=== PATIENT | female | born 1955 | race American Indian/Alaskan Native ===

== ENCOUNTER 2016-09-11 09:52 | Observation (INO) | payer OTHER ==
[2016-09-11] MEDS ORDERED: PROVENTIL IH ONE ×2 (10:13→10:39)
--- NOTE | 2016-09-11 10:34 | XRay Report ---
Single view chest: History: Dyspnea. Findings: Normal cardiomediastinal silhouette. Trachea is midline. No consolidation, pneumothorax or pleural effusion. Impression: No acute cardiopulmonary findings.
[2016-09-11 10:35] LABS: Basophils % (Auto) 0.4 % (0.0-1.8); Eosinophils % (Auto) 1.1 % (0.0-4.3); Hematocrit 39.4 % (30.3-42.9); Hemoglobin 12.8 gm/dl (10.1-14.3); Mean Corpuscular HGB Conc 33 % (30-34); Mean Corpuscular Hemoglobin 30 pg (28-32); Mean Corpuscular Volume 92 fl (79-97); Platelet Count 290 K/mm3 (140-440); Red Blood Count 4.27 M/mm3 (3.65-5.03); Red Cell Distribution Width 14.4 % (13.2-15.2); White Blood Count 18.7 K/mm3 (4.5-11.0)
[2016-09-11 10:52] LABS: Anion Gap 16 mmol/L; BUN/Creatinine Ratio 23.33; Blood Urea Nitrogen 14 mg/dL (7-17); Calcium 9.3 mg/dL (8.4-10.2); Carbon Dioxide 27 mmol/L (22-30); Chloride 101.6 mmol/L (98-107); Glucose 112 mg/dL (65-100); Potassium 3.8 mmol/L (3.6-5.0); Sodium 141 mmol/L (137-145)
[2016-09-11] MEDS ORDERED: NACL 0.9% 1000 ML 1,000 ML IV ONE (10:52)
[2016-09-11] MEDS ORDERED: MAGNESIUM SULFATE 2GM/50ML 2 GM/50 ML BAG IV ONE (10:52)
[2016-09-11 11:31] LABS: Creatine Kinase MB 2.7 ng/mL (0.0-4.0)
--- NOTE | 2016-09-11 11:47 | Emergency Department Report ---
ED Shortness of Breath HPI - General Chief Complaint: Dyspnea/Respdistress Stated Complaint: ADRIAN Time Seen by Provider: 09/11/16 10:52 Source: patient, EMS Mode of arrival: Stretcher Limitations: Other - History of Present Illness MD Complaint: shortness of breath, "asthma attack" -: Gradual Consistency: constant Improves With: oxygen, bronchodilators, upright position Worsens With: lying flat Known History Of: COPD, asthma Context: recent URI Treatments Prior to Arrival: oxygen, bronchodilator - Related Data Home Oxygen Therapy: No Previous Rx's Medication Instructions Recorded Last Taken Type Arformoterol Nebu [Brovana Nebu] 15 mcg IH Q12HRT #60 ml 06/05/16 1 Day Ago Rx 15 Budesonide [Pulmicort Respules] 0.5 mg IH Q12HRT #60 nebu 06/05/16 1 Day Ago Rx 0.5 amLODIPine [Norvasc] 10 mg PO DAILY #30 tablet 06/05/16 1 Day Ago Rx 10 Albuterol Sulfate [Ventolin HFA] 2 puff IH Q4H PRN #90 pump 07/04/16 Unknown Rx Famotidine [Pepcid] 20 mg PO QDAY #30 tablet 07/04/16 Unknown Rx Levofloxacin [Levaquin TAB] 750 mg PO Q24H #5 tablet 07/04/16 Unknown Rx predniSONE [Deltasone] 50 mg PO QDAY #7 tab 07/04/16 Unknown Rx Allergies Allergy/AdvReac Type Severity Reaction Status Date / Time aspirin AdvReac Unknown Verified 09/11/16 10:40 ED Review of Systems ROS: Stated complaint: ADRIAN Other details as noted in HPI Constitutional: denies: chills, fever Eyes: denies: eye pain, eye discharge, vision change ENT: denies: ear pain, throat pain Respiratory: denies: cough, shortness of breath, wheezing Cardiovascular: denies: chest pain, palpitations Endocrine: no symptoms reported Gastrointestinal: denies: abdominal pain, nausea, diarrhea Genitourinary: denies: urgency, dysuria, discharge Musculoskeletal: denies: back pain, joint swelling, arthralgia Skin: denies: rash, lesions Neurological: denies: headache, weakness, paresthesias Psychiatric: denies: anxiety, depression Hematological/Lymphatic: denies: easy bleeding, easy bruising ED Past Medical Hx - Past Medical History Previous Medical History?: Yes Hx Hypertension: Yes Hx Congestive Heart Failure: No Hx Diabetes: No Hx Asthma: Yes (unknown) Hx COPD: Yes (Dx October 2014) Hx HIV: (unknown) Additional medical history: anxiety. Denies previous intubation - Surgical History Past Surgical History?: Yes Additional Surgical History: Ovary surgery - Social History Smoking Status: Never Smoker Substance Use Type: None - Medications Home Medications: Home Medications Medication Instructions Recorded Confirmed Last Taken Type Arformoterol Nebu [Brovana Nebu] 15 mcg IH Q12HRT #60 ml 06/05/16 07/03/16 1 Day Ago Rx 15 Budesonide [Pulmicort Respules] 0.5 mg IH Q12HRT #60 nebu 06/05/16 07/03/16 1 Day Ago Rx 0.5 amLODIPine [Norvasc] 10 mg PO DAILY #30 tablet 06/05/16 07/03/16 1 Day Ago Rx 10 Albuterol Sulfate [Ventolin HFA] 2 puff IH Q4H PRN #90 pump 07/04/16 Unknown Rx Famotidine [Pepcid] 20 mg PO QDAY #30 tablet 07/04/16 Unknown Rx Levofloxacin [Levaquin TAB] 750 mg PO Q24H #5 tablet 07/04/16 Unknown Rx predniSONE [Deltasone] 50 mg PO QDAY #7 tab 07/04/16 Unknown Rx ED Physical Exam - General Limitations: Other General appearance: alert, anxious, in distress - Head Head exam: Present: atraumatic, normocephalic - ENT ENT exam: Present: mucous membranes moist - Neck Neck exam: Present: normal inspection - Respiratory Respiratory exam: Present: respiratory distress, wheezes, rhonchi, accessory muscle use, decreased breath sounds, prolonged expiratory - Cardiovascular Cardiovascular Exam: Present: regular rate, tachycardia. Absent: systolic murmur, diastolic murmur, rubs, gallop - GI/Abdominal GI/Abdominal exam: Present: soft, distended - Extremities Exam Extremities exam: Present: normal inspection - Back Exam Back exam: Present: normal inspection - Skin Skin exam: Present: warm, dry, intact, normal color. Absent: rash ED Course Vital Signs 09/11/16 09/11/16 09/11/16 09:52 10:01 10:06 Temperature 97.3 F L Pulse Rate 114 H 115 H Respiratory 43 H 42 H 35 H Rate Blood Pressure 108/56 108/56 O2 Sat by Pulse 90 93 94 Oximetry 09/11/16 09/11/16 09/11/16 10:15 10:26 10:31 Temperature Pulse Rate 117 H 116 H Respiratory 26 H 22 Rate Blood Pressure 103/59 103/59 O2 Sat by Pulse 94 94 92 Oximetry 09/11/16 09/11/16 09/11/16 10:45 11:00 11:15 Temperature Pulse Rate 121 H 108 H 102 H Respiratory 34 H 30 H 26 H Rate Blood Pressure 112/73 111/68 101/60 O2 Sat by Pulse 87 89 92 Oximetry ED Medical Decision Making - Lab Data Result diagrams: 09/11/16 10:19 09/11/16 10:19 - EKG Data -: EKG Interpreted by Me EKG shows normal: sinus rhythm Rate: normal, tachycardia - EKG Data When compared to previous EKG there are: no significant change, previous EKG unavailable - Radiology Data cxr negative - Medical Decision Making patient will need admission for copd exacerbation. cxr negative / labs negative Critical Care Time: Yes (35) Critical care time in (mins) excluding proc time.: 35 Critical care attestation.: If time is entered above; I have spent that time in minutes in the direct care of this critically ill patient, excluding procedure time. ED Disposition Clinical Impression: COPD exacerbation, Acute bronchitis, Respiratory distress Clinical Impression: (Ruled Out): Hypokalemia Disposition: OP ADMITTED IP TO THIS HOSP Is pt being admited?: Yes Does the pt Need Aspirin: No Condition: Critical Instructions: Chronic Obstructive Pulmonary Disease (ED), Acute Bronchitis (ED) Referrals: PRIMARY CARE, [Primary Care Provider] - 3-5 Days Time of Disposition: 11:47
--- NOTE | 2016-09-11 12:20 | Admit Criteria Form ---
Admission Criteria Documentation: COPD Clinical Indications for Admission to Inpatient Care (Place 'X' for any and all applicable criteria): Admission is indicated for ANY ONE of the following (1)(2)(3): [ ]I. Acute exacerbation by high-risk comorbidity (e.g., pneumonia, dysrhythmia, heart failure, pleural effusion, pneumothorax) or severe underlying COPD (e.g., steroid dependent) [X ]II. Inpatient admission required rather than observation care (see Chronic Obstructive Pulmonary Disease: Observation Care) because of ANY ONE of the following: [X ]a) New or pre-existing signs or symptoms of COPD (eg, dyspnea or Tachypnea at rest or with minimal activity) that persist despite outpatient and observation care treatment [ ]b) New-onset hypoxemia (room air SaO2 less than 90%, PO2 less than 60 mm Hg (8.0 kPa)) that persists despite outpatient and observation care treatment [ ]c) Worsening of pre-existing hypoxemia (eg, new or increased requirement for supplemental oxygen to maintain oxygenation at baseline level) that persists despite outpatient and observation care treatment, with oxygen treatment needs performable only in acute inpatient setting [ ]d) Hypercarbia (PCO2 greater than 40 mm Hg (5.3 kPa))-induced respiratory acidosis (pH less than 7.35) that persists despite outpatient and observation care treatment [ ]e) Supplemental oxygen or respiratory treatments for over 24 hours that are performable only in acute inpatient setting [ ]f) Chest tube placement with active evacuation (e.g., suction, drainage) (5) [ ]g) Other condition, treatment or monitoring requiring inpatient admission [ ]III. Planned invasive surgical or diagnostic procedures requiring acute- care hospitalization [ ]IV. Acute respiratory failure (e.g., uncompensated hypercarbia, severe hypoxemia) [ ]V. Severe comorbid condition (e.g., severe steroid myopathy, acute vertebral fracture) that has acutely worsened pulmonary function [ ]. Confusion state, lethargy, obtundation, stupor or coma Extended stay beyond goal length of stay may be needed for (31)(32): [ ]a ) Respiratory Failure. [ ]b) Severe or persisting hypoxemia or hypercarbia [ ]c) Severe or persistent dyspnea [ ]d) Comorbidities (e.g. chronic heart failure, atrial fibrillation with rapid response, pneumonia) [ ]e) Malnutrition The original [facility] content created by [facility] has been revised. The portions of the content which have been revised are identified through the use of italic text or in bold, and [facility] has neither reviewed nor approved the modified material. All other unmodified content is copyright [facility]. Please see references footnoted in the original [facility] edition 2016 Admission Criteria Met: Yes
[2016-09-11] MEDS ORDERED: MILK OF MAGNESIA PO PRN (12:42)
[2016-09-11] MEDS ORDERED: ZOFRAN IV PRN (12:42)
[2016-09-11] MEDS ORDERED: DULCOLAX PR PRN (12:42)
[2016-09-11] MEDS ORDERED: TYLENOL PO PRN (12:42)
[2016-09-11] MEDS ORDERED: NACL 0.45% 1000 ML 1,000 ML IV SCH (13:00)
--- NOTE | 2016-09-11 13:55 | History and Physical Report ---
History of Present Illness Date of examination: 09/11/16 Chief complaint: Worsening shortness of breath since this morning History of present illness: 61-year-old -[place]i female with history of COPD, hypoxia on home oxygen and chronically short of breath continue with complaints of worsening shortness of breath in spite of using nebulizer treatments at home. She was given [id number] neb treatments with partial response and she is now admitted for COPD exacerbation. She is awake and alert and mildly short of breath. Complains of dry cough which she says is chronic. He denies any fever or chills. Past History Past Medical History: COPD, hypertension, other (hypoxia and anxiety disorder) Past Surgical History: Other (tubal ligation) Social history: no significant social history. denies: smoking, alcohol abuse Family history: no significant family history Medications and Allergies Allergies Allergy/AdvReac Type Severity Reaction Status Date / Time aspirin AdvReac Unknown Verified 09/11/16 10:40 Home Medications Medication Instructions Recorded Confirmed Last Taken Type Arformoterol Nebu [Brovana Nebu] 15 mcg IH Q12HRT #60 ml 06/05/16 07/03/16 1 Day Ago Rx 15 Budesonide [Pulmicort Respules] 0.5 mg IH Q12HRT #60 nebu 06/05/16 07/03/16 1 Day Ago Rx 0.5 amLODIPine [Norvasc] 10 mg PO DAILY #30 tablet 06/05/16 07/03/16 1 Day Ago Rx 10 Albuterol Sulfate [Ventolin HFA] 2 puff IH Q4H PRN #90 pump 07/04/16 Unknown Rx Famotidine [Pepcid] 20 mg PO QDAY #30 tablet 07/04/16 Unknown Rx Levofloxacin [Levaquin TAB] 750 mg PO Q24H #5 tablet 07/04/16 Unknown Rx predniSONE [Deltasone] 50 mg PO QDAY #7 tab 07/04/16 Unknown Rx Active Meds: Active Medications Acetaminophen (Tylenol) 650 mg PO Q4H PRN PRN Reason: Pain MILD(1-3)/Fever >100.5/SKINNER Albuterol/Ipratropium (Duoneb 0.5 Mg-3 Mg/3 Ml Soln) 1 ampul IH Q6HRT SHIVAM Amlodipine Besylate (Norvasc) 5 mg PO DAILY SHIVAM Arformoterol Tartrate (Brovana Nebu) 15 mcg IH Q12HRT [facility] Benzonatate (Tessalon Perles) 200 mg PO Q8H SHIVAM Bisacodyl (Dulcolax) 10 mg [place] QDAY PRN PRN Reason: Constipation unrelieved by MOM Budesonide (Pulmicort) 0.5 mg IH Q12HRT [facility] Famotidine (Pepcid) 20 mg PO QDAY [facility] Heparin Sodium (Porcine) (Heparin) 5,000 unit SUB-Q Q8HR SHIVAM Sodium Chloride (Nacl 0.45% 1000 Ml) 1,000 mls @ 75 mls/hr IV DIRECT SHIVAM Ceftriaxone Sodium (Rocephin/Ns 1 Gm/50 Ml) 1 gm in 50 mls @ 100 mls/hr IV Q24HR SHIVAM PRN Reason: Protocol Magnesium Hydroxide (Milk Of Magnesia) 30 ml PO Q4H PRN PRN Reason: Constipation Methylprednisolone Sodium Succinate (Solu-Medrol) 80 mg IV Q8H SHIVAM Ondansetron HCl (Zofran) 4 mg IV Q8H PRN PRN Reason: N/V unrelieved by Reglan Review of Systems Constitutional: fatigue, weakness (complaints of generalized weakness), no weight loss, no fever, no chills, no night sweats, no chronic pain Ears, nose, mouth and throat: no ear pain, no ear discharge, no nasal congestion , no sore throat, no headache Cardiovascular: high blood pressure, no chest pain, no palpitations, no syncope , no lightheadedness Respiratory: cough (chronic dry cough), shortness of breath (as stated above in the history of present illness), dyspnea on exertion, home oxygen, no congestion , no wheezing Gastrointestinal: no abdominal pain, no nausea, no vomiting, no diarrhea, no constipation, no melena Genitourinary Female: no stress incontinence, no urge incontinence Menstruation: postmenopausal Rectal: no pain Musculoskeletal: no neck stiffness, no neck pain, no arthritis Integumentary: no pruritis Neurological: no seizures, no syncope Psychiatric: anxiety, no depression Exam - Constitutional Vitals: Temp Pulse Resp BP Pulse Ox 97.3 F L 102 H 26 H 101/60 92 09/11/16 10:06 09/11/16 11:15 09/11/16 11:15 09/11/16 11:15 09/11/16 11:15 General appearance: Present: mild distress - EENT Eyes: Present: PERRL, EOM intact ENT: hearing intact - Neck Neck: Present: supple, normal ROM. Absent: masses or JVD, carotid bruits - Respiratory Respiratory effort: labored (mildly short of breath) Respiratory: bilateral: diminished, negative: rales, rhonchi, wheezing - Cardiovascular Rhythm: regular Heart Sounds: Present: S1 & S2 - Extremities Extremities: No edema - Abdominal General gastrointestinal: Present: soft, non-tender. Absent: hepatomegaly, splenomegaly - Rectal Rectal Exam: deferred - Integumentary Integumentary: Present: clear - Musculoskeletal Musculoskeletal: strength equal bilaterally - Psychiatric Psychiatric: appropriate mood/affect - Neurologic Neurologic: no focal deficits Results - Labs CBC & Chem 7: 09/11/16 10:19 09/11/16 10:19 Labs: Abnormal lab results 09/11/16 09/11/16 09/11/16 Range/Units 10:19 10:19 10:52 WBC 18.7 H (4.5-11.0) K/mm3 Lymph % (Auto) 7.3 L (13.4-35.0) % [place] # 1.0 H (0.0-0.8) K/mm3 Seg Neutrophils % 86.1 H (40.0-70.0) % Seg Neutrophils # 16.2 H (1.8-7.7) K/mm3 Creatinine 0.6 L (0.7-1.2) mg/dL Glucose 112 H (65-100) mg/dL Total Creatine Kinase 138 H (30-135) units/L Assessment and Plan - Patient Problems (1) COPD exacerbation Current Visit: Yes Status: Acute Plan to address problem: Patient has partially responded to aggressive nebulizer treatments while in the ED We'll admit the patient on observation status. Continue aggressive nebulizer treatments Will start on intravenous steroids and empiric antibiotics and oxygen supplements (2) Acute and chronic respiratory failure ([id number]) Current Visit: No Status: Acute Qualifiers: Respiratory failure complication: hypoxia and hypercapnia Qualified Code(s) : J96.21 - Acute and chronic respiratory failure with hypoxia; J96.22 - Acute and chronic respiratory failure with hypercapnia Plan to address problem: Continue oxygen via nasal cannula at 3 L and her present oxygen saturation is about 90% Continue intravenous steroids and empiric antibiotics (3) HTN (hypertension), benign Current Visit: No Status: Chronic Plan to address problem: We will decrease the amlodipine to 5 mg for now monitor blood pressure (4) Leukocytosis Current Visit: No Status: Acute Qualifiers: Leukocytosis type: L Plan to address problem: Most likely steroid-induced as there is no focus of infection Reviewing the home medications she is taking 50 mg of prednisone History x-ray shows no acute infiltrate or effusion
[2016-09-11] MEDS ORDERED: PEPCID ONE (13:58)
[2016-09-11] MEDS ORDERED: ROCEPHIN/NS 1 GM/50 ML 1 GM/50 ML BAG IV ONE (13:58)
[2016-09-11] MEDS ORDERED: TESSALON PERLES PO ONE (13:58)
[2016-09-11] MEDS: PEPCID PO SCH (14:06)
[2016-09-11] MEDS: TESSALON PERLES PO SCH ×2 (14:06→21:12)
[2016-09-11] MEDS: ROCEPHIN/NS 1 GM/50 ML 1 GM/50 ML BAG IV SCH (14:10)
[2016-09-11] MEDS: DUONEB 0.5 MG-3 MG/3 ML SOLN IH SCH ×2 (15:02→22:05)
[2016-09-11] MEDS: HEPARIN SUB-Q SCH ×2 (17:41→21:15)
[2016-09-11] MEDS: PULMICORT IH SCH (21:11)
[2016-09-11] MEDS: BROVANA NEBU IH SCH (21:12)
[2016-09-12] MEDS: DUONEB 0.5 MG-3 MG/3 ML SOLN IH SCH ×4 (03:40→19:54)
[2016-09-12] MEDS: HEPARIN SUB-Q SCH ×2 (05:54→14:58)
[2016-09-12] MEDS: TESSALON PERLES PO SCH ×2 (06:43→14:58)
[2016-09-12] MEDS: BROVANA NEBU IH SCH ×2 (08:40→19:53)
[2016-09-12] MEDS: PULMICORT IH SCH ×2 (08:40→19:53)
[2016-09-12 08:43] LABS: Hematocrit 38.3 % (30.3-42.9); Mean Corpuscular HGB Conc 31 % (30-34); Mean Corpuscular Hemoglobin 29 pg (28-32); Mean Corpuscular Volume 93 fl (79-97); Platelet Count 289 K/mm3 (140-440); Red Blood Count 4.12 M/mm3 (3.65-5.03); Red Cell Distribution Width 14.3 % (13.2-15.2); White Blood Count 13.5 K/mm3 (4.5-11.0)
[2016-09-12 09:03] LABS: Anion Gap 17 mmol/L; Blood Urea Nitrogen 13 mg/dL (7-17); Calcium 8.9 mg/dL (8.4-10.2); Carbon Dioxide 26 mmol/L (22-30); Chloride 103.4 mmol/L (98-107); Glucose 113 mg/dL (65-100); Potassium 4.1 mmol/L (3.6-5.0); Sodium 142 mmol/L (137-145)
[2016-09-12] MEDS: NORVASC PO SCH (11:31)
[2016-09-12] MEDS: PEPCID PO SCH (12:00)
[2016-09-12] MEDS: ROCEPHIN/NS 1 GM/50 ML 1 GM/50 ML BAG IV SCH (12:01)
--- NOTE | 2016-09-12 14:10 | Progress Note ---
Assessment and Plan Assessment and plan: COPD exacerbation - On Solu-Medrol, oxygen support, breathing treatment, IV antibiotics Debility - Patient needs longterm placement - PT/OT ordered Leukocytosis - Likely from steroid treatment DVT prophylaxis Disposition - Will be discharged once he found placement History Interval history: Patient is short of breath getting better. Patient stated he is not able to do her ADLs. Patient is uninsured, she needs placement. 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 The patient appeared well nourished and normally developed. Vital signs as documented. Head exam is unremarkable. No scleral icterus . Neck is without jugular venous distension, thyromegaly, or carotid bruits. Lungs scattered wheezing. Cardiac exam reveals regular rate and Rhythm. First and second heart sounds normal. No murmurs, rubs or gallops. Abdominal exam reveals normal bowel sounds, no masses, no organomegaly and no aortic enlargement. Extremities are nonedematous and both femoral and pedal pulses are normal. HEAD LOADER: Alert and oriented 3. . - Constitutional Vitals: Temp Pulse Resp BP Pulse Ox 98.3 F 90 20 110/58 94 09/12/16 08:00 09/12/16 08:00 09/12/16 08:00 09/12/16 11:31 09/12/16 08:00 General appearance: Present: mild distress Results - Labs CBC & Chem 7: 09/12/16 07:59 09/12/16 07:59 Labs: Laboratory Last Values WBC 13.5 K/mm3 (4.5-11.0) H 09/12/16 07:59 RBC 4.12 M/mm3 (3.65-5.03) 09/12/16 07:59 Hgb 12.0 gm/dl (10.1-14.3) 09/12/16 07:59 Hct 38.3 % (30.3-42.9) 09/12/16 07:59 MCV 93 fl (79-97) 09/12/16 07:59 MCH 29 pg (28-32) 09/12/16 07:59 MCHC 31 % (30-34) 09/12/16 07:59 RDW 14.3 % (13.2-15.2) 09/12/16 07:59 Plt Count 289 K/mm3 (140-440) 09/12/16 07:59 Lymph % (Auto) 9.6 % (13.4-35.0) L 09/12/16 07:59 Wise % (Auto) 3.3 % (0.0-7.3) 09/12/16 07:59 Eos % (Auto) 0.0 % (0.0-4.3) 09/12/16 07:59 Baso % (Auto) 0.0 % (0.0-1.8) 09/12/16 07:59 Lymph # 1.3 K/mm3 (1.2-5.4) 09/12/16 07:59 Wise # 0.4 K/mm3 (0.0-0.8) 09/12/16 07:59 Eos # 0.0 K/mm3 (0.0-0.4) 09/12/16 07:59 Baso # 0.0 K/mm3 (0.0-0.1) 09/12/16 07:59 Seg Neutrophils % 87.1 % (40.0-70.0) H 09/12/16 07:59 Seg Neutrophils # 11.7 K/mm3 (1.8-7.7) H 09/12/16 07:59 Sodium 142 mmol/L (137-145) 09/12/16 07:59 Potassium 4.1 mmol/L (3.6-5.0) 09/12/16 07:59 Chloride 103.4 mmol/L (98-107) 09/12/16 07:59 Carbon Dioxide 26 mmol/L (22-30) 09/12/16 07:59 Anion Gap 17 mmol/L 09/12/16 07:59 BUN 13 mg/dL (7-17) 09/12/16 07:59 Creatinine 0.5 mg/dL (0.7-1.2) L 09/12/16 07:59 Estimated GFR > 60 ml/min 09/12/16 07:59 BUN/Creatinine Ratio 26.00 % 09/12/16 07:59 Glucose 113 mg/dL (65-100) H 09/12/16 07:59 Calcium 8.9 mg/dL (8.4-10.2) 09/12/16 07:59 Total Creatine Kinase 138 units/L (30-135) H 09/11/16 10:52 CK-MB (CK-2) 2.7 ng/mL (0.0-4.0) 09/11/16 10:52 CK-MB (CK-2) Rel Index 1.9 (0-4) 09/11/16 10:52 Troponin T < 0.010 ng/mL (0.00-0.029) 09/11/16 10:19
[2016-09-13] MEDS: TESSALON PERLES PO SCH ×2 (01:46→08:08)
[2016-09-13] MEDS: HEPARIN SUB-Q SCH ×3 (01:47→07:13)
[2016-09-13] MEDS: DUONEB 0.5 MG-3 MG/3 ML SOLN IH SCH ×3 (02:56→14:31)
[2016-09-13 07:14] LABS: Hematocrit 37.4 % (30.3-42.9); Hemoglobin 11.8 gm/dl (10.1-14.3); Mean Corpuscular HGB Conc 32 % (30-34); Mean Corpuscular Hemoglobin 30 pg (28-32); Mean Corpuscular Volume 94 fl (79-97); Platelet Count 294 K/mm3 (140-440); White Blood Count 17.2 K/mm3 (4.5-11.0)
[2016-09-13 07:40] LABS: Anion Gap 15 mmol/L; Blood Urea Nitrogen 14 mg/dL (7-17); Calcium 8.9 mg/dL (8.4-10.2); Carbon Dioxide 26 mmol/L (22-30); Chloride 101.7 mmol/L (98-107); Glucose 119 mg/dL (65-100); Sodium 139 mmol/L (137-145)
[2016-09-13] MEDS: PULMICORT IH SCH (08:16)
[2016-09-13] MEDS: BROVANA NEBU IH SCH (08:16)
[2016-09-13 08:50] LABS: Anisocytosis 1+; Basophils % (Manual) 0 % (0.0-1.8); Blastocytes % (Manual) 0 %; Diff Status Complete; Elliptocytes Rare; Eosinophils % (Manual) 0 % (0.0-4.3); Ovalocytes Few; Stomatocytes Rare
[2016-09-13] MEDS: PEPCID PO SCH (09:45)
[2016-09-13] MEDS: NORVASC PO SCH (09:56)
--- NOTE | 2016-09-13 10:06 | Discharge Summary ---
Providers - Providers Date of Admission: 09/11/16 12:42 Date of discharge: 09/13/16 Attending physician: ADAM ROMO MD 09/12/16 09:52 Occupational Therapy Evaluate and Treat [CONS] Urgent Comment: Reason For Exam: SNF Placement Physical Therapy Evaluation and Treat [CONS] Urgent Comment: Reason For Exam: SNF Placement Primary care physician: [employer] Hospitalization Reason for admission: COPD exacerbation Condition: Critical Hospital course: 61-year-old -Citizen Of [place] female with history of COPD, hypoxia on home oxygen and chronically short of breath continue with complaints of worsening shortness of breath in spite of using nebulizer treatments at home. Patient was admitted for copd exacerbation and treated with steroids, antibiotics and breathing treatments. The patient showed marked improvement. The patient claimed she had difficulty in her ADLs and the plan was to place her in senior living because of she is unfunded we couldn't. We called her daughter and she said she will take with her and the patient agreed with the plan and discharged the patient. Appropriate meds were refilled at the time of discharge. Patient was stable at the time of discharge and her O2 sats were in the mid 90's. Disposition: DISCHARGED TO HOME OR SELFCARE Time spent for discharge: 31 minutes - Discharge Diagnoses (1) Debility, unspecified Status: Acute (2) COPD exacerbation Status: Acute (3) Acute and chronic respiratory failure ([id number]) Status: Acute Qualifiers: Respiratory failure complication: hypoxia and hypercapnia Qualified Code(s) : J96.21 - Acute and chronic respiratory failure with hypoxia; J96.22 - Acute and chronic respiratory failure with hypercapnia Core Measure Documentation - Palliative Care Palliative Care/ Comfort Measures: Not Applicable - Core Measures Any of the following diagnoses?: none Exam - Physical Exam Narrative exam: Not in cardiopulmonary distress. The patient appeared well nourished and normally developed. Vital signs as documented. Head exam is unremarkable. No scleral icterus . Neck is without jugular venous distension, thyromegaly, or carotid bruits. Lungs CTAB. Cardiac exam reveals regular rate and Rhythm. First and second heart sounds normal. No murmurs, rubs or gallops. Abdominal exam reveals normal bowel sounds, no masses, no organomegaly and no aortic enlargement. Extremities are nonedematous and both femoral and pedal pulses are normal. GLASS VIAL FILLER: Alert and oriented 3. . - Constitutional Vitals: Temp Pulse Resp BP Pulse Ox 98 F 80 20 110/68 94 09/13/16 00:00 09/13/16 09:56 09/13/16 08:16 09/13/16 09:56 09/13/16 08:16 Plan Activity: advance as tolerated Weight Bearing Status: Full Weight Bearing Diet: low salt Follow up with: PRIMARY CARE, [Primary Care Provider] - 3-5 Days Prescriptions: Arformoterol Nebu [Brovana Nebu] 15 mcg IH Q12HRT #60 ml Budesonide [Pulmicort Respules] 0.5 mg IH Q12HRT #60 nebu Levofloxacin [Levaquin TAB] 500 mg PO Q24H #5 tablet Prednisone [predniSONE 5 mg (6-Day Pack, 21 Tabs)] 5 mg PO .TAPER #1 tab.ds.pk
[2016-09-13] MEDS: ROCEPHIN/NS 1 GM/50 ML 1 GM/50 ML BAG IV SCH (12:02)
[2016-09-13 14:37] VITALS: BP 131/84
== END 2016-09-13 14:30 | disposition home or self-care (01) ==
LOC: ED 09:52 → 3A 12:42
PROVIDERS: ADMIT Internal Medicine; ATTEND Internal Medicine
DX: J44.1 Chronic obstructive pulmonary disease with (acute) exacerbation (principal); J96.21 Acute and chronic respiratory failure with hypoxia; J96.22 Acute and chronic respiratory failure with hypercapnia; I10 Essential (primary) hypertension; R53.81 Other malaise; D72.829 Elevated white blood cell count, unspecified; Z98.890 Other specified postprocedural states
CPT/HCPCS: 36415; 71010; 80048; 82550; 82553; 84484; 85007; 85025; 93005; 93010; 94640; 94760; 96361; 96365; 96366; 96375; 96376; G0378; J0696; J1644; J2920; J3475; J7030

== ENCOUNTER 2016-10-12 21:31 | Inpatient (IN) | payer SELFPAY ==
[2016-10-12] MEDS ORDERED: PROVENTIL IH ONE (21:38)
[2016-10-12] MEDS ORDERED: NACL 0.9% 1000 ML 1,000 ML IV ONE (21:38)
[2016-10-12 22:04] LABS: Basophils % (Auto) 0.6 % (0.0-1.8); Eosinophils % (Auto) 2.6 % (0.0-4.3); Hematocrit 41.6 % (30.3-42.9); Hemoglobin 13.3 gm/dl (10.1-14.3); Mean Corpuscular HGB Conc 32 % (30-34); Mean Corpuscular Hemoglobin 30 pg (28-32); Mean Corpuscular Volume 94 fl (79-97); Platelet Count 271 K/mm3 (140-440); Red Blood Count 4.45 M/mm3 (3.65-5.03); Red Cell Distribution Width 15.7 % (13.2-15.2); White Blood Count 17.7 K/mm3 (4.5-11.0)
[2016-10-12] MEDS ORDERED: DECADRON IV ONE (22:10)
[2016-10-12] MEDS ORDERED: LASIX IV ONE (22:10)
--- NOTE | 2016-10-12 22:10 | Emergency Department Report ---
ED Shortness of Breath HPI - General Stated Complaint: ADRIAN Time Seen by Provider: 10/12/16 21:37 - History of Present Illness Initial Comments: This is a 61-year-old female with long-standing history of COPD. She does use albuterol routinely home. She is also on theophylline. She states that over the course the day she's felt increasingly dyspneic. She has been trialing her albuterol nebulizer but it has not been keeping up with her dyspnea. She states that she is having a lot of mucus as well. She denies fever. She states that she still been able eat and drink. She reports she lives alone and this causes her fingers well. She ultimately called EMS tonight. They found her in respiratory distress. With oxygen saturations in the mid 70s. She was given breathing treatments on route as well as Solu-Medrol and magnesium. She does subjectively reports some mild improvement with this. Upon arrival to our ER she still appears quite dyspneic however. Patient does not report any chest pain or any other pains at this time. Improves With: oxygen Worsens With: movement Associated Symptoms: denies other symptoms - Related Data Home Medications Medication Instructions Recorded Confirmed Last Taken Benzonatate [Tessalon Perles] 100 mg PO Q8HR PRN 10/12/16 10/12/16 Unknown Budesoni/Formotero 160-4.5(Nf) 2 puff IH BID 10/12/16 10/12/16 Unknown [Symbicort 160-4.5 (Nf)] Docusate Sodium [Colace CAP] 100 mg PO DAILY 10/12/16 10/12/16 Unknown LORazepam [Ativan] 0.5 mg PO Q6H PRN 10/12/16 10/12/16 Unknown Promethazine /Codeine 5 ml PO Q6H PRN 10/12/16 10/12/16 Unknown [Phenergan/Codeine 6.25-10 mg/5Ml] Rosuvastatin Calcium 20 mg PO DAILY 10/12/16 10/12/16 Unknown Sennosides [Senna Lax] 8.6 mg PO BID 10/12/16 10/12/16 Unknown Theophylline Anhydrous ER [Theodur] 300 mg PO DAILY 10/12/16 10/12/16 Unknown amLODIPine [Norvasc] 5 mg PO DAILY 10/12/16 10/12/16 Unknown predniSONE [Deltasone] 5 mg PO DAILY 10/12/16 10/12/16 Unknown Previous Rx's Medication Instructions Recorded Last Taken Type Albuterol Sulfate [Ventolin HFA] 2 puff IH Q4H PRN #90 pump 07/04/16 Unknown Rx Famotidine [Pepcid] 20 mg PO QDAY #30 tablet 07/04/16 Unknown Rx Allergies Allergy/AdvReac Type Severity Reaction Status Date / Time aspirin AdvReac Unknown Verified 10/12/16 21:44 ED Review of Systems ROS: Stated complaint: ADRIAN Other details as noted in HPI Comment: All other systems reviewed and negative Constitutional: denies: chills, fever Eyes: denies: eye pain, eye discharge, vision change ENT: denies: ear pain, throat pain Respiratory: shortness of breath, SOB with exertion, SOB at rest. denies: cough , wheezing Cardiovascular: denies: chest pain, palpitations Endocrine: no symptoms reported Gastrointestinal: denies: abdominal pain, nausea, diarrhea Genitourinary: denies: urgency, dysuria, discharge Musculoskeletal: denies: back pain, joint swelling, arthralgia Skin: denies: rash, lesions Neurological: denies: headache, weakness, paresthesias Psychiatric: denies: anxiety, depression Hematological/Lymphatic: denies: easy bleeding, easy bruising ED Past Medical Hx - Past Medical History Hx Hypertension: Yes Hx Congestive Heart Failure: No Hx Diabetes: No Hx Asthma: Yes (unknown) Hx COPD: Yes Hx HIV: (unknown) Additional medical history: anxiety. Denies previous intubation - Surgical History Additional Surgical History: Ovary surgery - Social History Smoking Status: Former Smoker - Medications Home Medications: Home Medications Medication Instructions Recorded Confirmed Last Taken Type Albuterol Sulfate [Ventolin HFA] 2 puff IH Q4H PRN #90 pump 07/04/16 10/12/16 Unknown Rx Famotidine [Pepcid] 20 mg PO QDAY #30 tablet 07/04/16 10/12/16 Unknown Rx Benzonatate [Tessalon Perles] 100 mg PO Q8HR PRN 10/12/16 10/12/16 Unknown History Budesoni/Formotero 160-4.5(Nf) 2 puff IH BID 10/12/16 10/12/16 Unknown History [Symbicort 160-4.5 (Nf)] Docusate Sodium [Colace CAP] 100 mg PO DAILY 10/12/16 10/12/16 Unknown History LORazepam [Ativan] 0.5 mg PO Q6H PRN 10/12/16 10/12/16 Unknown History Promethazine /Codeine 5 ml PO Q6H PRN 10/12/16 10/12/16 Unknown History [Phenergan/Codeine 6.25-10 mg/5Ml] Rosuvastatin Calcium 20 mg PO DAILY 10/12/16 10/12/16 Unknown History Sennosides [Senna Lax] 8.6 mg PO BID 10/12/16 10/12/16 Unknown History Theophylline Anhydrous ER [Theodur] 300 mg PO DAILY 10/12/16 10/12/16 Unknown History amLODIPine [Norvasc] 5 mg PO DAILY 10/12/16 10/12/16 Unknown History predniSONE [Deltasone] 5 mg PO DAILY 10/12/16 10/12/16 Unknown History ED Physical Exam - General General appearance: alert, in distress (respiratory) - Head Head exam: Present: atraumatic, normocephalic - Eye Eye exam: Present: normal appearance, EOMI. Absent: scleral icterus - ENT ENT exam: Present: normal exam, normal orophraynx, mucous membranes moist - Neck Neck exam: Present: normal inspection, full ROM. Absent: tenderness, lymphadenopathy - Respiratory Respiratory exam: Present: respiratory distress, wheezes, decreased breath sounds (moderate). Absent: rales, rhonchi - Cardiovascular Cardiovascular Exam: Present: regular rate, normal rhythm. Absent: systolic murmur, diastolic murmur, rubs, gallop - GI/Abdominal GI/Abdominal exam: Present: soft, normal bowel sounds. Absent: tenderness, guarding - Extremities Exam Extremities exam: Present: normal inspection, pedal edema (trace). Absent: tenderness, calf tenderness - Back Exam Back exam: Present: normal inspection. Absent: tenderness, CVA tenderness (R), CVA tenderness (L), vertebral tenderness - Neurological Exam Neurological exam: Present: alert, oriented X3 - Psychiatric Psychiatric exam: Present: normal affect, normal mood - Skin Skin exam: Present: warm, dry, intact, normal color. Absent: rash ED Course Vital Signs 10/12/16 10/12/16 10/12/16 21:31 21:39 21:46 Temperature 99.2 F Pulse Rate 120 H 105 H Pulse Rate [ Anterior Bilateral Throughout] Respiratory 30 H 25 H 21 Rate Respiratory Rate [Anterior Bilateral Throughout] Blood Pressure 150/82 Blood Pressure [Left] O2 Sat by Pulse 89 95 Oximetry 10/12/16 10/12/16 10/12/16 21:54 21:57 22:00 Temperature Pulse Rate 101 H 102 H 99 H Pulse Rate [ Anterior Bilateral Throughout] Respiratory 22 19 Rate Respiratory Rate [Anterior Bilateral Throughout] Blood Pressure Blood Pressure [Left] O2 Sat by Pulse 99 96 95 Oximetry 10/12/16 10/12/16 10/12/16 22:12 22:16 22:23 Temperature Pulse Rate 91 H Pulse Rate [ 96 H 912 H Anterior Bilateral Throughout] Respiratory 17 Rate Respiratory 20 18 Rate [Anterior Bilateral Throughout] Blood Pressure Blood Pressure [Left] O2 Sat by Pulse 99 Oximetry 10/12/16 10/12/16 10/12/16 22:30 22:45 23:00 Temperature Pulse Rate 94 H 95 H 91 H Pulse Rate [ Anterior Bilateral Throughout] Respiratory 22 17 18 Rate Respiratory Rate [Anterior Bilateral Throughout] Blood Pressure 98/61 98/57 95/56 Blood Pressure 104/56 [Left] O2 Sat by Pulse 97 Oximetry - Reevaluation(s) Reevaluation #1: 10/12/16 22:26 ECG at 2152 with sinus tachycardia at 102 bpm. With a normal CA and QRS. right axis is noted. Otherwise unremarkable ECG. Reevaluation #2: 10/13/16 00:01 Age and experiencing severe significant respiratory difficulties upon arrival to the ED. She was placed on BiPAP. She did very well on BiPAP. She subjectively reports feeling much more comfortable. Objectively she appears very comfortable was wearing well. We were quickly able to wean her down the FiO2 to 40%. She still has also pressure support. Chest x-ray does not demonstrate any specific infiltrative process. Labs are noted. White blood cell count is elevated. I suspect this is more likely reactive due to distress she's been under. Have not initiated antibiotics at this point. Again she did receive the steroids by EMS. She has had some subjective improvement as well as she is continually receive albuterol here. ED Medical Decision Making - Lab Data Result diagrams: 10/12/16 21:49 10/12/16 21:49 - Radiology Data interpreted by me: COPD changes chronically. No infiltrate. Normal cardiac silhouette. - Medical Decision Making I did speak with the hospitalist regarding admission and she is agreeable with this. I did consider cardiac etiology as well as PE. I think both are very unlikely. ECG here is unremarkable in general bother slight tachycardia. From a PE standpoint A think COPD is much more likely given the patient's recent dictation history. I did not pursue PE. Critical care attestation.: If time is entered above; I have spent that time in minutes in the direct care of this critically ill patient, excluding procedure time. ED Disposition Clinical Impression: COPD exacerbation Disposition: OP ADMITTED IP TO THIS HOSP Is pt being admited?: Yes Does the pt Need Aspirin: No Condition: Stable Referrals: PRIMARY CARE, [Primary Care Provider] - 3-5 Days Time of Disposition: 22:33
[2016-10-12 22:25] LABS: Alanine Aminotransferase 32 units/L (7-56); Albumin 3.5 g/dL (3.9-5); Albumin/Globulin Ratio 0.9 %; Alkaline Phosphatase 71 units/L (35-129); Anion Gap 14 mmol/L; BUN/Creatinine Ratio 17.14; Bilirubin,Total 0.6 mg/dL (0.1-1.2); Blood Urea Nitrogen 12 mg/dL (7-17); Calcium 8.9 mg/dL (8.4-10.2); Carbon Dioxide 27 mmol/L (22-30); Chloride 100.3 mmol/L (98-107); Glucose 126 mg/dL (65-100); Potassium 3.7 mmol/L (3.6-5.0); Sodium 138 mmol/L (137-145); Total Protein 7.3 g/dL (6.3-8.2)
[2016-10-12] MEDS ORDERED: DULCOLAX PR PRN (23:21)
[2016-10-12] MEDS ORDERED: MILK OF MAGNESIA PO PRN (23:21)
[2016-10-12] MEDS ORDERED: TYLENOL PO PRN (23:21)
[2016-10-12] MEDS ORDERED: ZOFRAN IV PRN (23:21)
--- NOTE | 2016-10-12 23:27 | History and Physical Report ---
History of Present Illness Date of examination: 10/13/16 History of present illness: 61-year-old woman with a history of COPD, hypertension, anxiety comes emergency room complaining of shortness of breath started today. She complains of cough productive of white phlegm. Her symptoms were not relieved with nebulizer treatments at home Patient denies chest pain, palpitation, abdominal pain, hematochezia, dysuria, frequency, focal weakness, dysarthria, fever chills, polydipsia polyuria, hot or cold intolerance, easy bruisability, or rash or bleeding from mucosal membrane, rhinorrhea, epistaxis, earache, tinnitus, blurry vision, eye discharge , anxiety, depression. Other review of systems negative PAST SURGICAL HISTORY: Tubal ligation SOCIAL HISTORY: Denies alcohol, tobacco, drugs FAMILY HISTORY: Hypertension Medications and Allergies Allergies Allergy/AdvReac Type Severity Reaction Status Date / Time aspirin AdvReac Unknown Verified 10/12/16 21:44 Home Medications Medication Instructions Recorded Confirmed Last Taken Type Albuterol Sulfate [Ventolin HFA] 2 puff IH Q4H PRN #90 pump 07/04/16 10/12/16 Unknown Rx Famotidine [Pepcid] 20 mg PO QDAY #30 tablet 07/04/16 10/12/16 Unknown Rx Benzonatate [Tessalon Perles] 100 mg PO Q8HR PRN 10/12/16 10/12/16 Unknown History Budesoni/Formotero 160-4.5(Nf) 2 puff IH BID 10/12/16 10/12/16 Unknown History [Symbicort 160-4.5 (Nf)] Docusate Sodium [Colace CAP] 100 mg PO DAILY 10/12/16 10/12/16 Unknown History LORazepam [Ativan] 0.5 mg PO Q6H PRN 10/12/16 10/12/16 Unknown History Promethazine /Codeine 5 ml PO Q6H PRN 10/12/16 10/12/16 Unknown History [Phenergan/Codeine 6.25-10 mg/5Ml] Rosuvastatin Calcium 20 mg PO DAILY 10/12/16 10/12/16 Unknown History Sennosides [Senna Lax] 8.6 mg PO BID 10/12/16 10/12/16 Unknown History Theophylline Anhydrous ER [Theodur] 300 mg PO DAILY 10/12/16 10/12/16 Unknown History amLODIPine [Norvasc] 5 mg PO DAILY 10/12/16 10/12/16 Unknown History predniSONE [Deltasone] 5 mg PO DAILY 10/12/16 10/12/16 Unknown History Exam - Physical Exam Narrative exam: Gen. appearance: Patient lying in bed, no apparent distress HEENT: Normocephalic, atraumatic, pupils equally round and reactive to light, extraocular movement intact, and no sclericterus,. No JVD or thyromegaly or nodule,neck supple, no carotid bruit ,mucous membranes moist, no exudate or erythema Heart: S1, S2, regular rate and rhythm Lungs: Wheezing bilaterally, breathing comfortable Abdomen: Positive bowel sounds, nontender, nondistended, no organomegaly Extremity: No edema, cyanosis, clubbing Skin: No rash, nodules, warm, dry Neuro: Oriented 3, cranial nerves II-12 intact, speech is fluent, motor and sensory intact - Constitutional Vitals: Temp Pulse Resp BP Pulse Ox 99.2 F 91 H 18 95/56 97 10/12/16 21:31 10/12/16 23:00 10/12/16 23:00 10/12/16 23:00 10/12/16 22:30 Results - Labs CBC & Chem 7: 10/12/16 21:49 10/12/16 21:49 Labs: Abnormal lab results 10/12/16 10/12/16 Range/Units 21:49 21:49 WBC 17.7 H (4.5-11.0) K/mm3 RDW 15.7 H (13.2-15.2) % [place] % (Auto) 7.7 H (0.0-7.3) % [place] # 1.4 H (0.0-0.8) K/mm3 Eos # 0.5 H (0.0-0.4) K/mm3 Seg Neutrophils % 72.8 H (40.0-70.0) % Seg Neutrophils # 12.9 H (1.8-7.7) K/mm3 Glucose 126 H (65-100) mg/dL Albumin 3.5 L (3.9-5) g/dL - Imaging and Cardiology EKG: image reviewed Chest x-ray: image reviewed Assessment and Plan COPD exacerbation with bronchitis Hypertension Anxiety Admit to medicine Start high-dose IV steroids, nebulized treatments, azithromycin Check cardiac enzymes, continue appropriate outpatient medications, start prophylaxis
[2016-10-13 00:04] LABS: Creatine Kinase MB 2.2 ng/mL (0.0-4.0)
[2016-10-13 00:05] LABS: Creatine Kinase 73 units/L (30-135)
[2016-10-13] MEDS: ZITHROMAX 500 MG in NACL 0.9% 250ML 250 ML IV SCH ×2 (00:47→11:14)
[2016-10-13] MEDS: DUONEB 0.5 MG-3 MG/3 ML SOLN IH SCH ×3 (03:00→16:02)
[2016-10-13 07:02] LABS: Anion Gap 16 mmol/L; Blood Urea Nitrogen 18 mg/dL (7-17); Calcium 8.9 mg/dL (8.4-10.2); Carbon Dioxide 27 mmol/L (22-30); Chloride 103.1 mmol/L (98-107); Glucose 155 mg/dL (65-100); Potassium 4.5 mmol/L (3.6-5.0); Sodium 142 mmol/L (137-145)
[2016-10-13 07:08] LABS: Hemoglobin 12.4 gm/dl (10.1-14.3); Mean Corpuscular HGB Conc 31 % (30-34); Mean Corpuscular Hemoglobin 29 pg (28-32); Mean Corpuscular Volume 95 fl (79-97); Platelet Count 248 K/mm3 (140-440); Red Blood Count 4.21 M/mm3 (3.65-5.03); Red Cell Distribution Width 15.8 % (13.2-15.2)
[2016-10-13 07:09] LABS: Creatine Kinase 64 units/L (30-135)
--- NOTE | 2016-10-13 08:38 | XRay Report ---
AP CHEST: HISTORY: Dyspnea The lungs are hyperinflated but are clear. No evidence for pneumonia, pleural effusion or pneumothorax. Heart and mediastinal structures are within normal limits. Normal bony thorax. IMPRESSION: Hyperinflation likely representing emphysematous changes. No acute change since 09/11/16.
--- NOTE | 2016-10-13 08:46 | Admit Criteria Form ---
Admission Criteria Documentation: COPD Clinical Indications for Admission to Inpatient Care (Place 'X' for any and all applicable criteria): Admission is indicated for ANY ONE of the following (1)(2)(3): [ ]I. Acute exacerbation by high-risk comorbidity (e.g., pneumonia, dysrhythmia, heart failure, pleural effusion, pneumothorax) or severe underlying COPD (e.g., steroid dependent) [X]II. Inpatient admission required rather than observation care (see Chronic Obstructive Pulmonary Disease: Observation Care) because of ANY ONE of the following: [X]a) New or pre-existing signs or symptoms of COPD (eg, dyspnea or Tachypnea at rest or with minimal activity) that persist despite outpatient and observation care treatment [ ]b) New-onset hypoxemia (room air SaO2 less than 90%, PO2 less than 60 mm Hg (8.0 kPa)) that persists despite outpatient and observation care treatment [ ]c) Worsening of pre-existing hypoxemia (eg, new or increased requirement for supplemental oxygen to maintain oxygenation at baseline level) that persists despite outpatient and observation care treatment, with oxygen treatment needs performable only in acute inpatient setting [ ]d) Hypercarbia (PCO2 greater than 40 mm Hg (5.3 kPa))-induced respiratory acidosis (pH less than 7.35) that persists despite outpatient and observation care treatment [ ]e) Supplemental oxygen or respiratory treatments for over 24 hours that are performable only in acute inpatient setting [ ]f) Chest tube placement with active evacuation (e.g., suction, drainage) (5) [ ]g) Other condition, treatment or monitoring requiring inpatient admission [ ]III. Planned invasive surgical or diagnostic procedures requiring acute- care hospitalization [ ]IV. Acute respiratory failure (e.g., uncompensated hypercarbia, severe hypoxemia) [ ]V. Severe comorbid condition (e.g., severe steroid myopathy, acute vertebral fracture) that has acutely worsened pulmonary function [ ]. Confusion state, lethargy, obtundation, stupor or coma Extended stay beyond goal length of stay may be needed for (31)(32): [ ]a ) Respiratory Failure. [ ]b) Severe or persisting hypoxemia or hypercarbia [ ]c) Severe or persistent dyspnea [ ]d) Comorbidities (e.g. chronic heart failure, atrial fibrillation with rapid response, pneumonia) [ ]e) Malnutrition The original [facility] content created by [facility] has been revised. The portions of the content which have been revised are identified through the use of italic text or in bold, and [facility] has neither reviewed nor approved the modified material. All other unmodified content is copyright [facility]. Please see references footnoted in the original [facility] edition 2016 Admission Criteria Met: Yes
[2016-10-13 09:09] LABS: Basophils % (Manual) 0 % (0.0-1.8); Blastocytes % (Manual) 0 %; Eosinophils % (Manual) 0 % (0.0-4.3); Total Cells Counted Percent 0
[2016-10-13 09:10] LABS: Diff Status Complete; RBC Morphology Normal
[2016-10-13] MEDS ORDERED: LIDODERM 5% TD SCH (10:00)
[2016-10-13] MEDS: LOVENOX SUB-Q SCH ×2 (10:48→11:21)
--- NOTE | 2016-10-13 15:35 | Discharge Summary ---
Providers - Providers Date of Admission: 10/12/16 23:21 Date of discharge: 10/13/16 Attending physician: DEEPTI GRANT Primary care physician: AMARJIT ABARCA MD Hospitalization Condition: Stable Hospital course: 61 YO Female with HTN, Acute on Chronic Respiratory Failure on 2L home oxygen, COPD presented to ED for evaluation of worsening breathing difficulty for past few days. Patient was admitted to the hospital and on iv steroid, nebulizer breathing treatment and iv antibiotics. She was discharged to inpatient hospice in stable condition. Discharge Diagnosis: Acute and chronic respiratory failure with hypoxia and hypercapnia * cont home O2 Acute COPD exacerbation * supplemental oxygen, nebulizer as needed, cont abx to complete course HTN (hypertension), benign * continue current therapy Interstitial lung disease * cont steroids Disposition: [facility]OS[facility] (MEDICAL FACILITY) Time spent for discharge: 32 minutes Core Measure Documentation - Palliative Care Palliative Care/ Comfort Measures: Hospice Care - Core Measures Any of the following diagnoses?: history only Exam - Constitutional Vitals: Temp Pulse Resp BP Pulse Ox 98.6 F 101 H 20 127/82 93 10/13/16 13:36 10/13/16 13:36 10/13/16 13:36 10/13/16 13:36 10/13/16 08:42 General appearance: Present: no acute distress, cachectic - EENT Eyes: Present: PERRL ENT: hearing intact, clear oral mucosa - Neck Neck: Present: supple, normal ROM - Respiratory Respiratory: bilateral: diminished - Cardiovascular Heart Sounds: Present: S1 & S2. Absent: rub, click - Extremities Extremities: pulses symmetrical, No edema Peripheral Pulses: within normal limits - Abdominal General gastrointestinal: Present: soft, non-tender, non-distended, normal bowel sounds Female genitourinary: Present: normal - Integumentary Integumentary: Present: clear, warm, dry - Musculoskeletal Musculoskeletal: gait normal, strength equal bilaterally - Psychiatric Psychiatric: appropriate mood/affect, intact judgment & insight - Neurologic Neurologic: CNII-XII intact, moves all extremities Plan Follow up with: PRIMARY CARE, [Primary Care Provider] - 3-5 Days
[2016-10-13 20:32] VITALS: BP 121/69
[2016-10-13] MEDS ORDERED: ZITHROMAX 500 MG in NACL 0.9% 250ML 250 ML IV SCH (23:30)
== END 2016-10-13 20:00 | disposition hospice, inpatient (51) | DRG 189 ==
LOC: ED 21:31 → 4A 23:21
PROVIDERS: ADMIT Internal Medicine; ATTEND Internal Medicine
DX: J96.21 Acute and chronic respiratory failure with hypoxia (principal); J44.1 Chronic obstructive pulmonary disease with (acute) exacerbation; J84.9 Interstitial pulmonary disease, unspecified; Z60.2 Problems related to living alone; Z88.6 Allergy status to analgesic agent; J45.909 Unspecified asthma, uncomplicated; F41.9 Anxiety disorder, unspecified; Z98.51 Tubal ligation status; Z82.49 Family history of ischemic heart disease and other diseases of the circulatory system; I10 Essential (primary) hypertension; J96.22 Acute and chronic respiratory failure with hypercapnia; Z99.81 Dependence on supplemental oxygen
CPT/HCPCS: 36415; 71010; 80048; 80053; 80198; 82550; 82553; 82962; 84484; 85007; 85025; 93005; 93010; 94640; 94760; 96360; 96361; J0456; J1650; J2930; J7030; J7050

== ENCOUNTER 2016-12-25 22:22 | Emergency (ER) | payer MEDICAID ==
[2016-12-25] MEDS ORDERED: PROVENTIL IH ONE (22:26)
[2016-12-25 22:50] LABS: ISTAT Base Excess 5; ISTAT HCO3 30.4; ISTAT PCO2 52.1 (35-45); ISTAT PH 7.375 (7.35-7.45); ISTAT PO2 105 (80-105); ISTAT SO2 98; ISTAT TCO2 32
[2016-12-25 22:56] LABS: Basophils % (Auto) 0.8 % (0.0-1.8); Eosinophils % (Auto) 2.9 % (0.0-4.3); Hematocrit 41.3 % (30.3-42.9); Hemoglobin 13.2 gm/dl (10.1-14.3); Mean Corpuscular HGB Conc 32 % (30-34); Mean Corpuscular Hemoglobin 30 pg (28-32); Mean Corpuscular Volume 94 fl (79-97); Platelet Count 286 K/mm3 (140-440); Red Blood Count 4.42 M/mm3 (3.65-5.03); Red Cell Distribution Width 14.9 % (13.2-15.2); White Blood Count 12.5 K/mm3 (4.5-11.0)
--- NOTE | 2016-12-25 23:03 | Emergency Department Report ---
ED Shortness of Breath HPI - General Chief Complaint: Dyspnea/Respdistress Stated Complaint: ADRIAN Time Seen by Provider: 12/25/16 22:26 Source: patient, EMS Mode of arrival: Stretcher Limitations: Physical Limitation - History of Present Illness Initial Comments: 61-year-old female presents to the emergency department complaining of difficulty breathing. Patient states that 1 day ago, she began having abdominal pain and low back pain. Patient states these are 2 separate pains. The abdominal pain is located in the epigastric region. It does not radiate. She describes the pain as sharp in nature. Her back pain is located in the right lower back. This pain is described as aching. It also does not radiate. Patient began having difficulty breathing earlier this morning. She reports cough productive of white sputum. There has been no fever. Patient denies chest pain. She states she has been using her breathing treatments without relief. EMS states that the patient had a room air saturation of 84% on their arrival. She was administered 2.5 mg of albuterol, 125 mg of Solu-Medrol, and 2 g of magnesium prior to arrival. There are no other complaints. MD Complaint: shortness of breath, cough -: Gradual, This morning Severity: mild Pain Scale: 4 Quality: sharp Consistency: constant Improves With: nothing Worsens With: nothing Known History Of: COPD Associated Symptoms: cough, sputum production, other (abdominal pain, back pain) Treatments Prior to Arrival: oxygen, bronchodilator, other (magnesium, steroids) - Related Data Home Oxygen Therapy: Yes Home Oxygen Amount: 3 Liters Home Medications Medication Instructions Recorded Confirmed Last Taken Benzonatate [Tessalon Perles] 100 mg PO Q8HR PRN 10/12/16 10/12/16 Unknown Budesoni/Formotero 160-4.5(Nf) 2 puff IH BID 10/12/16 10/12/16 Unknown [Symbicort 160-4.5 (Nf)] Docusate Sodium [Colace CAP] 100 mg PO DAILY 10/12/16 10/12/16 Unknown LORazepam [Ativan] 0.5 mg PO Q6H PRN 10/12/16 10/12/16 Unknown Promethazine /Codeine 5 ml PO Q6H PRN 10/12/16 10/12/16 Unknown [Phenergan/Codeine 6.25-10 mg/5 ml] Rosuvastatin Calcium 20 mg PO DAILY 10/12/16 10/12/16 Unknown Sennosides [Senna Lax] 8.6 mg PO BID 10/12/16 10/12/16 Unknown Theophylline Anhydrous ER [Theodur] 300 mg PO DAILY 10/12/16 10/12/16 Unknown amLODIPine [Norvasc] 5 mg PO DAILY 10/12/16 10/12/16 Unknown predniSONE [Deltasone] 5 mg PO DAILY 10/12/16 10/12/16 Unknown Previous Rx's Medication Instructions Recorded Last Taken Type Albuterol Sulfate [Ventolin HFA] 2 puff IH Q4H PRN #90 pump 07/04/16 Unknown Rx Famotidine [Pepcid] 20 mg PO QDAY #30 tablet 07/04/16 Unknown Rx Levofloxacin [Levaquin TAB] 500 mg PO QDAY #7 tablet 12/26/16 Unknown Rx predniSONE [Deltasone] 50 mg PO QDAY #5 tab 12/26/16 Unknown Rx Allergies Allergy/AdvReac Type Severity Reaction Status Date / Time aspirin AdvReac Unknown Verified 10/12/16 21:44 ED Review of Systems ROS: Stated complaint: ADRIAN Other details as noted in HPI Comment: All other systems reviewed and negative Respiratory: cough, shortness of breath, wheezing Gastrointestinal: abdominal pain Musculoskeletal: back pain ED Past Medical Hx - Past Medical History Previous Medical History?: Yes Hx Hypertension: Yes Hx Congestive Heart Failure: No Hx Diabetes: No Hx Asthma: Yes (unknown) Hx COPD: Yes Hx HIV: (unknown) Additional medical history: anxiety. Denies previous intubation - Surgical History Past Surgical History?: Yes Additional Surgical History: Ovary surgery - Family History Family history: no significant - Social History Smoking Status: Never Smoker Substance Use Type: None - Medications Home Medications: Home Medications Medication Instructions Recorded Confirmed Last Taken Type Albuterol Sulfate [Ventolin HFA] 2 puff IH Q4H PRN #90 pump 07/04/16 10/12/16 Unknown Rx Famotidine [Pepcid] 20 mg PO QDAY #30 tablet 07/04/16 10/12/16 Unknown Rx Benzonatate [Tessalon Perles] 100 mg PO Q8HR PRN 10/12/16 10/12/16 Unknown History Budesoni/Formotero 160-4.5(Nf) 2 puff IH BID 10/12/16 10/12/16 Unknown History [Symbicort 160-4.5 (Nf)] Docusate Sodium [Colace CAP] 100 mg PO DAILY 10/12/16 10/12/16 Unknown History LORazepam [Ativan] 0.5 mg PO Q6H PRN 10/12/16 10/12/16 Unknown History Promethazine /Codeine 5 ml PO Q6H PRN 10/12/16 10/12/16 Unknown History [Phenergan/Codeine 6.25-10 mg/5 ml] Rosuvastatin Calcium 20 mg PO DAILY 10/12/16 10/12/16 Unknown History Sennosides [Senna Lax] 8.6 mg PO BID 10/12/16 10/12/16 Unknown History Theophylline Anhydrous ER [Theodur] 300 mg PO DAILY 10/12/16 10/12/16 Unknown History amLODIPine [Norvasc] 5 mg PO DAILY 10/12/16 10/12/16 Unknown History predniSONE [Deltasone] 5 mg PO DAILY 10/12/16 10/12/16 Unknown History Levofloxacin [Levaquin TAB] 500 mg PO QDAY #7 tablet 12/26/16 Unknown Rx predniSONE [Deltasone] 50 mg PO QDAY #5 tab 12/26/16 Unknown Rx ED Physical Exam - General Limitations: Physical Limitation General appearance: alert, in distress (mild respiratory distress) - Head Head exam: Present: atraumatic, normocephalic - Eye Eye exam: Present: normal appearance, PERRL, EOMI - ENT ENT exam: Present: normal exam, normal orophraynx, mucous membranes moist - Neck Neck exam: Present: normal inspection, full ROM. Absent: tenderness - Respiratory Respiratory exam: Present: respiratory distress (mild tachypnea), wheezes ( diffuse bilateral posterior inspiratory and expiratory) - Cardiovascular Cardiovascular Exam: Present: regular rate, normal rhythm, normal heart sounds - GI/Abdominal GI/Abdominal exam: Present: soft, normal bowel sounds. Absent: distended, tenderness - Extremities Exam Extremities exam: Present: normal inspection, full ROM. Absent: tenderness - Back Exam Back exam: Present: normal inspection, full ROM. Absent: tenderness - Neurological Exam Neurological exam: Present: alert, oriented X3. Absent: motor sensory deficit - Skin Skin exam: Present: warm, dry, intact ED Course Vital Signs 12/25/16 12/25/16 12/25/16 22:25 22:37 23:00 Pulse Rate 93 H Pulse Rate [ 91 H Anterior Bilateral Throughout] Respiratory 22 24 Rate Respiratory 26 H Rate [Anterior Bilateral Throughout] O2 Sat by Pulse 94 Oximetry 12/25/16 23:07 Pulse Rate Pulse Rate [ 93 H Anterior Bilateral Throughout] Respiratory Rate Respiratory 25 H Rate [Anterior Bilateral Throughout] O2 Sat by Pulse Oximetry ED Medical Decision Making - Lab Data Result diagrams: 12/25/16 22:42 12/25/16 22:42 - EKG Data -: EKG Interpreted by Me EKG shows normal: sinus rhythm, intervals, QRS complexes, ST-T waves Rate: normal - EKG Data When compared to previous EKG there are: no significant change Interpretation: unchanged when compared t (10/12/2016), other (right axis deviation) - Radiology Data Radiology results: image reviewed interpreted by me: Chest x-ray shows changes consistent with COPD. There is no infiltrate. - Medical Decision Making Lab and imaging results reviewed and discussed with the patient and family. Patient is sleeping quietly in the room at this time. There is no respiratory distress. On reexamination, the patient's lungs are clear to auscultation. Patient will be discharged home at this time on oral anti-biotics and steroids for a COPD exacerbation. - Differential Diagnosis COPD exacerbation, pneumonia, muscle strain, gastritis, pancreatitis Critical care attestation.: If time is entered above; I have spent that time in minutes in the direct care of this critically ill patient, excluding procedure time. ED Disposition Clinical Impression: COPD exacerbation Disposition: - TO HOME OR SELFCARE Is pt being admited?: No Condition: Stable Instructions: Chronic Obstructive Pulmonary Disease (ED) Prescriptions: Levofloxacin [Levaquin TAB] 500 mg PO QDAY #7 tablet predniSONE [Deltasone] 50 mg PO QDAY #5 tab Referrals: PRIMARY CARE, [Referring] - 3-5 Days Time of Disposition: 00:10
[2016-12-25 23:44] LABS: Alanine Aminotransferase 17 units/L (7-56); Albumin 3.7 g/dL (3.9-5); Albumin/Globulin Ratio 1.1 %; Alkaline Phosphatase 61 units/L (35-129); Anion Gap 15 mmol/L; BUN/Creatinine Ratio 22.85; Blood Urea Nitrogen 16 mg/dL (7-17); Carbon Dioxide 30 mmol/L (22-30); Chloride 102.2 mmol/L (98-107); Glucose 111 mg/dL (65-100); Lipase 24 units/L (13-60); Potassium 4.1 mmol/L (3.6-5.0); Sodium 143 mmol/L (137-145); Total Protein 7.1 g/dL (6.3-8.2)
[2016-12-26 00:25] VITALS: BP 116/84
--- NOTE | 2016-12-26 07:05 | XRay Report ---
Single view chest: Compared to 10/12/16. History: Dyspnea. Findings: Normal cardiomediastinal silhouette. Trachea is midline. Suspicion of mild COPD. No acute consolidation or pleural effusion. No significant interval change. Impression: No significant interval change.
== END 2016-12-26 02:03 | disposition home or self-care (01) ==
LOC: ED 22:22
DX: J44.1 Chronic obstructive pulmonary disease with (acute) exacerbation (principal); I10 Essential (primary) hypertension; J45.909 Unspecified asthma, uncomplicated; F41.9 Anxiety disorder, unspecified; Z98.890 Other specified postprocedural states; Z88.6 Allergy status to analgesic agent
CPT/HCPCS: 36415; 71010; 80053; 82803; 83690; 83735; 84484; 85025; 93005; 93010; 94640

== ENCOUNTER 2017-01-19 21:16 | Inpatient (IN) | payer MEDICAID ==
[2017-01-19 21:42] LABS: ISTAT Base Excess 4; ISTAT HCO3 30.5; ISTAT PCO2 62.7 (35-45); ISTAT PH 7.296 (7.35-7.45); ISTAT PO2 138 (80-105); ISTAT SO2 99; ISTAT TCO2 32
--- NOTE | 2017-01-19 21:50 | Emergency Department Report ---
HPI - General Chief Complaint: Dyspnea/Respdistress Time Seen by Provider: 01/19/17 21:21 - HPI HPI: This is a 61-year-old Afro-[place]ron[place] female presents to the emergency department by EMS from home with complaint of shortness of breath. The patient says that the shortness of breath occurred today but family says it is been getting progressively worse over the past week. She has a history of COPD and is on 3 L oxygen nasal cannula [id number]. She also has a past medical history of hypertension and anxiety. She denies any tobacco abuse currently. She received 5 mg albuterol nebulized treatment, 125 mg Solu-Medrol and 2 g of magnesium in route and was placed on a CPAP machine. She was a pulse ox of 83% on her nasal cannula when EMS arrived and went up to about 90% on the CPAP machine. Patient is currently part of the [facility]. ED Past Medical Hx - Past Medical History Hx Hypertension: Yes Hx Congestive Heart Failure: No Hx Diabetes: No Hx Asthma: Yes (unknown) Hx COPD: Yes Hx HIV: (unknown) Additional medical history: anxiety. Denies previous intubation - Surgical History Additional Surgical History: Ovary surgery - Social History Smoking Status: Unknown if ever smoked - Medications Home Medications: Home Medications Medication Instructions Recorded Confirmed Last Taken Type Albuterol Sulfate [Ventolin HFA] 2 puff IH Q4H PRN #90 pump 07/04/16 10/12/16 Rx Famotidine [Pepcid] 20 mg PO QDAY #30 tablet 07/04/16 10/12/16 01/19/17 Rx Benzonatate [Tessalon Perles] 100 mg PO Q8HR PRN 10/12/16 10/12/16 01/19/17 History Budesoni/Formotero 160-4.5(Nf) 2 puff IH BID 10/12/16 10/12/16 01/19/17 History [Symbicort 160-4.5 (Nf)] Docusate Sodium [Colace CAP] 100 mg PO DAILY 10/12/16 10/12/16 01/19/17 History LORazepam [Ativan] 0.5 mg PO Q6H PRN 10/12/16 10/12/16 01/19/17 History Sennosides [Senna Lax] 8.6 mg PO BID 10/12/16 10/12/16 01/19/17 History amLODIPine [Norvasc] 5 mg PO DAILY 10/12/16 10/12/16 01/19/17 History predniSONE [Deltasone] 5 mg PO DAILY 10/12/16 10/12/16 01/19/17 History Levofloxacin [Levaquin TAB] 500 mg PO QDAY #7 tablet 12/26/16 01/19/17 Rx predniSONE [Deltasone] 50 mg PO QDAY #5 tab 12/26/16 01/19/17 Rx Acetaminophen [Tylenol Arthritis] 650 mg PO DAILY 01/19/17 01/19/17 01/19/17 History Amoxicillin 500 mg PO DAILY 01/19/17 01/19/17 01/19/17 History Calcium Carbonate [Calcium] 600 mg PO DAILY 01/19/17 01/19/17 01/19/17 History Om3/Dha/Epa/Cod Liver Oil/A/D3 1 each PO DAILY 01/19/17 01/19/17 01/19/17 History [Cod Liver Oil Softgel] Temazepam 15 mg PO DAILY 01/19/17 01/19/17 01/19/17 History ED Review of Systems ROS: Stated complaint: ADRIAN Other details as noted in HPI Comment: All other systems reviewed and negative Constitutional: denies: chills, fever Eyes: denies: eye pain, eye discharge, vision change ENT: denies: ear pain, throat pain Respiratory: cough, shortness of breath, wheezing Cardiovascular: denies: chest pain, palpitations Gastrointestinal: denies: abdominal pain, nausea, diarrhea Genitourinary: denies: urgency, dysuria, discharge Musculoskeletal: denies: back pain, joint swelling, arthralgia Skin: denies: rash, lesions Neurological: denies: headache, weakness, paresthesias Physical Exam - Physical Exam Vital Signs: Vital Signs 01/19/17 01/19/17 01/19/17 21:10 21:20 21:23 Temperature 98.5 F Pulse Rate 120 H 101 H 99 H Respiratory 25 H 19 33 H Rate Blood Pressure 86/59 121/79 Blood Pressure 121/79 [Right] O2 Sat by Pulse 88 96 94 Oximetry 01/19/17 21:30 Temperature Pulse Rate 94 H Respiratory 23 Rate Blood Pressure 88/61 Blood Pressure [Right] O2 Sat by Pulse 95 Oximetry Physical Exam: GENERAL: Patient is ill-appearing. HEENT: Normocephalic. Atraumatic. Extraocular motions are intact. Patient has moist mucous membranes. Pupils equal reactive to light bilaterally. NECK: Supple. Trachea is midline. CHEST/LUNGS: Decreased breath sounds throughout the chest. There is tachypnea and subclavicular accessory muscle use. Conversational dyspnea. There is respiratory distress noted. HEART/CARDIOVASCULAR: Regular. There is mild tachycardia. There is no gallop rub or murmur. ABDOMEN: Abdomen is soft, nontender. Patient has normal bowel sounds. There is no abdominal distention. SKIN: Skin is warm and dry. NEURO: The patient is awake, alert. The patient is cooperative. The patient has no focal neurologic deficits. MUSCULOSKELETAL: There is no tenderness or deformity. There is no limitation range of motion. There is no evidence of acute injury. ED Course Vital Signs 01/19/17 01/19/17 01/19/17 21:10 21:20 21:23 Temperature 98.5 F Pulse Rate 120 H 101 H 99 H Respiratory 25 H 19 33 H Rate Blood Pressure 86/59 121/79 Blood Pressure 121/79 [Right] O2 Sat by Pulse 88 96 94 Oximetry 01/19/17 21:30 Temperature Pulse Rate 94 H Respiratory 23 Rate Blood Pressure 88/61 Blood Pressure [Right] O2 Sat by Pulse 95 Oximetry - ABG Interpretation Ph: 7.296 PCO2: 62 PO2: 138 Bicarbonate: 30 Interpretation: respiratory acidosis ED Medical Decision Making - Lab Data Result diagrams: 01/19/17 21:21 01/19/17 21:21 - EKG Data -: EKG Interpreted by Me EKG shows normal: sinus rhythm, axis (Right axis deviation), intervals, QRS complexes, ST-T waves Rate: tachycardia (118 bpm) - EKG Data When compared to previous EKG there are: previous EKG unavailable Interpretation: other (sinus tachycardia, right axis deviation) - Radiology Data Radiology results: image reviewed interpreted by me: Chest x-ray shows hyperinflation of lungs and some signs of interstitial lung disease. Modest pneumonia. No pleural effusions. - Medical Decision Making 61-year-old female presents to the emergency department with some respiratory distress on a CPAP machine. She has a history of COPD and this appears to be a exacerbation. ABG show some acidosis and hypercapnia. The rest the patient's labs are mostly unremarkable. She was placed on BiPAP here. She had already gotten some albuterol, Solu-Medrol and magnesium. She had some transient hypotension that may be secondary to the mechanical ventilation and the magnesium but it responded to IV fluid resuscitation. While the patient was listed as hospice I spoke to the hospice nurse and the patient is a full code. She will be admitted to hospital for further evaluation and treatment and has been accepted for admission by the hospitalist, Dr. Valencia. - Differential Diagnosis COPD, pneumonia, PE, DE Critical Care Time: Yes Critical care time in (mins) excluding proc time.: 31 Critical care attestation.: If time is entered above; I have spent that time in minutes in the direct care of this critically ill patient, excluding procedure time. Critical care time spent on this patient and doing her initial evaluation, multiple re-evaluations , IV fluid resuscitation secondary to hypotension, ordering and evaluation of labs, ordering evaluation of imaging, discussion with the hospitalist. Critical Care Time: 31 mins ED Disposition Clinical Impression: COPD exacerbation, Respiratory distress Respiratory failure Qualifiers: Chronicity: acute on chronic Respiratory failure complication: hypoxia and hypercapnia Qualified Code(s): J96.21 - Acute and chronic respiratory failure with hypoxia; J96.22 - Acute and chronic respiratory failure with hypercapnia Hypotension Qualifiers: Hypotension type: unspecified hypotension type Qualified Code(s): I95.9 - Hypotension, unspecified Disposition: 09 OP ADMIT IP TO THIS HOSP Is pt being admited?: Yes Condition: Serious Instructions: Chronic Obstructive Pulmonary Disease (ED) Referrals: PRIMARY CARE, [Primary Care Provider] - 3-5 Days Time of Disposition: 23:25
[2017-01-19] MEDS ORDERED: NACL 0.9% 1000 ML 1,000 ML ONE (22:15)
[2017-01-19 22:17] LABS: Basophils % (Auto) 0.8 % (0.0-1.8); Eosinophils % (Auto) 2.8 % (0.0-4.3); Hemoglobin 14.1 gm/dl (10.1-14.3); Mean Corpuscular HGB Conc 33 % (30-34); Mean Corpuscular Hemoglobin 31 pg (28-32); Mean Corpuscular Volume 94 fl (79-97); Platelet Count 289 K/mm3 (140-440); Red Blood Count 4.57 M/mm3 (3.65-5.03); Red Cell Distribution Width 15.3 % (13.2-15.2); White Blood Count 15.4 K/mm3 (4.5-11.0)
[2017-01-19 22:28] LABS: INR 1.04 (0.87-1.13)
[2017-01-19 22:29] LABS: Partial Thromboplastin Time 35.7 Sec. (24.2-36.6)
[2017-01-19] MEDS ORDERED: NACL 0.9% 1000 ML 1,000 ML IV ONE ×2 (22:29→23:15)
[2017-01-19 22:37] LABS: Anion Gap 16 mmol/L; Blood Urea Nitrogen 15 mg/dL (7-17); Calcium 9.3 mg/dL (8.4-10.2); Carbon Dioxide 28 mmol/L (22-30); Glucose 135 mg/dL (65-100); Potassium 4.3 mmol/L (3.6-5.0); Sodium 136 mmol/L (137-145)
[2017-01-19 23:39] LABS: Urine Drugs of Abuse Note Disclamer
[2017-01-19 23:53] LABS: Bacteria,Urine 1+ /HPF (Negative); Bilirubin,Urine NEG (Negative); Blood,Urine NEG (Negative); Ketones,Urine NEG (Negative); Leukocyte Esterase,Urine NEG (Negative); Mucus,Urine FEW /HPF; Nitrite,Urine NEG (Negative); Protein,Urine <15 mg/dL mg/dL (Negative); Urobilinogen,Urine < 2.0 mg/dL (<2.0)
--- NOTE | 2017-01-19 23:55 | History and Physical Report ---
History of Present Illness Date of examination: 01/20/17 History of present illness: 61-year-old woman with a history of COPD, hypertension, anxiety comes emergency room complaining of shortness of breath started yesterday. She complains of cough productive of white phlegm. Her symptoms were not relieved with nebulizer treatments at home Patient denies chest pain, palpitation, abdominal pain, hematochezia, dysuria, frequency, focal weakness, dysarthria, fever chills, polydipsia polyuria, hot or cold intolerance, easy bruisability, or rash or bleeding from mucosal membrane, rhinorrhea, epistaxis, earache, tinnitus, blurry vision, eye discharge , anxiety, depression. Other review of systems negative PAST SURGICAL HISTORY: Tubal ligation SOCIAL HISTORY: Denies alcohol, tobacco, drugs FAMILY HISTORY: Hypertension Medications and Allergies Allergies Allergy/AdvReac Type Severity Reaction Status Date / Time aspirin AdvReac Unknown Verified 10/12/16 21:44 Home Medications Medication Instructions Recorded Confirmed Last Taken Type Albuterol Sulfate [Ventolin HFA] 2 puff IH Q4H PRN #90 pump 07/04/16 01/20/17 Unknown Rx Famotidine [Pepcid] 20 mg PO QDAY #30 tablet 07/04/16 01/20/17 Unknown Rx Benzonatate [Tessalon Perles] 100 mg PO Q8HR PRN 10/12/16 01/20/17 Unknown History Budesoni/Formotero 160-4.5(Nf) 2 puff IH BID 10/12/16 01/20/17 Unknown History [Symbicort 160-4.5 (Nf)] Docusate Sodium [Colace CAP] 100 mg PO DAILY 10/12/16 01/20/17 Unknown History LORazepam [Ativan] 0.5 mg PO Q6H PRN 10/12/16 01/20/17 Unknown History Sennosides [Senna Lax] 8.6 mg PO BID 10/12/16 01/20/17 Unknown History amLODIPine [Norvasc] 5 mg PO DAILY 10/12/16 01/20/17 Unknown History predniSONE [Deltasone] 5 mg PO DAILY 10/12/16 01/20/17 Unknown History Levofloxacin [Levaquin TAB] 500 mg PO QDAY #7 tablet 12/26/16 01/20/17 Unknown Rx predniSONE [Deltasone] 50 mg PO QDAY #5 tab 12/26/16 01/20/17 Unknown Rx Acetaminophen [Tylenol Arthritis] 650 mg PO DAILY 01/19/17 01/19/17 01/19/17 History Amoxicillin 500 mg PO DAILY 01/19/17 01/19/17 01/19/17 History Calcium Carbonate [Calcium] 600 mg PO DAILY 01/19/17 01/19/17 01/19/17 History Om3/Dha/Epa/Cod Liver Oil/A/D3 1 each PO DAILY 01/19/17 01/19/17 01/19/17 History [Cod Liver Oil Softgel] Temazepam 15 mg PO DAILY 01/19/17 01/19/17 01/19/17 History Active Meds: Active Medications Enoxaparin Sodium (Lovenox) 30 mg SUB-Q QDAY SHIVAM Sodium Chloride (Nacl 0.9% 1000 Ml) 1,000 mls @ 200 mls/hr IV BOLUS ONE Stop: 01/20/17 04:14 Last Admin: 01/19/17 23:16 Dose: 200 mls/hr Exam - Physical Exam Narrative exam: Gen. appearance: Patient lying in bed, no apparent distress BiPAP HEENT: Normocephalic, atraumatic, pupils equally round and reactive to light, extraocular movement intact, and no sclericterus,. No JVD or thyromegaly or nodule,neck supple, no carotid bruit ,mucous membranes moist, no exudate or erythema Heart: S1, S2, regular rate and rhythm Lungs: Wheezing bilaterally, breathing comfortable Abdomen: Positive bowel sounds, nontender, nondistended, no organomegaly Extremity: No edema, cyanosis, clubbing Skin: No rash, nodules, warm, dry Neuro: Oriented 3, cranial nerves II-12 intact, speech is fluent, motor and sensory intact - Constitutional Vitals: Temp Pulse Resp BP Pulse Ox 98.5 F 90 19 96/61 90 01/19/17 21:23 01/19/17 23:30 01/19/17 23:30 01/19/17 23:43 01/19/17 23:43 Results - Labs CBC & Chem 7: 01/19/17 21:21 01/19/17 21:21 Labs: Abnormal lab results 01/19/17 01/19/17 01/19/17 Range/Units 21:21 21:21 21:35 WBC 15.4 H (4.5-11.0) K/mm3 Hct 43.0 H (30.3-42.9) % RDW 15.3 H (13.2-15.2) % Lymph % (Auto) 8.1 L (13.4-35.0) % Seg Neutrophils % 83.3 H (40.0-70.0) % Seg Neutrophils # 12.8 H (1.8-7.7) K/mm3 POC ABG pH 7.296 L (7.35-7.45) POC ABG pCO2 62.7 H (35-45) POC ABG pO2 138 H (80-105) Sodium 136 L (137-145) mmol/L Chloride 96.0 L (98-107) mmol/L Creatinine 0.6 L (0.7-1.2) mg/dL Glucose 135 H (65-100) mg/dL Assessment and Plan Acute respiratory failure COPD exacerbation Hypertension Anxiety Admit to medicine Start high-dose IV steroids, nebulized treatments will continue BiPAP Check cardiac enzymes, continue appropriate outpatient medications, start prophylaxis
[2017-01-20 07:23] LABS: Creatine Kinase MB 5.3 ng/mL (0.0-4.0)
[2017-01-20 07:27] LABS: Creatine Kinase 150 units/L (30-135)
--- NOTE | 2017-01-20 08:06 | XRay Report ---
AP CHEST :01/19/17 21:16:00 CLINICAL: Dyspnea. COMPARISON:12/25/16 FINDINGS: Normal heart and pulmonary vasculature. The lungs are hyperexpanded and hyperlucent. No airspace disease or pleural effusion. No tubes or lines. The bones and soft tissues are normal. IMPRESSION: COPD and no acute change.
[2017-01-20] MEDS: DUONEB *Not for PRN Use IH SCH ×3 (08:47→21:07)
--- NOTE | 2017-01-20 10:16 | Admit Criteria Form ---
Admission Criteria Documentation: COPD Clinical Indications for Admission to Inpatient Care (Place 'X' for any and all applicable criteria): Admission is indicated for ANY ONE of the following (1)(2)(3): [X]I. Acute exacerbation by high-risk comorbidity (e.g., pneumonia, dysrhythmia, heart failure, pleural effusion, pneumothorax) or severe underlying COPD (e.g., steroid dependent) [X]II. Inpatient admission required rather than observation care (see Chronic Obstructive Pulmonary Disease: Observation Care) because of ANY ONE of the following: [ ]a) New or pre-existing signs or symptoms of COPD (eg, dyspnea or Tachypnea at rest or with minimal activity) that persist despite outpatient and observation care treatment [ ]b) New-onset hypoxemia (room air SaO2 less than 90%, PO2 less than 60 mm Hg (8.0 kPa)) that persists despite outpatient and observation care treatment [ ]c) Worsening of pre-existing hypoxemia (eg, new or increased requirement for supplemental oxygen to maintain oxygenation at baseline level) that persists despite outpatient and observation care treatment, with oxygen treatment needs performable only in acute inpatient setting [X]d) Hypercarbia (PCO2 greater than 40 mm Hg (5.3 kPa))-induced respiratory acidosis (pH less than 7.35) that persists despite outpatient and observation care treatment [ ]e) Supplemental oxygen or respiratory treatments for over 24 hours that are performable only in acute inpatient setting [ ]f) Chest tube placement with active evacuation (e.g., suction, drainage) (5) [ ]g) Other condition, treatment or monitoring requiring inpatient admission [ ]III. Planned invasive surgical or diagnostic procedures requiring acute- care hospitalization [ ]IV. Acute respiratory failure (e.g., uncompensated hypercarbia, severe hypoxemia) [ ]V. Severe comorbid condition (e.g., severe steroid myopathy, acute vertebral fracture) that has acutely worsened pulmonary function [ ]. Confusion state, lethargy, obtundation, stupor or coma Extended stay beyond goal length of stay may be needed for (31)(32): [ ]a ) Respiratory Failure. [ ]b) Severe or persisting hypoxemia or hypercarbia [ ]c) Severe or persistent dyspnea [ ]d) Comorbidities (e.g. chronic heart failure, atrial fibrillation with rapid response, pneumonia) [ ]e) Malnutrition The original [facility] content created by [facility] has been revised. The portions of the content which have been revised are identified through the use of italic text or in bold, and [facility] has neither reviewed nor approved the modified material. All other unmodified content is copyright [facility]. Please see references footnoted in the original [facility] edition 2016 Admission Criteria Met: Yes
[2017-01-20] MEDS: LOVENOX SUB-Q SCH (10:40)
[2017-01-20 11:16] LABS: Creatine Kinase MB 5.4 ng/mL (0.0-4.0)
[2017-01-20 11:17] LABS: Creatine Kinase 144 units/L (30-135)
--- NOTE | 2017-01-20 11:27 | Progress Note ---
Assessment and Plan Assessment and plan: Acute on chronic respiratory failure with hypoxia and hypercabia due to COPD exacerbation. On suplemental Oxygen, BIPAP. COPD exacerbation. Started on solu-medrol iv, Antibiotics, supplemental Oxygen. Pulm consulted. Hypertension. Resumed home meds, BP stable Anxiety DVT prophylaxis with Lovenox. Full code status History Interval history: Shortness of breath, Fever Hospitalist Physical - Physical exam Narrative exam: Gen Appearance: No acute distress, HEENT: normocephalic, atraumatic Neck: supple, no JVD Lungs: Decreased breath sounds bilaterally, bilateral rhonchi,wheezing Heart: S1 and S2 regular, no murmurs or gallop Abdomen: Soft non-tender, non-distended, normal bowel sounds Extremity: No edema, clubbing or cyanosis Neuro : Awake, alert, oriented, moves all extremities Psych:normal mood - Constitutional Vitals: Temp Pulse Resp BP Pulse Ox 98.1 F 101 H 20 112/69 97 01/20/17 08:29 01/20/17 08:56 01/20/17 08:56 01/20/17 08:29 01/20/17 08:58 - EENT Eyes: Present: exopthalmos Results - Labs CBC & Chem 7: 01/21/17 05:58 01/21/17 05:58 Labs: Laboratory Last Values WBC 15.4 K/mm3 (4.5-11.0) H 01/19/17 21:21 RBC 4.57 M/mm3 (3.65-5.03) 01/19/17 21:21 Hgb 14.1 gm/dl (10.1-14.3) 01/19/17 21:21 Hct 43.0 % (30.3-42.9) H 01/19/17 21:21 MCV 94 fl (79-97) 01/19/17 21:21 MCH 31 pg (28-32) 01/19/17 21:21 MCHC 33 % (30-34) 01/19/17 21:21 RDW 15.3 % (13.2-15.2) H 01/19/17 21:21 Plt Count 289 K/mm3 (140-440) 01/19/17 21:21 Lymph % (Auto) 8.1 % (13.4-35.0) L 01/19/17 21:21 [place] % (Auto) 5.0 % (0.0-7.3) 01/19/17 21:21 Eos % (Auto) 2.8 % (0.0-4.3) 01/19/17 21:21 Baso % (Auto) 0.8 % (0.0-1.8) 01/19/17 21:21 Lymph # 1.3 K/mm3 (1.2-5.4) 01/19/17 21:21 [place] # 0.8 K/mm3 (0.0-0.8) 01/19/17 21:21 Eos # 0.4 K/mm3 (0.0-0.4) 01/19/17 21:21 Baso # 0.1 K/mm3 (0.0-0.1) 01/19/17 21:21 Seg Neutrophils % 83.3 % (40.0-70.0) H 01/19/17 21:21 Seg Neutrophils # 12.8 K/mm3 (1.8-7.7) H 01/19/17 21:21 PT 13.5 Sec. (12.2-14.9) 01/19/17 21:21 INR 1.04 (0.87-1.13) 01/19/17 21:21 APTT 35.7 Sec. (24.2-36.6) 01/19/17 21:21 D-Dimer 222.45 ng/mlDDU (0-234) 01/19/17 21:21 POC ABG pH 7.296 (7.35-7.45) L 01/19/17 21:35 POC ABG pCO2 62.7 (35-45) H 01/19/17 21:35 POC ABG pO2 138 (80-105) H 01/19/17 21:35 POC ABG HCO3 30.5 01/19/17 21:35 POC ABG Total CO2 32 01/19/17 21:35 POC ABG O2 Sat 99 01/19/17 21:35 POC ABG Base Excess 4 01/19/17 21:35 FiO2 100 % 01/19/17 21:35 Sodium 136 mmol/L (137-145) L 01/19/17 21:21 Potassium 4.3 mmol/L (3.6-5.0) 01/19/17 21:21 Chloride 96.0 mmol/L (98-107) L 01/19/17 21:21 Carbon Dioxide 28 mmol/L (22-30) 01/19/17 21:21 Anion Gap 16 mmol/L 01/19/17 21:21 BUN 15 mg/dL (7-17) 01/19/17 21:21 Creatinine 0.6 mg/dL (0.7-1.2) L 01/19/17 21:21 Estimated GFR > 60 ml/min 01/19/17 21:21 BUN/Creatinine Ratio 25.00 % 01/19/17 21:21 Glucose 135 mg/dL (65-100) H 01/19/17 21:21 Calcium 9.3 mg/dL (8.4-10.2) 01/19/17 21:21 Total Creatine Kinase 144 units/L (30-135) H 01/20/17 10:31 CK-MB (CK-2) 5.4 ng/mL (0.0-4.0) H 01/20/17 10:31 CK-MB (CK-2) Rel Index 3.7 (0-4) 01/20/17 10:31 Troponin T < 0.010 ng/mL (0.00-0.029) 01/20/17 10:31 Urine Color Yellow (Yellow) 01/19/17 23:30 Urine Turbidity Clear (Clear) 01/19/17 23:30 Urine pH 5.0 (5.0-7.0) 01/19/17 23:30 Ur Specific Carbon 1.015 (1.003-1.030) 01/19/17 23:30 Urine Protein <15 mg/dl mg/dL (Negative) 01/19/17 23:30 Urine Glucose (UA) Neg mg/dL (Negative) 01/19/17 23:30 Urine Ketones Neg mg/dL (Negative) 01/19/17 23:30 Urine Blood Neg (Negative) 01/19/17 23:30 Urine Nitrite Neg (Negative) 01/19/17 23:30 Urine Bilirubin Neg (Negative) 01/19/17 23:30 Urine Urobilinogen < 2.0 mg/dL (<2.0) 01/19/17 23:30 Ur Leukocyte Esterase Neg (Negative) 01/19/17 23:30 Urine WBC (Auto) 2.0 /HPF (0.0-6.0) 01/19/17 23:30 Urine RBC (Auto) 2.0 /HPF (0.0-6.0) 01/19/17 23:30 U Epithel Cells (Auto) < 1.0 /HPF (0-13.0) 01/19/17 23:30 Urine Bacteria (Auto) 1+ /HPF (Negative) 01/19/17 23:30 Hyaline Casts 11 /LPF 01/19/17 23:30 Urine Mucus Few /HPF 01/19/17 23:30 Urine Opiates Screen Presumptive positive 01/19/17 23:30 Urine Methadone Screen Presumptive negative 01/19/17 23:30 Ur Barbiturates Screen Presumptive positive 01/19/17 23:30 Ur Phencyclidine Scrn Presumptive negative 01/19/17 23:30 Ur Amphetamines Screen Presumptive negative 01/19/17 23:30 U Benzodiazepines Scrn Presumptive negative 01/19/17 23:30 Urine Cocaine Screen Presumptive negative 01/19/17 23:30 U Marijuana (THC) Screen Presumptive negative 01/19/17 23:30 Drugs of Abuse Note Disclamer 01/19/17 23:30
[2017-01-20 11:54] LABS: ISTAT Base Excess 4; ISTAT HCO3 28.5; ISTAT PCO2 45.2 (35-45); ISTAT PH 7.408 (7.35-7.45); ISTAT PO2 57 (80-105); ISTAT SO2 89; ISTAT TCO2 30
[2017-01-20] MEDS ORDERED: PROVENTIL IH PRN (11:55)
[2017-01-20] MEDS ORDERED: ATIVAN PO PRN (11:55)
[2017-01-20] MEDS ORDERED: [UNRECOGNIZED DRUG - OTHER] PO SCH (12:00)
[2017-01-20] MEDS ORDERED: EPA PO SCH (12:00)
[2017-01-20] MEDS ORDERED: COD LIVER OIL PO SCH (12:00)
[2017-01-20] MEDS ORDERED: NON-FORMULARY (Budesoni/Formotero 160-4.5(Nf) 2 PUFF) IH SCH (12:00)
[2017-01-20] MEDS ORDERED: D3 PO SCH (12:00)
[2017-01-20] MEDS ORDERED: DHA PO SCH (12:00)
[2017-01-20] MEDS: COLACE PO SCH (15:30)
[2017-01-20] MEDS: NORVASC PO SCH (15:30)
[2017-01-20] MEDS: TESSALON PERLES PO PRN ×2 (15:30→21:42)
[2017-01-20] MEDS: PEPCID PO SCH (15:31)
[2017-01-20] MEDS: SENOKOT PO SCH ×2 (15:39→21:42)
[2017-01-20] MEDS: PULMICORT IH SCH ×2 (15:49→21:06)
[2017-01-20] MEDS: BROVANA NEBU IH SCH ×2 (15:49→21:05)
[2017-01-20] MEDS ORDERED: RESTORIL PO SCH (22:00)
--- NOTE | 2017-01-20 22:42 | Consultation ---
History of Present Illness Consult date: 01/20/17 Reason for consult: dyspnea, cough, COPD History of present illness: PULMONARY CONSULTATION. DR. Polanco THANK YOU FOR ASKING US TO PARTICIPATE IN THE CARE OF THIS PATIENT. THIS IS 69 YEAR OLD FEMALE HISTORY OF COPD ADMITTED FOR EXACERBATION OF COPD.pATIENT ALSO COMPLAINED COUGH WITH PRODUCTIVE GREEN SPUTUM.DENIES CHEST PAIN, FEVER, CHILLS OR HEMOPTYSIS. PATIENT SAYS SHE HAS ANXIETY ATTACK BEFORE COMING TO THE EMERGENCY ROOM.PATIENT HAS HISTORY OF HYPERTENSION. DENIES OTHER MEDICAL PROBLEMS.HISTORY OF SMOKING 1 PACK OF CIGARETTS A DAY X 30 YEARS. STOPPED SMOKING 3 YEARS AGO. DENIES ALCOHOL OR DRUG ABUSE. 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 Past History Past Medical History: COPD, hypertension Past Surgical History: Other (Tubal ligation) Social history: denies: smoking, alcohol abuse, prescription drug abuse Medications and Allergies Allergies Allergy/AdvReac Type Severity Reaction Status Date / Time aspirin AdvReac Unknown Verified 10/12/16 21:44 Home Medications Medication Instructions Recorded Confirmed Last Taken Type Albuterol Sulfate [Ventolin HFA] 2 puff IH Q4H PRN #90 pump 07/04/16 01/20/17 Unknown Rx Famotidine [Pepcid] 20 mg PO QDAY #30 tablet 07/04/16 01/20/17 Unknown Rx Benzonatate [Tessalon Perles] 100 mg PO Q8HR PRN 10/12/16 01/20/17 Unknown History Budesoni/Formotero 160-4.5(Nf) 2 puff IH BID 10/12/16 01/20/17 Unknown History [Symbicort 160-4.5 (Nf)] Docusate Sodium [Colace CAP] 100 mg PO DAILY 10/12/16 01/20/17 Unknown History LORazepam [Ativan] 0.5 mg PO Q6H PRN 10/12/16 01/20/17 Unknown History Sennosides [Senna Lax] 8.6 mg PO BID 10/12/16 01/20/17 Unknown History amLODIPine [Norvasc] 5 mg PO DAILY 10/12/16 01/20/17 Unknown History predniSONE [Deltasone] 5 mg PO DAILY 10/12/16 01/20/17 Unknown History Levofloxacin [Levaquin TAB] 500 mg PO QDAY #7 tablet 12/26/16 01/20/17 Unknown Rx predniSONE [Deltasone] 50 mg PO QDAY #5 tab 12/26/16 01/20/17 Unknown Rx Acetaminophen [Tylenol Arthritis] 650 mg PO DAILY 01/19/17 01/19/17 01/19/17 History Amoxicillin 500 mg PO DAILY 01/19/17 01/19/17 01/19/17 History Calcium Carbonate [Calcium] 600 mg PO DAILY 01/19/17 01/19/17 01/19/17 History Om3/Dha/Epa/Cod Liver Oil/A/D3 1 each PO DAILY 01/19/17 01/19/17 01/19/17 History [Cod Liver Oil Softgel] Temazepam 15 mg PO DAILY 01/19/17 01/19/17 01/19/17 History Active Meds: Active Medications Acetaminophen (Tylenol) 650 mg PO DAILY PENDING SALE TO [facility] Albuterol (Proventil) 2.5 mg IH Q4HRT PRN PRN Reason: Shortness Of Breath Albuterol/Ipratropium (Duoneb *Not For Prn Use*) 1 ampul IH Q6HRT PENDING SALE TO [facility] Last Admin: 01/20/17 21:07 Dose: 1 ampul Amlodipine Besylate (Norvasc) 5 mg PO DAILY PENDING SALE TO [facility] Last Admin: 01/20/17 15:30 Dose: 5 mg Arformoterol Tartrate (Brovana Nebu) 15 mcg IH Q12HRT PENDING SALE TO [facility] Last Admin: 01/20/17 21:05 Dose: 15 mcg Benzonatate (Tessalon Perles) 100 mg PO Q8HR PRN PRN Reason: Cough Last Admin: 01/20/17 21:42 Dose: 100 mg Budesonide (Pulmicort) 0.5 mg IH Q12HRT PENDING SALE TO [facility] Last Admin: 01/20/17 21:06 Dose: 0.5 mg Calcium Carbonate/Glycine (Oscal) 1,250 mg PO DAILY PENDING SALE TO [facility] Docusate Sodium (Colace) 100 mg PO DAILY PENDING SALE TO [facility] Last Admin: 01/20/17 15:30 Dose: 100 mg Enoxaparin Sodium (Lovenox) 40 mg SUB-Q QDAY PENDING SALE TO [facility] Last Admin: 01/20/17 10:40 Dose: 40 mg Famotidine (Pepcid) 20 mg PO QDAY PENDING SALE TO [facility] Last Admin: 01/20/17 15:31 Dose: 20 mg Lorazepam (Ativan) 0.5 mg PO Q6H PRN PRN Reason: Anxiety Methylprednisolone Sodium Succinate (Solu-Medrol) 125 mg IV Q6HR PENDING SALE TO [facility] Last Admin: 01/20/17 15:29 Dose: 125 mg Miscellaneous Medication (Om3/Dha/Epa/Cod Liver Oil/A/D3 [Cod Liver Oil Softgel] ) 1 each PO DAILY PENDING SALE TO [facility] Senna (Senokot) 8.6 mg PO BID PENDING SALE TO [facility] Last Admin: 01/20/17 21:42 Dose: 8.6 mg Temazepam (Restoril) 15 mg PO QHS PENDING SALE TO [facility] Last Admin: 01/20/17 21:42 Dose: 15 mg Review of Systems All systems: negative Respiratory: cough with sputum, shortness of breath, home oxygen Physical Examination Vital signs: Vital Signs Pulse Resp Pulse Ox 120 H 25 H 88 01/19/17 21:10 01/19/17 21:10 01/19/17 21:10 General appearance: no acute distress, alert Eyes: non-icteric ENT: oropharynx moist Neck: supple, no JVD Effort: mildly labored Ascultation: Bilateral: diminished breath sounds Cardiovascular: regular rate and rhythm Gastrointestinal: normoactive bowel sounds, soft, non-tender Integumentary: normal Extremities: no cyanosis, no edema Musculoskeletal: no deformities normal mental status, non-focal exam, pupils equal and round, CN II-XII normal anxious Results - Laboratory Findings CBC and BMP: 01/19/17 21:21 01/19/17 21:21 ABG POC ABG pH 7.408 (7.35-7.45) 01/20/17 11:33 POC ABG pCO2 45.2 (35-45) H 01/20/17 11:33 POC ABG pO2 57 (80-105) L 01/20/17 11:33 POC ABG HCO3 28.5 01/20/17 11:33 POC ABG Total CO2 30 01/20/17 11:33 POC ABG O2 Sat 89 01/20/17 11:33 PT/INR, D-dimer PT 13.5 Sec. (12.2-14.9) 01/19/17 21:21 INR 1.04 (0.87-1.13) 01/19/17 21:21 D-Dimer 222.45 ng/mlDDU (0-234) 01/19/17 21:21 Abnormal lab findings: Abnormal Labs 01/20/17 01/20/17 01/20/17 05:37 10:31 11:33 POC ABG pCO2 45.2 H POC ABG pO2 57 L Total Creatine Kinase 150 H 144 H CK-MB (CK-2) 5.3 H 5.4 H - Diagnostic Findings Chest x-ray: report reviewed (COPD. No acute change.), image reviewed Assessment and Plan THIS IS 69 YEAR OLD FEMALE HISTORY OF COPD ADMITTED FOR EXACERBATION OF COPD.pATIENT ALSO COMPLAINED COUGH WITH PRODUCTIVE GREEN SPUTUM.DENIES CHEST PAIN, FEVER, CHILLS OR HEMOPTYSIS. PATIENT SAYS SHE HAS ANXIETY ATTACK BEFORE COMING TO THE EMERGENCY ROOM.PATIENT HAS HISTORY OF HYPERTENSION. DENIES OTHER MEDICAL PROBLEMS.HISTORY OF SMOKING 1 PACK OF CIGARETTS A DAY X 30 YEARS. STOPPED SMOKING 3 YEARS AGO. DENIES ALCOHOL OR DRUG ABUSE. 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 - Patient Problems (1) Acute and chronic respiratory failure ([id number]) Current Visit: No Status: Acute Qualifiers: Respiratory failure complication: hypoxia and hypercapnia Qualified Code(s) : J96.21 - Acute and chronic respiratory failure with hypoxia; J96.22 - Acute and chronic respiratory failure with hypercapnia Plan to address problem: BIPAP 16/5, rate 16, FIO2 40% Albuterol/atrovent aerosol treatments q 6 hours prn for wheezing and shortness of breath. Brovanna/Budesonide aerosol treatments q 12 hours. Continue I/V solumedral. Continue S/C Lovenox. Continue famotadine. Sputum for gram stain and C&S. Augmentin 875 mg po bid. (2) COPD exacerbation Current Visit: Yes Status: Acute Plan to address problem: BIPAP 16/5, rate 16, FIO2 40% Albuterol/atrovent aerosol treatments q 6 hours prn for wheezing and shortness of breath. Brovanna/Budesonide aerosol treatments q 12 hours. Continue I/V solumedral. Continue S/C Lovenox. Continue famotadine. Sputum for gram stain and C&S. Augmentin 875 mg po bid. (3) Acute bronchitis Current Visit: No Status: Acute Qualifiers: Bronchitis organism: B Plan to address problem: Sputum for gramstain and C&S. Starting on Augmentin.
[2017-01-21] MEDS: DUONEB *Not for PRN Use IH SCH ×2 (02:23→09:50)
[2017-01-21 06:27] LABS: Hematocrit 36.6 % (30.3-42.9); Hemoglobin 11.8 gm/dl (10.1-14.3); Mean Corpuscular HGB Conc 32 % (30-34); Mean Corpuscular Hemoglobin 31 pg (28-32); Mean Corpuscular Volume 96 fl (79-97); Platelet Count 247 K/mm3 (140-440); Red Blood Count 3.83 M/mm3 (3.65-5.03); Red Cell Distribution Width 14.7 % (13.2-15.2); White Blood Count 15.8 K/mm3 (4.5-11.0)
[2017-01-21 06:45] LABS: Anion Gap 14 mmol/L; Blood Urea Nitrogen 22 mg/dL (7-17); Calcium 8.7 mg/dL (8.4-10.2); Carbon Dioxide 27 mmol/L (22-30); Chloride 103.1 mmol/L (98-107); Glucose 156 mg/dL (65-100); Potassium 4.4 mmol/L (3.6-5.0); Sodium 140 mmol/L (137-145)
[2017-01-21] MEDS: PULMICORT IH SCH (09:51)
[2017-01-21] MEDS: BROVANA NEBU IH SCH (09:51)
[2017-01-21] MEDS ORDERED: NON-FORMULARY (Acetaminophen [Tylenol Arthritis] 650 MG) PO SCH (10:00)
[2017-01-21] MEDS ORDERED: NON-FORMULARY (Calcium Carbonate [Calcium] 600 MG) PO SCH (10:00)
[2017-01-21] MEDS ORDERED: TYLENOL PO SCH (10:00)
[2017-01-21] MEDS ORDERED: AUGMENTIN 875 MG PO SCH (10:00)
[2017-01-21] MEDS ORDERED: OSCAL PO SCH (10:00)
--- NOTE | 2017-01-21 10:01 | Discharge Summary ---
Providers - Providers Date of Admission: 01/19/17 23:53 Date of discharge: 01/21/17 Attending physician: DESTINY APARICIO 01/20/17 08:42 Consult to Physician [CONS] Routine Consulting Provider: JUSTIN BARTLETT Reason For Exam: Resp failure, COPD exacerbation Place consult to:: Dr bartlett Notified:: office Phone number called:: [phone] Was contact made?: Yes If yes, spoke with:: Dr Bartlett Time called:: 10:21 Primary care physician: COP WINDER Hospitalization Condition: Fair Disposition: [id number] HOME UNDER HOME HLTH - Discharge Diagnoses (1) COPD exacerbation Status: Acute (2) Acute and chronic respiratory failure with hypercapnia Status: Acute (3) HTN (hypertension), benign Status: Chronic Core Measure Documentation - Palliative Care Palliative Care/ Comfort Measures: Not Applicable - Core Measures Any of the following diagnoses?: none Exam - Constitutional Vitals: Temp Pulse Resp BP Pulse Ox 98.6 F 97 H 15 131/72 96 01/21/17 08:00 01/21/17 09:51 01/21/17 09:51 01/21/17 08:00 01/21/17 09:52 Plan Activity: advance as tolerated Diet: low fat, low salt Additional Instructions: 1.Follow up with PCP in 1 week. 2.Follow up with [facility] in 1 week. 3.Continue home Oxygen at 3l/min Follow up with: PRIMARY CARE, [Primary Care Provider] - 3-5 Days Prescriptions: Prednisone [predniSONE 10 mg (6-Day Pack, 21 Tabs)] 10 mg PO .TAPER #1 tab.ds.pk
[2017-01-21] MEDS: SENOKOT PO SCH (10:04)
[2017-01-21] MEDS: LOVENOX SUB-Q SCH (10:05)
[2017-01-21] MEDS: NORVASC PO SCH (10:05)
[2017-01-21] MEDS: COLACE PO SCH (10:05)
[2017-01-21] MEDS: PEPCID PO SCH (10:05)
[2017-01-21 12:49] VITALS: BP 101/63
== END 2017-01-21 14:16 | disposition home health service (06) | DRG 189 ==
LOC: ED 21:16 → 4A 23:53
PROVIDERS: ADMIT Internal Medicine; ATTEND Internal Medicine
PROC: 4A033R1 Measurement of Arterial Saturation, Peripheral, Percutaneous Approach (ICD-10-PCS; 2017-01-19)
PROC: 5A09457 Assistance with Respiratory Ventilation, 24-96 Consecutive Hours, Continuous Positive Airway Pressure (ICD-10-PCS; principal; 2017-01-20)
DX: J96.22 Acute and chronic respiratory failure with hypercapnia (principal); J44.1 Chronic obstructive pulmonary disease with (acute) exacerbation; I10 Essential (primary) hypertension; F41.9 Anxiety disorder, unspecified; J44.0 Chronic obstructive pulmonary disease with (acute) lower respiratory infection; J20.9 Acute bronchitis, unspecified; I95.9 Hypotension, unspecified; Z82.49 Family history of ischemic heart disease and other diseases of the circulatory system; Z98.51 Tubal ligation status; Z88.6 Allergy status to analgesic agent; Z87.891 Personal history of nicotine dependence
CPT/HCPCS: 36415; 36600; 71010; 80048; 80307; 81001; 82550; 82553; 82803; 84484; 85025; 85027; 85379; 85610; 85730; 87040; 93005; 93010; 94640; 94660; 94760; 96360; 96361; J1650; J2930; J7030

== ENCOUNTER 2019-05-13 13:25 | Inpatient (IN) | payer MEDICAID ==
--- NOTE | 2019-05-13 14:42 | Emergency Department Report ---
ED Shortness of Breath HPI - General Chief Complaint: Dyspnea/Respdistress Stated Complaint: ADRIAN Time Seen by Provider: 05/13/19 14:37 Source: patient, EMS Mode of arrival: Stretcher Limitations: No Limitations - History of Present Illness Initial Comments: Patient is a 64-year-old female that presents emergency room with complaints of shortness of breath and difficulty breathing. Patient brought in by EMS. Patient states her shortness of breath is better. Patient states she has a history of COPD, CHF, anxiety and hypertension. EMS report received. EMS states the patient was 72% on 2 L and patient was given Solu-Medrol and placed on BiPAP and her sats improved. MD Complaint: shortness of breath -: Sudden, days(s) Improves With: oxygen, rest, bronchodilators Worsens With: lying flat, exertion Known History Of: COPD, congestive heart failure Context: recent URI Associated Symptoms: cough, orhopnia Treatments Prior to Arrival: oxygen, other - Related Data Home Oxygen Therapy: Yes Home Oxygen Amount: 2 Liters Home Medications Medication Instructions Recorded Confirmed Last Taken Budesoni/Formotero 160-4.5(Nf) 2 puff IH BID MDD BID 10/12/16 04/22/17 03/07/17 [Symbicort 160-4.5 (Nf)] LORazepam [Ativan] 1 mg PO DAILY MDD 1 10/12/16 04/22/17 03/08/17 Temazepam 15 mg PO DAILY 01/19/17 04/22/17 01/19/17 Flomax 0.4 mg PO DAILY MDD 0.4 03/08/17 04/22/17 03/07/17 0.4 Previous Rx's Medication Instructions Recorded Last Taken Type amLODIPine 5 mg PO QDAY tablet 03/11/17 Unknown Rx Budesonide [Pulmicort Respules] 1 mg IH Q12HRT #30 nebu 04/26/17 Unknown Rx Famotidine 20 mg PO BID #60 tablet 04/26/17 Unknown Rx levoFLOXacin [Levaquin TAB] 750 mg PO DAILY #5 tablet 04/26/17 Unknown Rx predniSONE [Prednisone] 10 mg PO Q24H #10 tablet 04/26/17 Unknown Rx Allergies Allergy/AdvReac Type Severity Reaction Status Date / Time aspirin AdvReac Unknown Verified 10/12/16 21:44 ED Review of Systems ROS: Stated complaint: ADRIAN Other details as noted in HPI Constitutional: denies: chills, fever Eyes: denies: eye pain, eye discharge, vision change ENT: denies: ear pain, throat pain Respiratory: cough, shortness of breath, SOB with exertion, SOB at rest, wheezing Cardiovascular: denies: chest pain, palpitations Endocrine: no symptoms reported Gastrointestinal: denies: abdominal pain, nausea, diarrhea Genitourinary: denies: urgency, dysuria, discharge Musculoskeletal: denies: back pain, joint swelling, arthralgia Skin: denies: rash, lesions Neurological: denies: headache, weakness, paresthesias Psychiatric: anxiety. denies: depression Hematological/Lymphatic: denies: easy bleeding, easy bruising ED Past Medical Hx - Past Medical History Previous Medical History?: Yes Hx Hypertension: Yes (09/2014) Hx Heart Attack/AMI: Yes (02/2017) Hx Congestive Heart Failure: Yes Hx Diabetes: No Hx Arthritis: Yes Hx Asthma: Yes (unknown) Hx COPD: Yes Hx HIV: (unknown) Additional medical history: anxiety. Denies previous intubation - Surgical History Past Surgical History?: Yes Additional Surgical History: Ovary surgery - Family History Family history: no significant - Social History Smoking Status: Former Smoker Substance Use Type: None - Medications Home Medications: Home Medications Medication Instructions Recorded Confirmed Last Taken Type Budesoni/Formotero 160-4.5(Nf) 2 puff IH BID MDD BID 10/12/16 04/22/17 03/07/17 History [Symbicort 160-4.5 (Nf)] LORazepam [Ativan] 1 mg PO DAILY MDD 1 10/12/16 04/22/17 03/08/17 History Temazepam 15 mg PO DAILY 01/19/17 04/22/17 01/19/17 History Flomax 0.4 mg PO DAILY MDD 0.4 03/08/17 04/22/17 03/07/17 History 0.4 amLODIPine 5 mg PO QDAY tablet 03/11/17 04/22/17 Unknown Rx Budesonide [Pulmicort Respules] 1 mg IH Q12HRT #30 nebu 04/26/17 Unknown Rx Famotidine 20 mg PO BID #60 tablet 04/26/17 Unknown Rx levoFLOXacin [Levaquin TAB] 750 mg PO DAILY #5 tablet 04/26/17 Unknown Rx predniSONE [Prednisone] 10 mg PO Q24H #10 tablet 04/26/17 Unknown Rx ED Physical Exam - General Limitations: No Limitations General appearance: alert, in distress - Head Head exam: Present: atraumatic, normocephalic - Eye Eye exam: Present: normal appearance - ENT ENT exam: Present: mucous membranes moist - Neck Neck exam: Present: normal inspection - Respiratory Respiratory exam: Present: respiratory distress, wheezes - Cardiovascular Cardiovascular Exam: Present: regular rate, normal rhythm. Absent: systolic murmur, diastolic murmur, rubs, gallop - GI/Abdominal GI/Abdominal exam: Present: soft, normal bowel sounds. Absent: distended, tenderness, guarding - Extremities Exam Extremities exam: Present: normal inspection - Back Exam Back exam: Present: normal inspection - Neurological Exam Neurological exam: Present: alert, oriented X3 - Psychiatric Psychiatric exam: Present: normal affect, normal mood - Skin Skin exam: Present: warm, dry, intact, normal color. Absent: rash ED Course Vital Signs 05/13/19 05/13/19 05/13/19 14:00 14:46 16:11 Temperature 97.8 F Pulse Rate 93 H 93 H Pulse Rate [ 93 H Anterior Bilateral Throughout] Pulse Rate [ 96 H Posterior Bilateral Throughout] Respiratory 28 H 24 Rate Respiratory 24 Rate [Anterior Bilateral Throughout] Respiratory 24 Rate [Posterior Bilateral Throughout] Blood Pressure 119/63 119/63 [Left] O2 Sat by Pulse 92 100 Oximetry 05/13/19 17:13 Temperature Pulse Rate Pulse Rate [ Anterior Bilateral Throughout] Pulse Rate [ Posterior Bilateral Throughout] Respiratory Rate Respiratory Rate [Anterior Bilateral Throughout] Respiratory Rate [Posterior Bilateral Throughout] Blood Pressure [Left] O2 Sat by Pulse 95 Oximetry - Reevaluation(s) Reevaluation #1: Initial valuation done. Patient is currently on a nonrebreather is 100%. We will slowly wean the oxygen. Patient is wheezing. Patient will be given magnesium and given a DuoNeb. Patient is are even given Medrol 125mg by EMS. 05/13/19 14:45 Reevaluation #2: Patient resting comfortably. Patient having decreased work to breathe. Patient will be admitted to the hospital service. I discussed all results with patient. 05/13/19 16:16 - Consultations Consultation #1: Hospitalist consult for admission. Hospitalist admit patient. 05/13/19 16:26 ED Medical Decision Making - Lab Data Result diagrams: 05/13/19 14:58 05/13/19 14:58 - EKG Data -: EKG Interpreted by Me EKG shows normal: sinus rhythm, axis, intervals, QRS complexes, ST-T waves Rate: normal - Radiology Data Radiology results: image reviewed interpreted by me: No acute findings on chest x-ray. - Medical Decision Making Patient is a 64-year-old female that presents emergency room with hypoxia and shortness of breath and difficulty in breathing. Patient brought in by EMS. EMS states the patient was initially 72% on 2 L. Patient given Solu-Medrol and placed on a nonrebreather and her saturation improved. Patient was placed on a Ventimask with immediate by air in the ER. Patient was also given a DuoNeb and a magnesium run. Patient's saturation improved. Patient admitted to the hospitalist service for further evaluation treatment of her COPD exacerbation. Patient had labs done in the ER and found to have an elevated troponin. - Differential Diagnosis COPD exacerbation. Shortness of breath. Difficulty breathing. Hypoxia. Critical Care Time: Yes Critical care time in (mins) excluding proc time.: 35 Critical care attestation.: If time is entered above; I have spent that time in minutes in the direct care of this critically ill patient, excluding procedure time. Critical Care Time: 35 minutes ED Disposition Clinical Impression: COPD exacerbation, Hypoxia, Hypokalemia, Respiratory distress, Interstitial lung disease, Anxiety, Elevated troponin I level Disposition: OP ADMIT IP TO THIS HOSP Is pt being admited?: Yes Does the pt Need Aspirin: No Condition: Critical Time of Disposition: 16:18
[2019-05-13] MEDS: IPRATROPIUM/ALBUTEROL SULFATE 3 ML AMPUL.NEB IH ONE ×3 (15:00→15:36)
[2019-05-13] MEDS ORDERED: MAGNESIUM SULFATE 2 GM/50 ML BAG IV ONE (15:15)
[2019-05-13 15:22] LABS: Hematocrit 33.7 % (30.3-42.9); Hemoglobin 10.3 gm/dl (10.1-14.3); Mean Corpuscular HGB Conc 31 % (30-34); Mean Corpuscular Volume 95 fl (79-97); Red Blood Count 3.56 M/mm3 (3.65-5.03); Red Cell Distribution Width 16.9 % (13.2-15.2)
[2019-05-13 15:23] LABS: Basophils % (Auto) 0.8 % (0.0-1.8); Eosinophils % (Auto) 4.3 % (0.0-4.3); Monocytes % (Auto) 2.8 % (0.0-7.3); Platelet Count 290 K/mm3 (140-440)
[2019-05-13 15:24] LABS: Basophils # (Auto) 0.1 K/mm3 (0.0-0.1); Eosinophils # (Auto) 0.3 K/mm3 (0.0-0.4); Lymphocytes # (Auto) 0.9 K/mm3 (1.2-5.4); Monocytes # (Auto) 0.2 K/mm3 (0.0-0.8)
[2019-05-13 15:27] LABS: Creatine Kinase MB 5.4 ng/mL (0.0-4.0)
[2019-05-13 15:31] LABS: Alanine Aminotransferase 7 units/L (7-56); BUN/Creatinine Ratio 15; Blood Urea Nitrogen 9 mg/dL (7-17); Calcium 8.9 mg/dL (8.4-10.2); Hemolysis Index 7
--- NOTE | 2019-05-13 16:00 | XRay Report ---
CHEST 1 VIEW INDICATION: Dyspnea. COMPARISON: 04/24/2017 FINDINGS: Support devices: None. Heart: Within normal limits. Lungs/Pleura: No acute air space or interstitial disease. Additional findings: None. IMPRESSION: No acute findings. Signer Name: Dexter Pak Jr, MD Signed: 05/13/2019 3:56 PM Workstation Name: [id number]
[2019-05-13 17:12] LABS: Chol/HDL Ratio 2.12 %; HDL Cholesterol 62 mg/dL (40-59); LDL Cholesterol,Direct 65 mg/dL (50-130)
[2019-05-13] MEDS ORDERED: HYDROmorphone 1 MG/1 ML INJ IV ONE (17:32)
--- NOTE | 2019-05-13 21:41 | History and Physical Report ---
History of Present Illness Date of examination: 05/13/19 Date of admission: 05/13/19 16:19 Chief complaint: SOB and wheezing for 1 day History of present illness: 64-year-old female that presents emergency room with complaints of shortness of breath and difficulty breathing. Patient brought in by EMS. Patient states her shortness of breath is better. Patient states she has a history of COPD, CHF, anxiety and hypertension.EMS states the patient was 72% on 2 L and patient was given Solu-Medrol and placed on BiPAP and her sats improved. Past Medical History Previous Medical History?: Yes Hypertension: Yes (09/2014) Heart Attack/AMI: Yes (02/2017) Congestive Heart Failure: Yes Arthritis: Yes Asthma: Yes (unknown) COPD: Yes Additional medical history: anxiety. Denies previous intubation Surgical History Past Surgical History?: Yes Additional Surgical History: Ovary surgery Family History Family history: no significant Social History Smoking Status: Former Smoker Substance Use Type: None - Medications Home Medications: Home Medications Medication Instructions Recorded Confirmed Last Taken Type Budesoni/Formotero 160-4.5(Nf) 2 puff IH BID MDD BID 10/12/16 04/22/17 03/07/17 History [Symbicort 160-4.5 (Nf)] LORazepam [Ativan] 1 mg PO DAILY MDD 1 10/12/16 04/22/17 03/08/17 History Temazepam 15 mg PO DAILY 01/19/17 04/22/17 01/19/17 History Flomax 0.4 mg PO DAILY MDD 0.4 03/08/17 04/22/17 03/07/17 History 0.4 amLODIPine 5 mg PO QDAY tablet 03/11/17 04/22/17 Unknown Rx Budesonide [Pulmicort Respules] 1 mg IH Q12HRT #30 nebu 04/26/17 Unknown Rx Famotidine 20 mg PO BID #60 tablet 04/26/17 Unknown Rx levoFLOXacin [Levaquin TAB] 750 mg PO DAILY #5 tablet 04/26/17 Unknown Rx predniSONE [Prednisone] 10 mg PO Q24H #10 tablet 04/26/17 Unknown Rx Review of Systems ROS: Stated complaint: ADRIAN Other details as noted in HPI Constitutional: denies: chills, fever Eyes: denies: eye pain, eye discharge, vision change ENT: denies: ear pain, throat pain Respiratory: cough, shortness of breath, SOB with exertion, SOB at rest, wheezing Cardiovascular: denies: chest pain, palpitations Endocrine: no symptoms reported Gastrointestinal: denies: abdominal pain, nausea, diarrhea Genitourinary: denies: urgency, dysuria, discharge Musculoskeletal: denies: back pain, joint swelling, arthralgia Skin: denies: rash, lesions Neurological: denies: headache, weakness, paresthesias Psychiatric: anxiety. denies: depression Hematological/Lymphatic: denies: easy bleeding, easy bruising Medications and Allergies Allergies Allergy/AdvReac Type Severity Reaction Status Date / Time aspirin AdvReac Unknown Verified 10/12/16 21:44 Home Medications Medication Instructions Recorded Confirmed Last Taken Type Budesoni/Formotero 160-4.5(Nf) 2 puff IH BID MDD BID 10/12/16 04/22/17 03/07/17 History [Symbicort 160-4.5 (Nf)] LORazepam [Ativan] 1 mg PO DAILY MDD 1 10/12/16 04/22/17 03/08/17 History Temazepam 15 mg PO DAILY 01/19/17 04/22/17 01/19/17 History Flomax 0.4 mg PO DAILY MDD 0.4 03/08/17 04/22/17 03/07/17 History 0.4 amLODIPine 5 mg PO QDAY tablet 03/11/17 04/22/17 Unknown Rx Budesonide [Pulmicort Respules] 1 mg IH Q12HRT #30 nebu 04/26/17 Unknown Rx Famotidine 20 mg PO BID #60 tablet 04/26/17 Unknown Rx levoFLOXacin [Levaquin TAB] 750 mg PO DAILY #5 tablet 04/26/17 Unknown Rx predniSONE [Prednisone] 10 mg PO Q24H #10 tablet 04/26/17 Unknown Rx Apixaban [Eliquis] 5 mg PO DAILY 05/14/19 05/14/19 Unknown History Exam - Constitutional Vitals: Temp Pulse Resp BP Pulse Ox 97.9 F 85 18 142/80 100 05/13/19 20:47 05/13/19 20:47 05/13/19 20:47 05/13/19 20:47 05/13/19 20:47 General appearance: Present: mild distress, well-nourished - EENT Eyes: Present: PERRL ENT: hearing intact, clear oral mucosa - Neck Neck: Present: supple, normal ROM - Respiratory Respiratory effort: normal Respiratory: bilateral: diminished, rhonchi, wheezing - Cardiovascular Heart rate: 78 Rhythm: regular Heart Sounds: Present: S1 & S2. Absent: rub, click - Extremities Extremities: no ischemia, pulses intact, pulses symmetrical, No edema Peripheral Pulses: within normal limits - Abdominal General gastrointestinal: Present: soft, non-tender, non-distended, normal bowel sounds Female genitourinary: Present: normal - Rectal Rectal Exam: deferred - Integumentary Integumentary: Present: clear, warm, dry - Musculoskeletal Musculoskeletal: gait normal, strength equal bilaterally - Psychiatric Psychiatric: appropriate mood/affect, intact judgment & insight - Neurologic Neurologic: CNII-XII intact, moves all extremities - Allied Health Allied health notes reviewed: nursing, case management Results - Labs CBC & Chem 7: 05/14/19 03:56 05/14/19 03:56 Labs: Laboratory Last Values WBC 7.8 K/mm3 (4.5-11.0) 05/13/19 14:58 RBC 3.56 M/mm3 (3.65-5.03) L 05/13/19 14:58 Hgb 10.3 gm/dl (10.1-14.3) 05/13/19 14:58 Hct 33.7 % (30.3-42.9) 05/13/19 14:58 MCV 95 fl (79-97) 05/13/19 14:58 MCH 29 pg (28-32) 05/13/19 14:58 MCHC 31 % (30-34) 05/13/19 14:58 RDW 16.9 % (13.2-15.2) H 05/13/19 14:58 Plt Count 290 K/mm3 (140-440) 05/13/19 14:58 Lymph % (Auto) 11.0 % (13.4-35.0) L 05/13/19 14:58 [place] % (Auto) 2.8 % (0.0-7.3) 05/13/19 14:58 Eos % (Auto) 4.3 % (0.0-4.3) 05/13/19 14:58 Baso % (Auto) 0.8 % (0.0-1.8) 05/13/19 14:58 Lymph # 0.9 K/mm3 (1.2-5.4) L 05/13/19 14:58 [place] # 0.2 K/mm3 (0.0-0.8) 05/13/19 14:58 Eos # 0.3 K/mm3 (0.0-0.4) 05/13/19 14:58 Baso # 0.1 K/mm3 (0.0-0.1) 05/13/19 14:58 Seg Neutrophils % 81.1 % (40.0-70.0) H 05/13/19 14:58 Seg Neutrophils # 6.3 K/mm3 (1.8-7.7) 05/13/19 14:58 Sodium 145 mmol/L (137-145) 05/13/19 14:58 Potassium 3.4 mmol/L (3.6-5.0) L 05/13/19 14:58 Chloride 106.7 mmol/L (98-107) 05/13/19 14:58 Carbon Dioxide 28 mmol/L (22-30) 05/13/19 14:58 Anion Gap 14 mmol/L 05/13/19 14:58 BUN 9 mg/dL (7-17) 05/13/19 14:58 Creatinine 0.6 mg/dL (0.7-1.2) L 05/13/19 14:58 Estimated GFR > 60 ml/min 05/13/19 14:58 BUN/Creatinine Ratio 15 % 05/13/19 14:58 Glucose 99 mg/dL (65-100) 05/13/19 14:58 Lactic Acid 0.90 mmol/L (0.7-2.0) 05/13/19 14:58 Calcium 8.9 mg/dL (8.4-10.2) 05/13/19 14:58 Total Bilirubin 0.60 mg/dL (0.1-1.2) 05/13/19 14:58 AST 20 units/L (5-40) 05/13/19 14:58 ALT 7 units/L (7-56) 05/13/19 14:58 Alkaline Phosphatase 57 units/L (35-129) 05/13/19 14:58 Total Creatine Kinase 272 units/L (30-135) H 05/13/19 14:58 CK-MB (CK-2) 5.4 ng/mL (0.0-4.0) H 05/13/19 14:58 CK-MB (CK-2) Rel Index 1.9 (0-4) 05/13/19 14:58 Troponin T 0.101 ng/mL (0.00-0.029) H* 05/13/19 14:58 Total Protein 6.8 g/dL (6.3-8.2) 05/13/19 14:58 Albumin 3.0 g/dL (3.9-5) L 05/13/19 14:58 Albumin/Globulin Ratio 0.8 % 05/13/19 14:58 Triglycerides 69 mg/dL (2-149) 05/13/19 14:58 Cholesterol 132 mg/dL (50-199) 05/13/19 14:58 LDL Cholesterol Direct 65 mg/dL (50-130) 05/13/19 14:58 HDL Cholesterol 62 mg/dL (40-59) H 05/13/19 14:58 Cholesterol/HDL Ratio 2.12 % 05/13/19 14:58 Short CBC 05/13/19 05/14/19 Range/Units 14:58 03:56 WBC 7.8 4.3 L (4.5-11.0) K/mm3 Hgb 10.3 10.9 (10.1-14.3) gm/dl Hct 33.7 34.8 (30.3-42.9) % Plt Count 290 243 (140-440) K/mm3 BMP 05/13/19 05/14/19 14:58 03:56 Sodium 145 143 Potassium 3.4 L 4.6 D Chloride 106.7 102.9 Carbon Dioxide 28 31 H BUN 9 12 Creatinine 0.6 L 0.6 L Glucose 99 149 H Calcium 8.9 9.2 Cardiac Enzymes 05/13/19 Range/Units 14:58 Total Creatine Kinase 272 H (30-135) units/L CK-MB (CK-2) 5.4 H (0.0-4.0) ng/mL Troponin T 0.101 H* (0.00-0.029) ng/mL Liver Function 05/13/19 05/14/19 Range/Units 14:58 03:56 Total Bilirubin 0.60 0.40 (0.1-1.2) mg/dL AST 20 19 (5-40) units/L ALT 7 9 (7-56) units/L Alkaline Phosphatase 57 60 (35-129) units/L Albumin 3.0 L 3.2 L (3.9-5) g/dL - Imaging and Cardiology EKG: report reviewed Chest x-ray: report reviewed (NAF) Assessment and Plan Advance Directives: Yes (Full code) VTE prophylaxis?: Chemical Plan of care discussed with patient/family: Yes - Patient Problems (1) Acute respiratory failure with hypoxia Current Visit: Yes Status: Acute Plan to address problem: IV Solumedrol IV abx Neb tx rtc and PRN Bipap and INtubation if necessary (2) COPD exacerbation Current Visit: Yes Status: Acute Plan to address problem: IV Solumedrol IV abx Neb tx rtc and PRN Bipap and INtubation if necessary (3) LORI (generalized anxiety disorder) Current Visit: Yes Status: Chronic Plan to address problem: Cont anxiolytics (4) OAB (overactive bladder) Current Visit: Yes Status: Chronic Plan to address problem: On Flomax (5) HTN (hypertension) Current Visit: No Status: Chronic Qualifiers: Hypertension type: essential hypertension Qualified Code(s): I10 - Essential (primary) hypertension Plan to address problem: Cont antihypertensives Monitor BP and adjust meds as necessary (6) DVT prophylaxis Current Visit: No Status: Acute Plan to address problem: On Lovenox and GI prophylaxis
[2019-05-13] MEDS ORDERED: oxyCODONE /ACETAMINOPHEN 5-325MG TAB PO PRN (21:42)
[2019-05-13] MEDS ORDERED: ONDANSETRON 4 MG/2 ML INJ IV PRN (21:42)
[2019-05-13] MEDS ORDERED: HYDROmorphone 1 MG/1 ML INJ IV PRN (21:42)
[2019-05-13] MEDS ORDERED: IPRATROPIUM/ALBUTEROL SULFATE 3 ML AMPUL.NEB IH PRN (21:47)
[2019-05-13] MEDS ORDERED: NON-FORMULARY EACH (Budesoni/Formotero 160-4.5(Nf) 2 PUFF) IH SCH (22:00)
[2019-05-13] MEDS ORDERED: ENOXAPARIN 40 MG/0.4 ML INJ SUB-Q SCH (22:00)
[2019-05-13] MEDS ORDERED: ALBUTEROL 2.5 MG/3 ML NEBU IH PRN (22:59)
[2019-05-13] MEDS: BUDESONIDE 0.5 MG/2 ML NEBU IH SCH (23:05)
[2019-05-13] MEDS: ARFORMOTEROL 15 MCG/2 ML NEBU IH SCH (23:05)
[2019-05-13] MEDS: methylPREDNISolone Sod Succinate 125 MG/2 ML INJ IV SCH (23:23)
[2019-05-13] MEDS: FAMOTIDINE 20 MG TAB PO SCH (23:29)
[2019-05-13] MEDS: amLODIPine 5 MG TAB PO SCH (23:30)
[2019-05-13] MEDS: LORazepam 0.5 MG TAB PO SCH (23:30)
[2019-05-14] MEDS: ACETAMINOPHEN 325 MG TAB PO PRN (03:56)
[2019-05-14 04:49] LABS: Basophils % (Auto) 0.6 % (0.0-1.8); Eosinophils % (Auto) 0.1 % (0.0-4.3); Hematocrit 34.8 % (30.3-42.9); Hemoglobin 10.9 gm/dl (10.1-14.3); Lymphocytes # (Auto) 0.6 K/mm3 (1.2-5.4); Lymphocytes % (Auto) 13.5 % (13.4-35.0); Mean Corpuscular HGB Conc 32 % (30-34); Mean Corpuscular Volume 92 fl (79-97); Monocytes # (Auto) 0.1 K/mm3 (0.0-0.8); Monocytes % (Auto) 1.7 % (0.0-7.3); Red Blood Count 3.79 M/mm3 (3.65-5.03)
[2019-05-14 05:02] LABS: Alanine Aminotransferase 9 units/L (7-56); Albumin 3.2 g/dL (3.9-5); BUN/Creatinine Ratio 20; Blood Urea Nitrogen 12 mg/dL (7-17); Calcium 9.2 mg/dL (8.4-10.2); Hemolysis Index 30
[2019-05-14] MEDS: methylPREDNISolone Sod Succinate 125 MG/2 ML INJ IV SCH ×3 (06:17→21:50)
[2019-05-14 06:35] LABS: Platelet Count 243 K/mm3 (140-440)
[2019-05-14] MEDS: BUDESONIDE 0.5 MG/2 ML NEBU IH SCH ×2 (07:51→21:40)
[2019-05-14] MEDS: IPRATROPIUM/ALBUTEROL SULFATE 3 ML AMPUL.NEB IH SCH ×4 (07:51→21:36)
[2019-05-14] MEDS: ARFORMOTEROL 15 MCG/2 ML NEBU IH SCH ×2 (07:51→21:40)
[2019-05-14] MEDS ORDERED: APIXABAN 5 MG TAB PO SCH (10:00)
[2019-05-14] MEDS ORDERED: NON-FORMULARY EACH (Flomax 0.4 MG) PO SCH (10:00)
[2019-05-14] MEDS: FAMOTIDINE 20 MG TAB PO SCH ×2 (10:15→21:50)
[2019-05-14] MEDS: TAMSULOSIN 0.4 MG CAP PO SCH (10:15)
[2019-05-14] MEDS: amLODIPine 5 MG TAB PO SCH (10:16)
[2019-05-14] MEDS: LORazepam 0.5 MG TAB PO SCH (10:37)
--- NOTE | 2019-05-14 12:47 | Progress Note ---
Assessment and Plan Assessment and plan: Patient is a 64 yo woman with a history of prior intubation due to COPD, CHF, hypertension, OA and anxiety who presents with SOB. She was found with a pulse ox of only 72% on 2 liters. She was given Solu-Medrol and placed on BiPAP. She is currently on [place] VM 50%. (1) Acute respiratory failure with hypoxia Current Visit: Yes Status: Acute Plan to address problem: IV Solumedrol IV abx Neb tx rtc and PRN Bipap and INtubation if necessary (2) COPD exacerbation Current Visit: Yes Status: Acute Plan to address problem: IV Solumedrol IV abx Neb tx rtc and PRN Bipap and INtubation if necessary (3) LORI (generalized anxiety disorder) Current Visit: Yes Status: Chronic Plan to address problem: Cont anxiolytics (4) OAB (overactive bladder) Current Visit: Yes Status: Chronic Plan to address problem: On Flomax (5) HTN (hypertension) Current Visit: No Status: Chronic Qualifiers: Hypertension type: essential hypertension Qualified Code(s): I10 - Es sential (primary) hypertension Plan to address problem: Cont antihypertensives Monitor BP and adjust meds as necessary (6) DVT prophylaxis Current Visit: No Status: Acute Plan to address problem: On Lovenox and GI prophylaxis History Interval history: Patient was seen and examined. Follow-up on current diagnosis of COPD. No overnight events reported to me. Patient denies any chest pain, shortness breath, nausea/vomiting or severe headaches. Imaging, nursing note, chart, labs and old chart reviewed. Discussed with patient. Hospitalist Physical - Physical exam Narrative exam: Gen: WDWN, ill appearing, NAD, Awake, Alert, Orientated HEENT: NCAT, EOMI, PERRL, OP Clear Neck: supple, no adenopathy, no thyromegaly, no JVD CVS/Heart: RRR, normal S1S2, pulses present bilaterally Chest/Lungs: diminished bs bilateral, Symmetrical chest expansion, good air entry bilaterally GI/Abdomen: soft, NTND, good bowel sounds, no guarding or rebound /Bladder: no suprapubic tenderness, no CVA or paraspinal tenderness Extermity/Skin: no c/c/e, no obvious rash MSK: FROM x 4 Neuro: CN 2-12 grossly intact, no new focal deficits Psych: calm - Constitutional Vitals: Temp Pulse Resp BP Pulse Ox 98.0 F 91 H 24 136/73 100 05/14/19 04:56 05/14/19 10:16 05/14/19 09:00 05/14/19 10:16 05/14/19 04:56 General appearance: Present: mild distress, well-nourished Results - Labs CBC & Chem 7: 05/14/19 03:56 05/14/19 03:56 Labs: Laboratory Last Values WBC 4.3 K/mm3 (4.5-11.0) L 05/14/19 03:56 RBC 3.79 M/mm3 (3.65-5.03) 05/14/19 03:56 Hgb 10.9 gm/dl (10.1-14.3) 05/14/19 03:56 Hct 34.8 % (30.3-42.9) 05/14/19 03:56 MCV 92 fl (79-97) 05/14/19 03:56 MCH 29 pg (28-32) 05/14/19 03:56 MCHC 32 % (30-34) 05/14/19 03:56 RDW 16.0 % (13.2-15.2) H 05/14/19 03:56 Plt Count 243 K/mm3 (140-440) 05/14/19 03:56 Lymph % (Auto) 13.5 % (13.4-35.0) 05/14/19 03:56 [place] % (Auto) 1.7 % (0.0-7.3) 05/14/19 03:56 Eos % (Auto) 0.1 % (0.0-4.3) 05/14/19 03:56 Baso % (Auto) 0.6 % (0.0-1.8) 05/14/19 03:56 Lymph # 0.6 K/mm3 (1.2-5.4) L 05/14/19 03:56 [place] # 0.1 K/mm3 (0.0-0.8) 05/14/19 03:56 Eos # 0.0 K/mm3 (0.0-0.4) 05/14/19 03:56 Baso # 0.0 K/mm3 (0.0-0.1) 05/14/19 03:56 Seg Neutrophils % 84.1 % (40.0-70.0) H 05/14/19 03:56 Seg Neutrophils # 3.6 K/mm3 (1.8-7.7) 05/14/19 03:56 Sodium 143 mmol/L (137-145) 05/14/19 03:56 Potassium 4.6 mmol/L (3.6-5.0) D 05/14/19 03:56 Chloride 102.9 mmol/L (98-107) 05/14/19 03:56 Carbon Dioxide 31 mmol/L (22-30) H 05/14/19 03:56 Anion Gap 14 mmol/L 05/14/19 03:56 BUN 12 mg/dL (7-17) 05/14/19 03:56 Creatinine 0.6 mg/dL (0.7-1.2) L 05/14/19 03:56 Estimated GFR > 60 ml/min 05/14/19 03:56 BUN/Creatinine Ratio 20 % 05/14/19 03:56 Glucose 149 mg/dL (65-100) H 05/14/19 03:56 Hemoglobin A1c 4.7 % (4-6) 05/13/19 14:58 Lactic Acid 0.90 mmol/L (0.7-2.0) 05/13/19 14:58 Calcium 9.2 mg/dL (8.4-10.2) 05/14/19 03:56 Total Bilirubin 0.40 mg/dL (0.1-1.2) 05/14/19 03:56 AST 19 units/L (5-40) 05/14/19 03:56 ALT 9 units/L (7-56) 05/14/19 03:56 Alkaline Phosphatase 60 units/L (35-129) 05/14/19 03:56 Total Creatine Kinase 272 units/L (30-135) H 05/13/19 14:58 CK-MB (CK-2) 5.4 ng/mL (0.0-4.0) H 05/13/19 14:58 CK-MB (CK-2) Rel Index 1.9 (0-4) 05/13/19 14:58 Troponin T 0.101 ng/mL (0.00-0.029) H* 05/13/19 14:58 Total Protein 7.2 g/dL (6.3-8.2) 05/14/19 03:56 Albumin 3.2 g/dL (3.9-5) L 05/14/19 03:56 Albumin/Globulin Ratio 0.8 % 05/14/19 03:56 Triglycerides 69 mg/dL (2-149) 05/13/19 14:58 Cholesterol 132 mg/dL (50-199) 05/13/19 14:58 LDL Cholesterol Direct 65 mg/dL (50-130) 05/13/19 14:58 HDL Cholesterol 62 mg/dL (40-59) H 05/13/19 14:58 Cholesterol/HDL Ratio 2.12 % 05/13/19 14:58 Active Medications - Current Medications Current Medications: Generic Name Dose Route Start Last Admin Trade Name Freq PRN Reason Stop Dose Admin Acetaminophen 650 mg 05/13/19 21:42 05/14/19 03:56 Tylenol PO 650 mg Q4H PRN Administration Pain MILD(1-3)/Fever >100.5/SKINNER Albuterol 2.5 mg 05/13/19 22:59 05/14/19 03:33 Proventil IH 2.5 mg Q3HRT PRN Administration Wheezing Albuterol/Ipratropium 1 ampul 05/14/19 08:00 05/14/19 07:51 Duoneb *Not For Prn Use* IH 1 ampul QIDRT SHIVAM Administration Amlodipine Besylate 5 mg 05/13/19 22:00 05/14/19 10:16 Amlodipine PO 5 mg QDAY SHIVAM Administration Apixaban 5 mg 05/14/19 22:00 Eliquis PO BID SHIVAM Protocol Arformoterol Tartrate 15 mcg 05/13/19 22:00 05/14/19 07:51 Brovana Nebu IH 15 mcg Q12HRT SHIVAM Administration Budesonide 1 mg 05/13/19 22:00 05/14/19 07:51 Pulmicort IH 0.5 mg Q12HRT SHIVAM Administration Famotidine 20 mg 05/13/19 22:00 05/14/19 10:15 Pepcid PO 20 mg BID SHIVAM Administration Hydromorphone HCl 0.5 mg 05/13/19 21:42 Dilaudid IV Q3H PRN Pain , Severe (7-10) Levofloxacin/Dextrose 750 mg in 150 mls @ 100 mls/hr 05/13/19 22:00 05/13/19 23:23 Levaquin 750mg/150ml IV 100 mls/hr Q24HR@2200 [facility] Administration Protocol Lorazepam 1 mg 05/13/19 22:00 05/14/19 10:37 Ativan PO Not Given DAILY [facility] Methylprednisolone Sodium Succinate 60 mg 05/13/19 22:00 05/14/19 06:17 Solu-Medrol IV 60 mg Q8HR SHIVAM Administration Ondansetron HCl 4 mg 05/13/19 21:42 Zofran IV Q8H PRN Nausea And Vomiting Oxycodone/Acetaminophen 1 tab 05/13/19 21:42 Percocet 5/325 PO Q6H PRN Pain, Moderate (4-6) Sodium Chloride 10 ml 05/13/19 22:00 05/14/19 10:16 Sodium Chloride Flush Syringe 10 Ml IV 10 ml BID SHIVAM Administration Sodium Chloride 10 ml 05/13/19 21:42 Sodium Chloride Flush Syringe 10 Ml IV PRN PRN LINE FLUSH Tamsulosin HCl 0.4 mg 05/14/19 10:00 05/14/19 10:15 Flomax PO 0.4 mg QDAY [facility] Administration Temazepam 15 mg 05/14/19 22:00 Restoril PO DAILY@2200 [facility]
--- NOTE | 2019-05-14 15:13 | Consultation ---
History of Present Illness Consult date: 05/14/19 Requesting physician: AUDELIA SHARP Reason for consult: COPD History of present illness: PCCM CONSULT NOTE (Full dictation # [id number]) Please see dictated notes for full details Medications and Allergies Allergies Allergy/AdvReac Type Severity Reaction Status Date / Time aspirin AdvReac Unknown Verified 10/12/16 21:44 Home Medications Medication Instructions Recorded Confirmed Last Taken Type Budesoni/Formotero 160-4.5(Nf) 2 puff IH BID MDD BID 10/12/16 04/22/17 03/07/17 History [Symbicort 160-4.5 (Nf)] LORazepam [Ativan] 1 mg PO DAILY MDD 1 10/12/16 04/22/17 03/08/17 History Temazepam 15 mg PO DAILY 01/19/17 04/22/17 01/19/17 History Flomax 0.4 mg PO DAILY MDD 0.4 03/08/17 04/22/17 03/07/17 History 0.4 amLODIPine 5 mg PO QDAY tablet 03/11/17 04/22/17 Unknown Rx Budesonide [Pulmicort Respules] 1 mg IH Q12HRT #30 nebu 04/26/17 Unknown Rx Famotidine 20 mg PO BID #60 tablet 04/26/17 Unknown Rx levoFLOXacin [Levaquin TAB] 750 mg PO DAILY #5 tablet 04/26/17 Unknown Rx predniSONE [Prednisone] 10 mg PO Q24H #10 tablet 04/26/17 Unknown Rx Apixaban [Eliquis] 5 mg PO DAILY 05/14/19 05/14/19 Unknown History Active Meds: Active Medications Acetaminophen (Tylenol) 650 mg PO Q4H PRN PRN Reason: Pain MILD(1-3)/Fever >100.5/SKINNER Last Admin: 05/14/19 03:56 Dose: 650 mg Documented by: Albuterol (Proventil) 2.5 mg IH Q3HRT PRN PRN Reason: Wheezing Last Admin: 05/14/19 03:33 Dose: 2.5 mg Documented by: Albuterol/Ipratropium (Duoneb *Not For Prn Use*) 1 ampul IH QIDRT SHIVAM Last Admin: 05/14/19 14:17 Dose: 1 ampul Documented by: Amlodipine Besylate (Amlodipine) 5 mg PO QDAY [facility] Last Admin: 05/14/19 10:16 Dose: 5 mg Documented by: Apixaban (Eliquis) 5 mg PO BID [facility]; Protocol Arformoterol Tartrate (Brovana Nebu) 15 mcg IH Q12HRT [facility] Last Admin: 05/14/19 07:51 Dose: 15 mcg Documented by: Budesonide (Pulmicort) 0.5 mg IH Q12HRT [facility] Famotidine (Pepcid) 20 mg PO BID [facility] Last Admin: 05/14/19 10:15 Dose: 20 mg Documented by: Hydromorphone HCl (Dilaudid) 0.5 mg IV Q3H PRN PRN Reason: Pain , Severe (7-10) Levofloxacin/Dextrose (Levaquin 750mg/150ml) 750 mg in 150 mls @ 100 mls/hr IV Q24HR@2200 [facility]; Protocol Last Admin: 05/13/19 23:23 Dose: 100 mls/hr Documented by: Lorazepam (Ativan) 1 mg PO DAILY [facility] Last Admin: 05/14/19 10:37 Dose: Not Given Documented by: Methylprednisolone Sodium Succinate (Solu-Medrol) 60 mg IV Q8HR [facility] Last Admin: 05/14/19 13:47 Dose: 60 mg Documented by: Ondansetron HCl (Zofran) 4 mg IV Q8H PRN PRN Reason: Nausea And Vomiting Oxycodone/Acetaminophen (Percocet 5/325) 1 tab PO Q6H PRN PRN Reason: Pain, Moderate (4-6) Sodium Chloride (Sodium Chloride Flush Syringe 10 Ml) 10 ml IV BID [facility] Last Admin: 05/14/19 10:16 Dose: 10 ml Documented by: Sodium Chloride (Sodium Chloride Flush Syringe 10 Ml) 10 ml IV PRN PRN PRN Reason: LINE FLUSH Tamsulosin HCl (Flomax) 0.4 mg PO QDAY [facility] Last Admin: 05/14/19 10:15 Dose: 0.4 mg Documented by: Temazepam (Restoril) 15 mg PO DAILY@2200 [facility] Physical Examination Vital signs: Vital Signs Temp Pulse Resp BP Pulse Ox 97.8 F 93 H 28 H 119/63 92 05/13/19 14:00 05/13/19 14:00 05/13/19 14:00 05/13/19 14:00 05/13/19 14:00 Results - Laboratory Findings CBC and BMP: 05/14/19 03:56 05/14/19 03:56 Abnormal lab findings: Abnormal Labs 05/13/19 05/13/19 05/14/19 14:58 14:58 03:56 WBC 4.3 L RBC 3.56 L RDW 16.9 H 16.0 H Lymph % (Auto) 11.0 L Lymph # 0.9 L 0.6 L Seg Neutrophils % 81.1 H 84.1 H Potassium 3.4 L Carbon Dioxide Creatinine 0.6 L Glucose Total Creatine Kinase 272 H CK-MB (CK-2) 5.4 H Troponin T 0.101 H* Albumin 3.0 L HDL Cholesterol 62 H 05/14/19 03:56 WBC RBC RDW Lymph % (Auto) Lymph # Seg Neutrophils % Potassium Carbon Dioxide 31 H Creatinine 0.6 L Glucose 149 H Total Creatine Kinase CK-MB (CK-2) Troponin T Albumin 3.2 L HDL Cholesterol
[2019-05-14 19:00] LABS: ABG Base Excess 11.7 mmol/L (-2.0-3.0); ABG HCO3 40.4 mmol/L (20.0-26.0); ABG Methemoglobin 0.6 % (0.0-1.5); ABG Oxygen Saturation 97.7 % (95.0-99.0); ABG PCO2 83.2 mm Hg; ABG PH 7.305 pH Units (7.350-7.450); ABG PO2 117.5 mm Hg (80.0-90.0)
[2019-05-14] MEDS: APIXABAN 5 MG TAB PO SCH (21:50)
[2019-05-14] MEDS: TEMAZEPAM 15 MG CAP PO SCH (22:09)
--- NOTE | 2019-05-15 03:01 | Consultation ---
PULMONARY CONSULT NOTE CONSULTING PHYSICIAN: Dr. Thibodeaux. REASON FOR CONSULTATION: Acute COPD exacerbation, acute hypoxemic respiratory failure. CHIEF COMPLAINT AND HISTORY OF PRESENT ILLNESS: The patient is a 64-year-old -[place] female with past medical according to the records included history of chronic obstructive lung disease as well as congestive heart failure, came into the Emergency Room complaining of shortness of breath, difficulty breathing, dyspnea on exertion. She was brought in by medical services. She was evaluated in the Emergency Room, she was found to be hypoxemic, O2 sats about 72%. She was placed on bilevel positive air pressure ventilation therapy, stabilized and transferred to the regular medical floor where I stopped by to see her. When I stopped by to see her, she was resting in bed and very poor historian. She seems to indicate she is on home oxygen therapy. She stated she was compliant with her medications, could not tell me the names of her medications. She denied any acute chest pains. She did complain of being cold. She denied any cough or expectoration. She denied any new onset leg pain or swelling either unilaterally or bilaterally or any suggestion of venous thromboembolic disease or DVTs. According to the records, she has a 30+ pack year tobacco smoking history. This really is as much of the history of presentation as I have. PAST MEDICAL HISTORY: History of hypertension, history of coronary artery disease, history of COPD, history of arthritis. PAST SURGICAL HISTORY: She has had ovarian surgery of some sort. MEDICATIONS: She was on at the time I stopped by to see her were reviewed. Pertinent medications included the following: She was on Tylenol 650 mg p.o. q. 4 hours p.r.n. mild pain or fevers, DuoNeb nebulizer treatments scheduled q.i.d., amlodipine 5 mg p.o. daily, Eliquis 5 mg p.o. b.i.d., Brovana 15 mcg nebulized q. 12 hours, Pulmicort 0.5 mg nebulized q. 12 hours, Pepcid 20 mg p.o. b.i.d., Dilaudid 0.5 mg IV q. 3 hours p.r.n. severe pain, Levaquin 750 mg IV daily, Ativan 1 mg p.o. daily scheduled, Solu-Medrol 60 mg IV q. 8 hours, Zofran 4 mg IV q. 8 hours p.r.n. nausea and vomiting, Percocet 5/325 one tablet p.o. q. 6 hours p.r.n. moderate pain, Flomax 0.4 mg p.o. daily and Restoril 50 mg p.o. at bedtime. ALLERGIES: ASPIRIN. Nature of this allergy is unknown. DIET: Thin lady. Denies acute weight loss or gain in the preceding few weeks to months. FAMILY AND SOCIAL HISTORY: She lives in the community. She has a 30+ pack year tobacco smoking history. She denied current tobacco use. She also denied alcohol or illicit drug use or abuse. FAMILY HISTORY: Otherwise, unknown. REVIEW OF SYSTEMS: Really difficult to obtain secondary to the patient's medical and mental condition. Since she has been in the hospital, no gross hematochezia or melena, no gross hematuria, no hematemesis. She denies hemoptysis. She denies palpitations, denies heat or cold intolerance. No polydipsia, no polyuria, no witnessed seizures. Review of systems otherwise unobtainable or as in the body of history above. PHYSICAL EXAMINATION: VITAL SIGNS: At presentation in the Emergency Room, she was afebrile, temperature 97.8 degrees Fahrenheit with a pulse of 93, respiratory rate of 28, blood pressure 119/63, O2 sats were 92%, inspired oxygen concentration at that time was not recorded. When I stopped by to see her, O2 sats were 98% that was on 50% Venturi mask. GENERAL: She is elderly looking, chronically ill-looking -[place] female, normocephalic, atraumatic, resting in bed with mildly increased respiratory effort at rest. HEAD, EYES, EARS, NOSE AND THROAT: She was anicteric, no conjunctival erythema. Oropharynx was dry. Mallampati #2 oropharynx. No gross jugular venous distention, no thyromegaly. NECK: Grossly, there were no palpable lymph nodes in the supraclavicular or submandibular lymph node chains. LUNGS: Auscultation of both lung wilson significant for diminished bilateral breath sounds, slightly prolonged expiratory phase. No active wheezing. HEART: Heart sounds 1 and 2 are heard. They were regular in rate and rhythm at time of my evaluation without any rubs or murmurs. ABDOMEN: Soft, flat. Bowel sounds are positive, nontender, no palpable hepatosplenomegaly. EXTREMITIES: Without overt digital clubbing, no cyanosis, no pedal edema. Pedal pulses were 2+ bilaterally. NEUROLOGIC: She has spontaneous movements to all extremities. She was a little bit somnolent. She complained of being cold. Pupils are equal, round, about 4 mm, reactive to light. Extraocular muscle movements were intact. No fasciculations, no spasticity. SKIN: Poor turgor. It was dry. No open rashes or sores that I could see. PSYCHIATRIC: Mood was depressed. Affect was flat. LABORATORY DATA: From my review are as follows: Admission white cell count of 7800, hemoglobin 10.3, hematocrit 33.7, platelet count was 290. No manual differential. Serum sodium was 145, potassium 3.4, chloride 107, bicarbonate 28, BUN was 9, creatinine 0.6, and glucose was 99. Liver function test within normal limits. CPK was up at 272. Troponin was up at 0.1. I do not have any microbiology studies for my review. A chest x-ray was done. I have reviewed the chest x-ray. It is consistent with hyperinflation, COPD, increased interstitial markings, flattening of the right hemidiaphragm, no focal infiltrates that I could see, compared with an x-ray from 04/24/2019 essentially about the same. ASSESSMENT: 1. Acute on chronic hypoxemic respiratory failure. 2. Acute chronic obstructive pulmonary disease exacerbation. 3. History of hypertension. 4. Coronary artery disease. 5. History of tobacco abuse. 6. Hypokalemia that has not been corrected. 7. Elevated serum troponins, non-ST elevation myocardial infarction. PLAN: I do agree with current treatments short and long-acting bronchodilators. I do agree with inhaled and systemic corticosteroids. I will continue at the current dose for now with a slow taper on the systemic corticosteroids. Empiric Levaquin monotherapy treatment for community-acquired pneumonia for 5 days of therapy will be appropriate. Analgesia should be continued according to the pain score while watching out for respiratory depression and possible hypercapnia. I will go ahead and get an arterial blood gas now in light of her somnolence to ensure that we are not dealing with CO2 narcosis. She is appropriately on GI prophylaxis. She is fully anticoagulated. Indication for this is unknown. The patient will benefit from a Cardiology evaluation for the non-ST elevation CO features, I will defer to the attending physician. Flu and pneumonia vaccination will be addressed per protocol. Thank you very much for the consult. We will follow along. We will make further recommendations as the picture progresses/becomes clearer. JOB# [id number] RAFAELA/NELSY GAUTAM
[2019-05-15] MEDS: methylPREDNISolone Sod Succinate 125 MG/2 ML INJ IV SCH ×3 (05:36→21:45)
[2019-05-15] MEDS: BUDESONIDE 0.5 MG/2 ML NEBU IH SCH ×3 (07:58→21:17)
[2019-05-15] MEDS: ARFORMOTEROL 15 MCG/2 ML NEBU IH SCH ×2 (07:58→20:48)
[2019-05-15] MEDS: IPRATROPIUM/ALBUTEROL SULFATE 3 ML AMPUL.NEB IH SCH ×4 (07:58→20:48)
[2019-05-15 09:00] LABS: Hematocrit 33.8 % (30.3-42.9); Hemoglobin 10.5 gm/dl (10.1-14.3); Mean Corpuscular HGB Conc 31 % (30-34); Mean Corpuscular Volume 91 fl (79-97); Platelet Count 357 K/mm3 (140-440); Red Cell Distribution Width 16.3 % (13.2-15.2)
[2019-05-15 09:23] LABS: BUN/Creatinine Ratio 26; Blood Urea Nitrogen 21 mg/dL (7-17); Calcium 9.5 mg/dL (8.4-10.2); Hemolysis Index 1
[2019-05-15] MEDS: APIXABAN 5 MG TAB PO SCH ×2 (10:17→21:45)
[2019-05-15] MEDS: FAMOTIDINE 20 MG TAB PO SCH ×2 (10:17→21:44)
[2019-05-15] MEDS: LORazepam 0.5 MG TAB PO SCH (10:17)
[2019-05-15] MEDS: amLODIPine 5 MG TAB PO SCH (10:17)
[2019-05-15] MEDS: TAMSULOSIN 0.4 MG CAP PO SCH (10:18)
--- NOTE | 2019-05-15 13:37 | Progress Note ---
Assessment and Plan Assessment and plan: Patient is a 64 yo woman with a history of prior intubation due to COPD, CHF, hypertension, OA and anxiety who presents with SOB. She was found with a pulse ox of only 72% on 2 liters. She was given Solu-Medrol and placed on BiPAP. Acute respiratory failure with hypoxia: try to wean off BIPAP IV Solumedrol, nebs, abx, pAfib: on Eliquis Acute COPD exacerbation: atreat with IV steroid, nebs, and abx Anxiety disorder: Cont anxiolytics OAB (overactive bladder) Off label use of Flomax HTN (hypertension): Monitor BP and adjust meds as necessary DVT prophylaxis: On Eliquis full code History Interval history: Patient was seen and examined. Follow-up on current diagnosis of COPD. No ov ernight events reported to me. Patient denies any chest pain, shortness breath, nausea/vomiting or severe headaches. Imaging, nursing note, chart, labs and old chart reviewed. Discussed with patient. Hospitalist Physical - Physical exam Narrative exam: Gen: WDWN, ill appearing, NAD, Awake, Alert, Orientated HEENT: NCAT, EOMI, PERRL, OP Clear Neck: supple, no adenopathy, no thyromegaly, no JVD CVS/Heart: RRR, normal S1S2, pulses present bilaterally Chest/Lungs: diminished bs bilateral, Symmetrical chest expansion, good air entry bilaterally GI/Abdomen: soft, NTND, good bowel sounds, no guarding or rebound /Bladder: no suprapubic tenderness, no CVA or paraspinal tenderness Extermity/Skin: no c/c/e, no obvious rash MSK: FROM x 4 Neuro: CN 2-12 grossly intact, no new focal deficits Psych: calm - Constitutional Vitals: Temp Pulse Resp BP Pulse Ox 98.3 F 99 H 20 118/78 92 05/15/19 07:43 05/15/19 10:17 05/15/19 09:00 05/15/19 10:17 05/15/19 10:00 General appearance: Present: mild distress, well-nourished Results - Labs CBC & Chem 7: 05/15/19 07:37 05/15/19 07:37 Labs: Laboratory Last Values WBC 8.5 K/mm3 (4.5-11.0) 05/15/19 07:37 RBC 3.70 M/mm3 (3.65-5.03) 05/15/19 07:37 Hgb 10.5 gm/dl (10.1-14.3) 05/15/19 07:37 Hct 33.8 % (30.3-42.9) 05/15/19 07:37 MCV 91 fl (79-97) 05/15/19 07:37 MCH 28 pg (28-32) 05/15/19 07:37 MCHC 31 % (30-34) 05/15/19 07:37 RDW 16.3 % (13.2-15.2) H 05/15/19 07:37 Plt Count 357 K/mm3 (140-440) 05/15/19 07:37 Lymph % (Auto) 13.5 % (13.4-35.0) 05/14/19 03:56 [place] % (Auto) 1.7 % (0.0-7.3) 05/14/19 03:56 Eos % (Auto) 0.1 % (0.0-4.3) 05/14/19 03:56 Baso % (Auto) 0.6 % (0.0-1.8) 05/14/19 03:56 Lymph # 0.6 K/mm3 (1.2-5.4) L 05/14/19 03:56 [place] # 0.1 K/mm3 (0.0-0.8) 05/14/19 03:56 Eos # 0.0 K/mm3 (0.0-0.4) 05/14/19 03:56 Baso # 0.0 K/mm3 (0.0-0.1) 05/14/19 03:56 Seg Neutrophils % 84.1 % (40.0-70.0) H 05/14/19 03:56 Seg Neutrophils # 3.6 K/mm3 (1.8-7.7) 05/14/19 03:56 ABG pH 7.305 pH Units (7.350-7.450) L 05/14/19 18:40 ABG pCO2 83.2 mm Hg 05/14/19 18:40 ABG pO2 117.5 mm Hg (80.0-90.0) H 05/14/19 18:40 ABG HCO3 40.4 mmol/L (20.0-26.0) H 05/14/19 18:40 ABG O2 Saturation 97.7 % (95.0-99.0) 05/14/19 18:40 ABG O2 Content 13.6 (0.0-44) 05/14/19 18:40 ABG Base Excess 11.7 mmol/L (-2.0-3.0) H 05/14/19 18:40 ABG Hemoglobin 9.9 gm/dl (12.0-16.0) L 05/14/19 18:40 ABG Carboxyhemoglobin 1.5 % (0.0-5.0) 05/14/19 18:40 ABG Methemoglobin 0.6 % (0.0-1.5) 05/14/19 18:40 Oxyhemoglobin 95.6 % (95.0-99.0) 05/14/19 18:40 FiO2 44 % 05/14/19 18:40 Sodium 145 mmol/L (137-145) 05/15/19 07:37 Potassium 4.4 mmol/L (3.6-5.0) 05/15/19 07:37 Chloride 102.3 mmol/L (98-107) 05/15/19 07:37 Carbon Dioxide 31 mmol/L (22-30) H 05/15/19 07:37 Anion Gap 16 mmol/L 05/15/19 07:37 BUN 21 mg/dL (7-17) H 05/15/19 07:37 Creatinine 0.8 mg/dL (0.7-1.2) 05/15/19 07:37 Estimated GFR > 60 ml/min 05/15/19 07:37 BUN/Creatinine Ratio 26 % 05/15/19 07:37 Glucose 102 mg/dL (65-100) H 05/15/19 07:37 Hemoglobin A1c 4.7 % (4-6) 05/13/19 14:58 Lactic Acid 0.90 mmol/L (0.7-2.0) 05/13/19 14:58 Calcium 9.5 mg/dL (8.4-10.2) 05/15/19 07:37 Total Bilirubin 0.40 mg/dL (0.1-1.2) 05/14/19 03:56 AST 19 units/L (5-40) 05/14/19 03:56 ALT 9 units/L (7-56) 05/14/19 03:56 Alkaline Phosphatase 60 units/L (35-129) 05/14/19 03:56 Total Creatine Kinase 272 units/L (30-135) H 05/13/19 14:58 CK-MB (CK-2) 5.4 ng/mL (0.0-4.0) H 05/13/19 14:58 CK-MB (CK-2) Rel Index 1.9 (0-4) 05/13/19 14:58 Troponin T 0.101 ng/mL (0.00-0.029) H* 05/13/19 14:58 Total Protein 7.2 g/dL (6.3-8.2) 05/14/19 03:56 Albumin 3.2 g/dL (3.9-5) L 05/14/19 03:56 Albumin/Globulin Ratio 0.8 % 05/14/19 03:56 Triglycerides 69 mg/dL (2-149) 05/13/19 14:58 Cholesterol 132 mg/dL (50-199) 05/13/19 14:58 LDL Cholesterol Direct 65 mg/dL (50-130) 05/13/19 14:58 HDL Cholesterol 62 mg/dL (40-59) H 05/13/19 14:58 Cholesterol/HDL Ratio 2.12 % 05/13/19 14:58 Active Medications - Current Medications Current Medications: Generic Name Dose Route Start Last Admin Trade Name Freq PRN Reason Stop Dose Admin Acetaminophen 650 mg 05/13/19 21:42 05/14/19 03:56 Tylenol PO 650 mg Q4H PRN Administration Pain MILD(1-3)/Fever >100.5/SKINNER Albuterol 2.5 mg 05/13/19 22:59 05/14/19 03:33 Proventil IH 2.5 mg Q3HRT PRN Administration Wheezing Albuterol/Ipratropium 1 ampul 05/14/19 08:00 05/15/19 07:58 Duoneb *Not For Prn Use* IH 1 ampul QIDRT SHIVAM Administration Amlodipine Besylate 5 mg 05/13/19 22:00 05/15/19 10:17 Amlodipine PO 5 mg QDAY SHIVAM Administration Apixaban 5 mg 05/14/19 22:00 05/15/19 10:17 Eliquis PO 5 mg BID SHIVAM Administration Protocol Arformoterol Tartrate 15 mcg 05/13/19 22:00 05/15/19 07:58 Brovana Nebu IH 15 mcg Q12HRT SHIVAM Administration Budesonide 0.5 mg 05/14/19 13:16 05/15/19 07:58 Pulmicort IH 0.5 mg Q12HRT SHIVAM Administration Famotidine 20 mg 05/13/19 22:00 05/15/19 10:17 Pepcid PO 20 mg BID SHIVAM Administration Hydromorphone HCl 0.5 mg 05/13/19 21:42 Dilaudid IV Q3H PRN Pain , Severe (7-10) Levofloxacin/Dextrose 750 mg in 150 mls @ 100 mls/hr 05/13/19 22:00 05/14/19 21:50 Levaquin 750mg/150ml IV 100 mls/hr Q24HR@2200 [facility] Administration Protocol Lorazepam 1 mg 05/13/19 22:00 05/15/19 10:17 Ativan PO 1 mg DAILY SHIVAM Administration Methylprednisolone Sodium Succinate 60 mg 05/13/19 22:00 05/15/19 13:00 Solu-Medrol IV 60 mg Q8HR SHIVAM Administration Ondansetron HCl 4 mg 05/13/19 21:42 Zofran IV Q8H PRN Nausea And Vomiting Oxycodone/Acetaminophen 1 tab 05/13/19 21:42 Percocet 5/325 PO Q6H PRN Pain, Moderate (4-6) Sodium Chloride 10 ml 05/13/19 22:00 05/15/19 10:18 Sodium Chloride Flush Syringe 10 Ml IV 10 ml BID SHIVAM Administration Sodium Chloride 10 ml 05/13/19 21:42 Sodium Chloride Flush Syringe 10 Ml IV PRN PRN LINE FLUSH Tamsulosin HCl 0.4 mg 05/14/19 10:00 05/15/19 10:18 Flomax PO 0.4 mg QDAY SHIVAM Administration Temazepam 15 mg 05/14/19 22:00 05/14/19 22:09 Restoril PO Not Given DAILY@2200 [facility]
--- NOTE | 2019-05-15 17:51 | Progress Note ---
Assessment and Plan Acute on chronic hypoxemic respiratory failure. Acute chronic obstructive pulmonary disease exacerbation. History of hypertension. Coronary artery disease. History of tobacco abuse. Hypokalemia that has not been corrected. Elevated serum troponins (NSTEMI) - continue supplemental oxygen as needed to keep O2 sat's > 90% - continue bronchodilators (CASSIDY & LABA) with pulmonary hygiene per RT - continue systemic steroids with slow taper - continue inhaled corticosteroids - complete empiric CAP directed antibiotics for severe COPD exacerbation - PT/OT as tolerated - mobility protocols for pressure ulcer prophylaxis - GI & VTE prophylaxis - tobacco abstinence strongly counseled at bedside - Flu & Pneumovax addressed per protocol - continue other care per attending / other underwriting consultant's ... re-evaluate in am & prn Subjective Date of service: 05/15/19 Principal diagnosis: Ac on Ch hypoxemic resp failure; AE-COPD; HTN; CAD; tobacco abuse Interval history: Patient is seen today for: Ac on Ch hypoxemic resp failure; AE-COPD; HTN; CAD; tobacco abuse; Elevated serum troponins (NSTEMI) Seen and examined at bedside; 24hour events reviewed; nursing and respiratory ca re staff consulted; no adverse overnight events reported to me; resting peacefully in bed; looks and feels so much better; denies acute chest pains or palpitations; No N/V/F/C; still weak and with EVANS; remains on supplemental oxygen Objective Vital Signs - 12hr 05/15/19 05/15/19 05/15/19 07:43 07:45 09:00 Temperature 98.3 F Pulse Rate 99 H Pulse Rate [ 98 H Posterior Bilateral Throughout] Respiratory 18 20 Rate Respiratory 18 Rate [Posterior Bilateral Throughout] Blood Pressure 118/78 O2 Sat by Pulse 92 Oximetry 05/15/19 05/15/19 05/15/19 10:00 10:17 11:00 Temperature Pulse Rate 99 H 97 H Pulse Rate [ Posterior Bilateral Throughout] Respiratory Rate Respiratory Rate [Posterior Bilateral Throughout] Blood Pressure 118/78 O2 Sat by Pulse 92 Oximetry 05/15/19 05/15/19 05/15/19 12:03 14:00 15:30 Temperature 99.0 F Pulse Rate 104 H 91 H Pulse Rate [ 91 H Posterior Bilateral Throughout] Respiratory 18 23 Rate Respiratory 18 Rate [Posterior Bilateral Throughout] Blood Pressure 132/75 O2 Sat by Pulse 89 95 Oximetry 05/15/19 05/15/19 15:40 17:47 Temperature 98.4 F Pulse Rate Pulse Rate [ Posterior Bilateral Throughout] Respiratory 18 Rate Respiratory Rate [Posterior Bilateral Throughout] Blood Pressure 150/79 O2 Sat by Pulse 95 Oximetry Constitutional: no acute distress, other (elderly looking thin AAF, normocephalic with mildly increased resp effort at rest) Eyes: non-icteric ENT: oropharynx moist, other (mallampati 2) Neck: supple, no lymphadenopathy, no JVD Effort: mildly labored Ascultation: Bilateral: diminished breath sounds, rhonchi, other (prolonged exp phase) Percussion: Bilateral: not dull Cardiovascular: regular rate and rhythm Gastrointestinal: normoactive bowel sounds, soft, non-tender, non-distended Integumentary: normal Extremities: no cyanosis, no edema, pulses normal, no ischemia or petechiae Neurologic: normal mental status, non-focal exam, pupils equal and round, CN II- XII normal Psychiatric: mood appropriate, affect normal CBC and BMP: 05/15/19 07:37 05/15/19 07:37 ABG, PT/INR, D-dimer: ABG ABG pH 7.305 pH Units (7.350-7.450) L 05/14/19 18:40 ABG pCO2 83.2 mm Hg 05/14/19 18:40 ABG pO2 117.5 mm Hg (80.0-90.0) H 05/14/19 18:40 ABG O2 Saturation 97.7 % (95.0-99.0) 05/14/19 18:40 Abnormal lab findings: Abnormal Labs 05/13/19 05/13/19 05/14/19 14:58 14:58 03:56 WBC 4.3 L RBC 3.56 L RDW 16.9 H 16.0 H Lymph % (Auto) 11.0 L Lymph # 0.9 L 0.6 L Seg Neutrophils % 81.1 H 84.1 H ABG pH ABG pO2 ABG HCO3 ABG Base Excess ABG Hemoglobin Potassium 3.4 L Carbon Dioxide BUN Creatinine 0.6 L Glucose Total Creatine Kinase 272 H CK-MB (CK-2) 5.4 H Troponin T 0.101 H* Albumin 3.0 L HDL Cholesterol 62 H 05/14/19 05/14/19 05/15/19 03:56 18:40 07:37 WBC RBC RDW 16.3 H Lymph % (Auto) Lymph # Seg Neutrophils % ABG pH 7.305 L ABG pO2 117.5 H ABG HCO3 40.4 H ABG Base Excess 11.7 H ABG Hemoglobin 9.9 L Potassium Carbon Dioxide 31 H BUN Creatinine 0.6 L Glucose 149 H Total Creatine Kinase CK-MB (CK-2) Troponin T Albumin 3.2 L HDL Cholesterol 05/15/19 07:37 WBC RBC RDW Lymph % (Auto) Lymph # Seg Neutrophils % ABG pH ABG pO2 ABG HCO3 ABG Base Excess ABG Hemoglobin Potassium Carbon Dioxide 31 H BUN 21 H Creatinine Glucose 102 H Total Creatine Kinase CK-MB (CK-2) Troponin T Albumin HDL Cholesterol Chest x-ray: image reviewed (COPD without acute infiltrate) Allied health notes reviewed: nursing
[2019-05-15] MEDS: ACETAMINOPHEN 325 MG TAB PO PRN (18:07)
[2019-05-15] MEDS: TEMAZEPAM 15 MG CAP PO SCH (21:45)
[2019-05-16] MEDS: IPRATROPIUM/ALBUTEROL SULFATE 3 ML AMPUL.NEB IH SCH ×4 (01:50→20:14)
[2019-05-16] MEDS: methylPREDNISolone Sod Succinate 125 MG/2 ML INJ IV SCH ×3 (05:47→21:36)
[2019-05-16] MEDS: ARFORMOTEROL 15 MCG/2 ML NEBU IH SCH ×2 (07:31→20:25)
[2019-05-16] MEDS: BUDESONIDE 0.5 MG/2 ML NEBU IH SCH ×2 (07:31→20:14)
[2019-05-16] MEDS: APIXABAN 5 MG TAB PO SCH ×2 (10:16→21:36)
[2019-05-16] MEDS: FAMOTIDINE 20 MG TAB PO SCH ×2 (10:21→21:36)
[2019-05-16] MEDS: amLODIPine 5 MG TAB PO SCH (10:21)
[2019-05-16] MEDS: TAMSULOSIN 0.4 MG CAP PO SCH (10:21)
[2019-05-16] MEDS: LORazepam 0.5 MG TAB PO SCH (10:21)
--- NOTE | 2019-05-16 13:17 | Progress Note ---
Assessment and Plan Assessment and plan: Patient is a 64 yo woman with a history of prior intubation due to COPD, CHF, hypertension, OA and anxiety who presents with SOB. She was found with a pulse ox of only 72% on 2 liters. She was given Solu-Medrol and placed on BiPAP. Acute respiratory failure with hypoxia: try to wean off BIPAP IV Solumedrol, nebs, abx, pAfib: on Eliquis Acute COPD exacerbation: treat with IV steroid, nebs, and abx Anxiety disorder: Cont anxiolytics OAB (overactive bladder) Off label use of Flomax HTN (hypertension): Monitor BP and adjust meds as necessary DVT prophylaxis: On Eliquis full code Disposition: continue inpatients, d/c once patient weaned off Bipap, stop this morning for breakfast History Interval history: Patient was seen and examined. Follow-up on current diagnosis of COPD. No ov ernight events reported to me. Patient denies any chest pain, shortness breath, nausea/vomiting or severe headaches. Imaging, nursing note, chart, labs and old chart reviewed. Discussed with patient. Hospitalist Physical - Physical exam Narrative exam: Gen: WDWN, ill appearing, NAD, Awake, Alert, Orientated x 3 HEENT: NCAT, EOMI, PERRL, OP Clear Neck: supple, no adenopathy, no thyromegaly, no JVD CVS/Heart: RRR, normal S1S2, pulses present bilaterally Chest/Lungs: diminished bs bilateral, Symmetrical chest expansion, good air entry bilaterally GI/Abdomen: soft, NTND, good bowel sounds, no guarding or rebound /Bladder: no suprapubic tenderness, no CVA or paraspinal tenderness Extermity/Skin: no c/c/e, no obvious rash MSK: FROM x 4 Neuro: CN 2-12 grossly intact, no new focal deficits Psych: calm - Constitutional Vitals: Temp Pulse Resp BP Pulse Ox 98.4 F 95 H 18 132/72 98 05/16/19 12:06 05/16/19 12:06 05/16/19 12:06 05/16/19 12:06 05/16/19 12:06 General appearance: Present: well-nourished Results - Labs CBC & Chem 7: 05/15/19 07:37 05/15/19 07:37 Labs: Laboratory Last Values WBC 8.5 K/mm3 (4.5-11.0) 05/15/19 07:37 RBC 3.70 M/mm3 (3.65-5.03) 05/15/19 07:37 Hgb 10.5 gm/dl (10.1-14.3) 05/15/19 07:37 Hct 33.8 % (30.3-42.9) 05/15/19 07:37 MCV 91 fl (79-97) 05/15/19 07:37 MCH 28 pg (28-32) 05/15/19 07:37 MCHC 31 % (30-34) 05/15/19 07:37 RDW 16.3 % (13.2-15.2) H 05/15/19 07:37 Plt Count 357 K/mm3 (140-440) 05/15/19 07:37 Lymph % (Auto) 13.5 % (13.4-35.0) 05/14/19 03:56 [place] % (Auto) 1.7 % (0.0-7.3) 05/14/19 03:56 Eos % (Auto) 0.1 % (0.0-4.3) 05/14/19 03:56 Baso % (Auto) 0.6 % (0.0-1.8) 05/14/19 03:56 Lymph # 0.6 K/mm3 (1.2-5.4) L 05/14/19 03:56 [place] # 0.1 K/mm3 (0.0-0.8) 05/14/19 03:56 Eos # 0.0 K/mm3 (0.0-0.4) 05/14/19 03:56 Baso # 0.0 K/mm3 (0.0-0.1) 05/14/19 03:56 Seg Neutrophils % 84.1 % (40.0-70.0) H 05/14/19 03:56 Seg Neutrophils # 3.6 K/mm3 (1.8-7.7) 05/14/19 03:56 ABG pH 7.305 pH Units (7.350-7.450) L 05/14/19 18:40 ABG pCO2 83.2 mm Hg 05/14/19 18:40 ABG pO2 117.5 mm Hg (80.0-90.0) H 05/14/19 18:40 ABG HCO3 40.4 mmol/L (20.0-26.0) H 05/14/19 18:40 ABG O2 Saturation 97.7 % (95.0-99.0) 05/14/19 18:40 ABG O2 Content 13.6 (0.0-44) 05/14/19 18:40 ABG Base Excess 11.7 mmol/L (-2.0-3.0) H 05/14/19 18:40 ABG Hemoglobin 9.9 gm/dl (12.0-16.0) L 05/14/19 18:40 ABG Carboxyhemoglobin 1.5 % (0.0-5.0) 05/14/19 18:40 ABG Methemoglobin 0.6 % (0.0-1.5) 05/14/19 18:40 Oxyhemoglobin 95.6 % (95.0-99.0) 05/14/19 18:40 FiO2 44 % 05/14/19 18:40 Sodium 145 mmol/L (137-145) 05/15/19 07:37 Potassium 4.4 mmol/L (3.6-5.0) 05/15/19 07:37 Chloride 102.3 mmol/L (98-107) 05/15/19 07:37 Carbon Dioxide 31 mmol/L (22-30) H 05/15/19 07:37 Anion Gap 16 mmol/L 05/15/19 07:37 BUN 21 mg/dL (7-17) H 05/15/19 07:37 Creatinine 0.8 mg/dL (0.7-1.2) 05/15/19 07:37 Estimated GFR > 60 ml/min 05/15/19 07:37 BUN/Creatinine Ratio 26 % 05/15/19 07:37 Glucose 102 mg/dL (65-100) H 05/15/19 07:37 Hemoglobin A1c 4.7 % (4-6) 05/13/19 14:58 Lactic Acid 0.90 mmol/L (0.7-2.0) 05/13/19 14:58 Calcium 9.5 mg/dL (8.4-10.2) 05/15/19 07:37 Total Bilirubin 0.40 mg/dL (0.1-1.2) 05/14/19 03:56 AST 19 units/L (5-40) 05/14/19 03:56 ALT 9 units/L (7-56) 05/14/19 03:56 Alkaline Phosphatase 60 units/L (35-129) 05/14/19 03:56 Total Creatine Kinase 272 units/L (30-135) H 05/13/19 14:58 CK-MB (CK-2) 5.4 ng/mL (0.0-4.0) H 05/13/19 14:58 CK-MB (CK-2) Rel Index 1.9 (0-4) 05/13/19 14:58 Troponin T 0.101 ng/mL (0.00-0.029) H* 05/13/19 14:58 Total Protein 7.2 g/dL (6.3-8.2) 05/14/19 03:56 Albumin 3.2 g/dL (3.9-5) L 05/14/19 03:56 Albumin/Globulin Ratio 0.8 % 05/14/19 03:56 Triglycerides 69 mg/dL (2-149) 05/13/19 14:58 Cholesterol 132 mg/dL (50-199) 05/13/19 14:58 LDL Cholesterol Direct 65 mg/dL (50-130) 05/13/19 14:58 HDL Cholesterol 62 mg/dL (40-59) H 05/13/19 14:58 Cholesterol/HDL Ratio 2.12 % 05/13/19 14:58 Active Medications - Current Medications Current Medications: Generic Name Dose Route Start Last Admin Trade Name Neto PRN Reason Stop Dose Admin Acetaminophen 650 mg 05/13/19 21:42 05/15/19 18:07 Tylenol PO 650 mg Q4H PRN Administration Pain MILD(1-3)/Fever >100.5/SKINNER Albuterol 2.5 mg 05/13/19 22:59 05/14/19 03:33 Proventil IH 2.5 mg Q3HRT PRN Administration Wheezing Albuterol/Ipratropium 1 ampul 05/15/19 20:00 05/16/19 07:31 Duoneb *Not For Prn Use* IH 1 ampul Q6HRT SHIVAM Administration Amlodipine Besylate 5 mg 05/13/19 22:00 05/16/19 10:21 Amlodipine PO 5 mg QDAY SHIVAM Administration Apixaban 5 mg 05/14/19 22:00 05/16/19 10:16 Eliquis PO 5 mg BID SHIVAM Administration Protocol Arformoterol Tartrate 15 mcg 05/13/19 22:00 05/16/19 07:31 Yenni Nebu IH 15 mcg Q12HRT SHIVAM Administration Budesonide 0.5 mg 05/14/19 13:16 05/16/19 07:31 Pulmicort IH 0.5 mg Q12HRT SHIVAM Administration Famotidine 20 mg 05/13/19 22:00 05/16/19 10:21 Pepcid PO 20 mg BID SHIVAM Administration Hydromorphone HCl 0.5 mg 05/13/19 21:42 Dilaudid IV Q3H PRN Pain , Severe (7-10) Levofloxacin/Dextrose 750 mg in 150 mls @ 100 mls/hr 05/13/19 22:00 05/15/19 21:44 Levaquin 750mg/150ml IV 05/17/19 23:29 100 mls/hr Q24HR@2200 [facility] Administration Protocol Lorazepam 1 mg 05/13/19 22:00 05/16/19 10:21 Ativan PO 1 mg DAILY SHIVAM Administration Methylprednisolone Sodium Succinate 60 mg 05/13/19 22:00 05/16/19 05:47 Solu-Medrol IV 60 mg Q8HR SHIVAM Administration Ondansetron HCl 4 mg 05/13/19 21:42 Zofran IV Q8H PRN Nausea And Vomiting Oxycodone/Acetaminophen 1 tab 05/13/19 21:42 05/15/19 21:45 Percocet 5/325 PO 1 tab Q6H PRN Administration Pain, Moderate (4-6) Sodium Chloride 10 ml 05/13/19 22:00 05/16/19 10:21 Sodium Chloride Flush Syringe 10 Ml IV 10 ml BID SHIVAM Administration Sodium Chloride 10 ml 05/13/19 21:42 Sodium Chloride Flush Syringe 10 Ml IV PRN PRN LINE FLUSH Tamsulosin HCl 0.4 mg 05/14/19 10:00 05/16/19 10:21 Flomax PO 0.4 mg QDAY SHIVAM Administration Temazepam 15 mg 05/14/19 22:00 05/15/19 21:45 Restoril PO 15 mg DAILY@2200 SHIVAM Administration
--- NOTE | 2019-05-16 18:36 | Progress Note ---
Assessment and Plan Patient sleeping on BIPAP. 15/8, rate 17,FIO@ 30%. O2 saturation 95%. Patient tolerating BIPAP good. Patient afebrile and no leukocytosis. - Patient Problems (1) Acute respiratory failure with hypoxia Current Visit: Yes Status: Acute Plan to address problem: BIPAP 15/8, rate 17, FIO2 30%. Albuterol/atrovent aerosol treatments q 6 hours. Continue I/V solumedrol. Patient is on Apixaban. Continue Pepcid. Continue levaquin. (2) COPD exacerbation Current Visit: Yes Status: Acute Plan to address problem: BIPAP 15/8, rate 17, FIO2 30%. Albuterol/atrovent aerosol treatments q 6 hours. Continue I/V solumedrol. Patient is on Apixaban. Continue Pepcid. Continue Levaquin. (3) Elevated troponin I level Current Visit: Yes Status: Acute Plan to address problem: Management as per primary care and cardiology. (4) Anxiety Current Visit: Yes Status: Acute Plan to address problem: Patient is on Ativan Subjective Date of service: 05/16/19 Principal diagnosis: Ac on Ch hypoxemic resp failure; AE-COPD; HTN; CAD; tobacco abuse Interval history: Patient sleeping on BIPAP. 15/8, rate 17,FIO@ 30%. O2 saturation 95%. Patient tolerating BIPAP good. Patient afebrile and no leukocytosis. Objective Vital Signs - 12hr 05/16/19 05/16/19 05/16/19 07:30 08:08 10:00 Temperature 97.9 F Pulse Rate 103 H 89 Pulse Rate [ 100 H Apical] Pulse Rate [ 96 H Posterior Bilateral Throughout] Respiratory 18 18 Rate Respiratory 18 Rate [Posterior Bilateral Throughout] Blood Pressure 146/90 O2 Sat by Pulse 98 100 Oximetry 05/16/19 05/16/19 05/16/19 10:21 12:06 13:30 Temperature 98.4 F Pulse Rate 103 H 95 H Pulse Rate [ Apical] Pulse Rate [ 93 H Posterior Bilateral Throughout] Respiratory 18 Rate Respiratory 18 Rate [Posterior Bilateral Throughout] Blood Pressure 132/72 O2 Sat by Pulse 98 Oximetry 05/16/19 05/16/19 13:31 16:18 Temperature 98.4 F Pulse Rate 92 H Pulse Rate [ Apical] Pulse Rate [ Posterior Bilateral Throughout] Respiratory 18 Rate Respiratory Rate [Posterior Bilateral Throughout] Blood Pressure 116/72 O2 Sat by Pulse 95 95 Oximetry Constitutional: no acute distress, asleep, other (Sleeping with BIPAP) Eyes: non-icteric ENT: oropharynx moist Neck: supple, no lymphadenopathy Effort: normal Ascultation: Bilateral: diminished breath sounds, other (Prolonged expiratory phase.) Cardiovascular: regular rate and rhythm Gastrointestinal: normoactive bowel sounds, soft Integumentary: normal Extremities: no cyanosis, no edema Neurologic: other (Patient sleeping at this time.) Psychiatric: other (Patient sleeping at this time.) CBC and BMP: 05/15/19 07:37 05/15/19 07:37 ABG, PT/INR, D-dimer: ABG ABG pH 7.305 pH Units (7.350-7.450) L 05/14/19 18:40 ABG pCO2 83.2 mm Hg 05/14/19 18:40 ABG pO2 117.5 mm Hg (80.0-90.0) H 05/14/19 18:40 ABG O2 Saturation 97.7 % (95.0-99.0) 05/14/19 18:40 Abnormal lab findings: Abnormal Labs 05/13/19 05/13/19 05/14/19 14:58 14:58 03:56 WBC 4.3 L RBC 3.56 L RDW 16.9 H 16.0 H Lymph % (Auto) 11.0 L Lymph # 0.9 L 0.6 L Seg Neutrophils % 81.1 H 84.1 H ABG pH ABG pO2 ABG HCO3 ABG Base Excess ABG Hemoglobin Potassium 3.4 L Carbon Dioxide BUN Creatinine 0.6 L Glucose Total Creatine Kinase 272 H CK-MB (CK-2) 5.4 H Troponin T 0.101 H* Albumin 3.0 L HDL Cholesterol 62 H 05/14/19 05/14/19 05/15/19 03:56 18:40 07:37 WBC RBC RDW 16.3 H Lymph % (Auto) Lymph # Seg Neutrophils % ABG pH 7.305 L ABG pO2 117.5 H ABG HCO3 40.4 H ABG Base Excess 11.7 H ABG Hemoglobin 9.9 L Potassium Carbon Dioxide 31 H BUN Creatinine 0.6 L Glucose 149 H Total Creatine Kinase CK-MB (CK-2) Troponin T Albumin 3.2 L HDL Cholesterol 05/15/19 07:37 WBC RBC RDW Lymph % (Auto) Lymph # Seg Neutrophils % ABG pH ABG pO2 ABG HCO3 ABG Base Excess ABG Hemoglobin Potassium Carbon Dioxide 31 H BUN 21 H Creatinine Glucose 102 H Total Creatine Kinase CK-MB (CK-2) Troponin T Albumin HDL Cholesterol Chest x-ray: report reviewed (NO ACUTE FINDINGS.), image reviewed
[2019-05-16] MEDS: TEMAZEPAM 15 MG CAP PO SCH (21:36)
[2019-05-17] MEDS: IPRATROPIUM/ALBUTEROL SULFATE 3 ML AMPUL.NEB IH SCH ×4 (02:08→20:59)
[2019-05-17] MEDS: methylPREDNISolone Sod Succinate 125 MG/2 ML INJ IV SCH ×3 (05:23→21:47)
[2019-05-17] MEDS: BUDESONIDE 0.5 MG/2 ML NEBU IH SCH ×2 (09:28→20:59)
[2019-05-17] MEDS: ARFORMOTEROL 15 MCG/2 ML NEBU IH SCH ×2 (09:29→20:59)
[2019-05-17] MEDS: FAMOTIDINE 20 MG TAB PO SCH ×2 (10:46→21:47)
[2019-05-17] MEDS: TAMSULOSIN 0.4 MG CAP PO SCH (10:46)
[2019-05-17] MEDS: APIXABAN 5 MG TAB PO SCH ×2 (10:46→21:47)
[2019-05-17] MEDS: amLODIPine 5 MG TAB PO SCH (10:46)
[2019-05-17] MEDS: LORazepam 0.5 MG TAB PO SCH (10:46)
--- NOTE | 2019-05-17 13:16 | Progress Note ---
Assessment and Plan Assessment and plan: Patient is a 64 yo woman with a history of prior intubation due to COPD, CHF, hypertension, OA and anxiety who presents with SOB. She was found with a pulse ox of only 72% on 2 liters. She was given Solu-Medrol and placed on BiPAP. Acute respiratory failure with hypoxia: try to wean off BIPAP IV Solumedrol, nebs, abx, pAfib: on Eliquis Positive tropnin likely type 2 TN no clear evidence of NSTEMI- Obtain cardiology eval Acute COPD exacerbation: treat with IV steroid, nebs, and abx. per discussion usama valentnie endstaged copd, patient states ambulation is severely limited at baseline Anxiety disorder: Cont anxiolytics OAB (overactive bladder) Off label use of Flomax HTN (hypertension): Monitor BP and adjust meds as necessary DVT prophylaxis: On Eliquis full code Disposition: continue inpatients, d/c once patient weaned off Bipap, stop this morning for breakfast Patient was upset about restraints used for + but mental clear now No further need of restraints. History Interval history: Patient seen and examined, reports baseline shortness of breath and limited ambulation secondary to the same. she is anxious to be discharged, but agreed to stay one extra day. still reports shortness of breath but able to complete sentences, denies any fever Hospitalist Physical - Physical exam Narrative exam: Gen: WDWN, ill appearing, NAD, Awake, Alert, Orientated x 3 HEENT: NCAT, EOMI, PERRL, OP Clear Neck: supple, no adenopathy, no thyromegaly, no JVD CVS/Heart: RRR, normal S1S2, pulses present bilaterally Chest/Lungs: diminished bs bilateral, Symmetrical chest expansion, good air entry bilaterally, mild accessory muscle use GI/Abdomen: soft, NTND, good bowel sounds, no guarding or rebound /Bladder: no suprapubic tenderness, no CVA or paraspinal tenderness Extermity/Skin: no c/c/e, no obvious rash MSK: FROM x 4 Neuro: CN 2-12 grossly intact, no new focal deficits Psych: calm - Constitutional Vitals: Temp Pulse Resp BP Pulse Ox 98.6 F 109 H 18 110/69 94 05/17/19 11:49 05/17/19 11:49 05/17/19 11:49 05/17/19 11:49 05/17/19 11:49 General appearance: Present: well-nourished Results - Labs CBC & Chem 7: 05/15/19 07:37 05/15/19 07:37 Labs: Laboratory Last Values WBC 8.5 K/mm3 (4.5-11.0) 05/15/19 07:37 RBC 3.70 M/mm3 (3.65-5.03) 05/15/19 07:37 Hgb 10.5 gm/dl (10.1-14.3) 05/15/19 07:37 Hct 33.8 % (30.3-42.9) 05/15/19 07:37 MCV 91 fl (79-97) 05/15/19 07:37 MCH 28 pg (28-32) 05/15/19 07:37 MCHC 31 % (30-34) 05/15/19 07:37 RDW 16.3 % (13.2-15.2) H 05/15/19 07:37 Plt Count 357 K/mm3 (140-440) 05/15/19 07:37 Lymph % (Auto) 13.5 % (13.4-35.0) 05/14/19 03:56 [place] % (Auto) 1.7 % (0.0-7.3) 05/14/19 03:56 Eos % (Auto) 0.1 % (0.0-4.3) 05/14/19 03:56 Baso % (Auto) 0.6 % (0.0-1.8) 05/14/19 03:56 Lymph # 0.6 K/mm3 (1.2-5.4) L 05/14/19 03:56 [place] # 0.1 K/mm3 (0.0-0.8) 05/14/19 03:56 Eos # 0.0 K/mm3 (0.0-0.4) 05/14/19 03:56 Baso # 0.0 K/mm3 (0.0-0.1) 05/14/19 03:56 Seg Neutrophils % 84.1 % (40.0-70.0) H 05/14/19 03:56 Seg Neutrophils # 3.6 K/mm3 (1.8-7.7) 05/14/19 03:56 ABG pH 7.305 pH Units (7.350-7.450) L 05/14/19 18:40 ABG pCO2 83.2 mm Hg 05/14/19 18:40 ABG pO2 117.5 mm Hg (80.0-90.0) H 05/14/19 18:40 ABG HCO3 40.4 mmol/L (20.0-26.0) H 05/14/19 18:40 ABG O2 Saturation 97.7 % (95.0-99.0) 05/14/19 18:40 ABG O2 Content 13.6 (0.0-44) 05/14/19 18:40 ABG Base Excess 11.7 mmol/L (-2.0-3.0) H 05/14/19 18:40 ABG Hemoglobin 9.9 gm/dl (12.0-16.0) L 05/14/19 18:40 ABG Carboxyhemoglobin 1.5 % (0.0-5.0) 05/14/19 18:40 ABG Methemoglobin 0.6 % (0.0-1.5) 05/14/19 18:40 Oxyhemoglobin 95.6 % (95.0-99.0) 05/14/19 18:40 FiO2 44 % 05/14/19 18:40 Sodium 145 mmol/L (137-145) 05/15/19 07:37 Potassium 4.4 mmol/L (3.6-5.0) 05/15/19 07:37 Chloride 102.3 mmol/L (98-107) 05/15/19 07:37 Carbon Dioxide 31 mmol/L (22-30) H 05/15/19 07:37 Anion Gap 16 mmol/L 05/15/19 07:37 BUN 21 mg/dL (7-17) H 05/15/19 07:37 Creatinine 0.8 mg/dL (0.7-1.2) 05/15/19 07:37 Estimated GFR > 60 ml/min 05/15/19 07:37 BUN/Creatinine Ratio 26 % 05/15/19 07:37 Glucose 102 mg/dL (65-100) H 05/15/19 07:37 Hemoglobin A1c 4.7 % (4-6) 05/13/19 14:58 Lactic Acid 0.90 mmol/L (0.7-2.0) 05/13/19 14:58 Calcium 9.5 mg/dL (8.4-10.2) 05/15/19 07:37 Total Bilirubin 0.40 mg/dL (0.1-1.2) 05/14/19 03:56 AST 19 units/L (5-40) 05/14/19 03:56 ALT 9 units/L (7-56) 05/14/19 03:56 Alkaline Phosphatase 60 units/L (35-129) 05/14/19 03:56 Total Creatine Kinase 272 units/L (30-135) H 05/13/19 14:58 CK-MB (CK-2) 5.4 ng/mL (0.0-4.0) H 05/13/19 14:58 CK-MB (CK-2) Rel Index 1.9 (0-4) 05/13/19 14:58 Troponin T 0.101 ng/mL (0.00-0.029) H* 05/13/19 14:58 Total Protein 7.2 g/dL (6.3-8.2) 05/14/19 03:56 Albumin 3.2 g/dL (3.9-5) L 05/14/19 03:56 Albumin/Globulin Ratio 0.8 % 05/14/19 03:56 Triglycerides 69 mg/dL (2-149) 05/13/19 14:58 Cholesterol 132 mg/dL (50-199) 05/13/19 14:58 LDL Cholesterol Direct 65 mg/dL (50-130) 05/13/19 14:58 HDL Cholesterol 62 mg/dL (40-59) H 05/13/19 14:58 Cholesterol/HDL Ratio 2.12 % 05/13/19 14:58 Active Medications - Current Medications Current Medications: Generic Name Dose Route Start Last Admin Trade Name Freq PRN Reason Stop Dose Admin Acetaminophen 650 mg 05/13/19 21:42 05/15/19 18:07 Tylenol PO 650 mg Q4H PRN Administration Pain MILD(1-3)/Fever >100.5/SKINNER Albuterol 2.5 mg 05/13/19 22:59 05/14/19 03:33 Proventil IH 2.5 mg Q3HRT PRN Administration Wheezing Albuterol/Ipratropium 1 ampul 11/10/19 20:00 05/17/19 09:28 Duoneb *Not For Prn Use* IH 1 ampul Q6HRT SHIVAM Administration Amlodipine Besylate 5 mg 05/13/19 22:00 05/17/19 10:46 Amlodipine PO 5 mg QDAY SHIVAM Administration Apixaban 5 mg 05/14/19 22:00 05/17/19 10:46 Eliquis PO 5 mg BID SHIVAM Administration Protocol Arformoterol Tartrate 15 mcg 05/13/19 22:00 05/17/19 09:29 Brovana Nebu IH 15 mcg Q12HRT SHIVAM Administration Budesonide 0.5 mg 05/14/19 13:16 05/17/19 09:28 Pulmicort IH 0.5 mg Q12HRT SHIVAM Administration Famotidine 20 mg 05/13/19 22:00 05/17/19 10:46 Pepcid PO 20 mg BID SHIVAM Administration Hydromorphone HCl 0.5 mg 05/13/19 21:42 Dilaudid IV Q3H PRN Pain , Severe (7-10) Levofloxacin/Dextrose 750 mg in 150 mls @ 100 mls/hr 05/13/19 22:00 05/17/19 01:44 Levaquin 750mg/150ml IV 05/17/19 23:29 Infused Q24HR@2200 [facility] Infusion Protocol Lorazepam 1 mg 05/13/19 22:00 05/17/19 10:46 Ativan PO 1 mg DAILY SHIVAM Administration Methylprednisolone Sodium Succinate 60 mg 05/13/19 22:00 05/17/19 05:23 Solu-Medrol IV 60 mg Q8HR SHIVAM Administration Ondansetron HCl 4 mg 05/13/19 21:42 Zofran IV Q8H PRN Nausea And Vomiting Oxycodone/Acetaminophen 1 tab 05/13/19 21:42 05/15/19 21:45 Percocet 5/325 PO 1 tab Q6H PRN Administration Pain, Moderate (4-6) Sodium Chloride 10 ml 05/13/19 22:00 05/17/19 10:48 Sodium Chloride Flush Syringe 10 Ml IV 10 ml BID SHIVAM Administration Sodium Chloride 10 ml 05/13/19 21:42 Sodium Chloride Flush Syringe 10 Ml IV PRN PRN LINE FLUSH Tamsulosin HCl 0.4 mg 05/14/19 10:00 05/17/19 10:46 Flomax PO 0.4 mg QDAY SHIVAM Administration Temazepam 15 mg 05/14/19 22:00 05/16/19 21:36 Restoril PO 15 mg DAILY@2200 SHIVAM Administration
--- NOTE | 2019-05-17 14:59 | Consultation ---
History of Present Illness Consult date: 05/17/19 Consult reason: elevated troponin History of present illness: This is a frail 64-year old woman with chronic respiratory failure and COPD on home oxygen who was admitted 05/13 with acute hypoxic respiratory failure. A cardiac consultation has been requested for elevated troponin measured four days ago. There were no reports of chest pain. An ECG is sinus rhythm. No acute ST or T wave changes. Patient has no prior cardiac history. She is on Eliquis therapy for upper left extremity DVT diagnosed six months ago at [facility], [place] per patient. Her latest cardiac workup was an echocardiogram done early this year that reports a normal left ventricular systolic function, ejection fraction 55-60%. Medications and Allergies Allergies Allergy/AdvReac Type Severity Reaction Status Date / Time aspirin AdvReac Unknown Verified 10/12/16 21:44 Home Medications Medication Instructions Recorded Confirmed Last Taken Type Budesoni/Formotero 160-4.5(Nf) 2 puff IH BID MDD BID 10/12/16 05/17/19 05/12/19 History [Symbicort 160-4.5 (Nf)] LORazepam [Ativan] 1 mg PO DAILY MDD 1 10/12/16 05/17/19 1 Month Ago History ~04/16/19 Temazepam 15 mg PO DAILY 01/19/17 05/17/19 01/19/17 History Flomax 0.4 mg PO DAILY MDD 0.4 03/08/17 05/17/19 03/07/17 History 0.4 amLODIPine 5 mg PO QDAY tablet 03/11/17 05/17/19 05/12/19 Rx Budesonide [Pulmicort Respules] 1 mg IH Q12HRT #30 nebu 04/26/17 05/17/19 05/12/19 Rx Famotidine 20 mg PO BID #60 tablet 04/26/17 05/17/19 05/12/19 Rx levoFLOXacin [Levaquin TAB] 750 mg PO DAILY #5 tablet 04/26/17 05/17/19 Unknown Rx predniSONE [Prednisone] 10 mg PO Q24H #10 tablet 04/26/17 05/17/19 1 Week Ago Rx ~05/10/19 Apixaban [Eliquis] 5 mg PO DAILY 05/14/19 05/17/19 05/12/19 History Furosemide [Lasix] 20 mg PO QDAY 05/17/19 05/17/19 05/12/19 History Active Meds: Active Medications Acetaminophen (Tylenol) 650 mg PO Q4H PRN PRN Reason: Pain MILD(1-3)/Fever >100.5/SKINNER Last Admin: 05/15/19 18:07 Dose: 650 mg Documented by: Albuterol (Proventil) 2.5 mg IH Q3HRT PRN PRN Reason: Wheezing Last Admin: 05/14/19 03:33 Dose: 2.5 mg Documented by: Albuterol/Ipratropium (Duoneb *Not For Prn Use*) 1 ampul IH Q6HRT [facility] Last Admin: 05/17/19 09:28 Dose: 1 ampul Documented by: Amlodipine Besylate (Amlodipine) 5 mg PO QDAY [facility] Last Admin: 05/17/19 10:46 Dose: 5 mg Documented by: Apixaban (Eliquis) 5 mg PO BID [facility]; Protocol Last Admin: 05/17/19 10:46 Dose: 5 mg Documented by: Arformoterol Tartrate (Brovana Nebu) 15 mcg IH Q12HRT [facility] Last Admin: 05/17/19 09:29 Dose: 15 mcg Documented by: Budesonide (Pulmicort) 0.5 mg IH Q12HRT [facility] Last Admin: 05/17/19 09:28 Dose: 0.5 mg Documented by: Famotidine (Pepcid) 20 mg PO BID [facility] Last Admin: 05/17/19 10:46 Dose: 20 mg Documented by: Hydromorphone HCl (Dilaudid) 0.5 mg IV Q3H PRN PRN Reason: Pain , Severe (7-10) Levofloxacin/Dextrose (Levaquin 750mg/150ml) 750 mg in 150 mls @ 100 mls/hr IV Q24HR@2200 [facility]; Protocol Stop: 05/17/19 23:29 Last Infusion: 05/17/19 01:44 Dose: Infused Documented by: Lorazepam (Ativan) 1 mg PO DAILY [facility] Last Admin: 05/17/19 10:46 Dose: 1 mg Documented by: Methylprednisolone Sodium Succinate (Solu-Medrol) 60 mg IV Q8HR [facility] Last Admin: 05/17/19 05:23 Dose: 60 mg Documented by: Ondansetron HCl (Zofran) 4 mg IV Q8H PRN PRN Reason: Nausea And Vomiting Oxycodone/Acetaminophen (Percocet 5/325) 1 tab PO Q6H PRN PRN Reason: Pain, Moderate (4-6) Last Admin: 05/15/19 21:45 Dose: 1 tab Documented by: Sodium Chloride (Sodium Chloride Flush Syringe 10 Ml) 10 ml IV BID [facility] Last Admin: 05/17/19 10:48 Dose: 10 ml Documented by: Sodium Chloride (Sodium Chloride Flush Syringe 10 Ml) 10 ml IV PRN PRN PRN Reason: LINE FLUSH Tamsulosin HCl (Flomax) 0.4 mg PO QDAY [facility] Last Admin: 05/17/19 10:46 Dose: 0.4 mg Documented by: Temazepam (Restoril) 15 mg PO DAILY@2200 [facility] Last Admin: 05/16/19 21:36 Dose: 15 mg Documented by: Physical Examination Vital Signs Temp Pulse Resp BP Pulse Ox 97.8 F 93 H 28 H 119/63 92 05/13/19 14:00 05/13/19 14:00 05/13/19 14:00 05/13/19 14:00 05/13/19 14:00 General appearance: no acute distress HEENT: Positive: PERRL Neck: Positive: trachea midline Cardiac: Positive: Reg Rate and Rhythm Lungs: Positive: Decreased Breath Sounds Neuro: Positive: Grossly Intact Extremities: Absent: edema Results 05/15/19 07:37 05/15/19 07:37 Assessment and Plan Acute hypoxic respiratory failure COPD on home oxygen Elevated troponin Hx of LUE DVT -on eliquis for oral anticoagulation We will obtain an echocardiogram for LVEF assessment.
--- NOTE | 2019-05-17 18:21 | Progress Note ---
Assessment and Plan Patient sleeping at this time. On 3 litres O2. O2 saturation 95%.BIPAP. 15/8, rate 20,FIO2 30% stand by in the room. Patient afebrile and no leukocytosis. - Patient Problems (1) Acute respiratory failure with hypoxia Current Visit: Yes Status: Acute Plan to address problem: BIPAP 15/8, rate 20, FIO2 30%. O2 3 litres O2 when he is not on BIPAP. Albuterol/atrovent aerosol treatments q 6 hours. Continue I/V solumedrol. Patient is on Apixaban. Continue Pepcid. Continue levaquin. (2) COPD exacerbation Current Visit: Yes Status: Acute Plan to address problem: IPAP 15/8, rate 20, FIO2 30%. O2 3 litres O2 when he is not on BIPAP Albuterol/atrovent aerosol treatments q 6 hours. Continue I/V solumedrol. Patient is on Apixaban. Continue Pepcid. Continue Levaquin. (3) Elevated troponin I level Current Visit: Yes Status: Acute Plan to address problem: Management as per primary care and cardiology. (4) Anxiety Current Visit: Yes Status: Acute Plan to address problem: Patient is on Ativan Subjective Date of service: 05/17/19 Principal diagnosis: Ac on Ch hypoxemic resp failure; AE-COPD; HTN; CAD; tobacco abuse Interval history: Patient sleeping at this time. On 3 litres O2. O2 saturation 95%.BIPAP. 15/8, rate 20,FIO2 30% stand by in the room. Patient afebrile and no leukocytosis. Objective Vital Signs - 12hr 05/17/19 05/17/19 05/17/19 07:55 11:49 15:57 Temperature 97.9 F 98.6 F 97.9 F Pulse Rate 82 109 H 101 H Respiratory 18 18 18 Rate Blood Pressure 135/85 110/69 114/67 O2 Sat by Pulse 96 94 95 Oximetry Constitutional: no acute distress, asleep, other (Sleeping with BIPAP) Eyes: non-icteric ENT: oropharynx moist Neck: supple, no lymphadenopathy Effort: normal Ascultation: Bilateral: diminished breath sounds, rhonchi, other (Prolonged expiratory phase.) Percussion: Bilateral: not dull Cardiovascular: regular rate and rhythm Gastrointestinal: normoactive bowel sounds, soft Integumentary: normal Extremities: no cyanosis, no edema Neurologic: other (Patient sleeping at this time.) Psychiatric: other (Patient sleeping at this time.) CBC and BMP: 05/15/19 07:37 05/15/19 07:37 ABG, PT/INR, D-dimer: ABG ABG pH 7.305 pH Units (7.350-7.450) L 05/14/19 18:40 ABG pCO2 83.2 mm Hg 05/14/19 18:40 ABG pO2 117.5 mm Hg (80.0-90.0) H 05/14/19 18:40 ABG O2 Saturation 97.7 % (95.0-99.0) 05/14/19 18:40 Abnormal lab findings: Abnormal Labs 05/13/19 05/13/19 05/14/19 14:58 14:58 03:56 WBC 4.3 L RBC 3.56 L RDW 16.9 H 16.0 H Lymph % (Auto) 11.0 L Lymph # 0.9 L 0.6 L Seg Neutrophils % 81.1 H 84.1 H ABG pH ABG pO2 ABG HCO3 ABG Base Excess ABG Hemoglobin Potassium 3.4 L Carbon Dioxide BUN Creatinine 0.6 L Glucose Total Creatine Kinase 272 H CK-MB (CK-2) 5.4 H Troponin T 0.101 H* Albumin 3.0 L HDL Cholesterol 62 H 05/14/19 05/14/19 05/15/19 03:56 18:40 07:37 WBC RBC RDW 16.3 H Lymph % (Auto) Lymph # Seg Neutrophils % ABG pH 7.305 L ABG pO2 117.5 H ABG HCO3 40.4 H ABG Base Excess 11.7 H ABG Hemoglobin 9.9 L Potassium Carbon Dioxide 31 H BUN Creatinine 0.6 L Glucose 149 H Total Creatine Kinase CK-MB (CK-2) Troponin T Albumin 3.2 L HDL Cholesterol 05/15/19 07:37 WBC RBC RDW Lymph % (Auto) Lymph # Seg Neutrophils % ABG pH ABG pO2 ABG HCO3 ABG Base Excess ABG Hemoglobin Potassium Carbon Dioxide 31 H BUN 21 H Creatinine Glucose 102 H Total Creatine Kinase CK-MB (CK-2) Troponin T Albumin HDL Cholesterol Allied health notes reviewed: nursing
[2019-05-17] MEDS: TEMAZEPAM 15 MG CAP PO SCH (21:46)
[2019-05-18] MEDS: IPRATROPIUM/ALBUTEROL SULFATE 3 ML AMPUL.NEB IH SCH ×3 (02:31→15:19)
[2019-05-18 02:51] LABS: Creatine Kinase MB 1.5 ng/mL (0.0-4.0)
[2019-05-18] MEDS: BUDESONIDE 0.5 MG/2 ML NEBU IH SCH (08:26)
[2019-05-18] MEDS: ARFORMOTEROL 15 MCG/2 ML NEBU IH SCH (08:26)
[2019-05-18] MEDS ORDERED: REGADENOSON 0.4 MG/5 ML INJ IV ONE ×2 (08:36→08:38)
--- NOTE | 2019-05-18 12:13 | Progress Note ---
Assessment and Plan Acute hypoxic respiratory failure COPD on home oxygen Elevated troponin Hx of LUE DVT -on eliquis for oral anticoagulation Lexiscan performed today shows no inducible ischemia. Ejection fraction is 69%. Recommend continue medical therapy for treatment of COPD. Subjective Date of service: 05/18/19 Principal diagnosis: Ac on Ch hypoxemic resp failure; AE-COPD; HTN; CAD; tobacco abuse Interval history: No acute events. Resting comfortably. No chest pain or shortness of breath. Objective Vital Signs Temp Pulse Pulse Pulse Resp Resp Resp 05/18/19 11:41 98.6 F 94 H 18 05/18/19 09:59 05/18/19 09:58 05/18/19 09:57 05/18/19 09:55 05/18/19 09:54 05/18/19 09:53 05/18/19 09:51 05/18/19 09:48 05/18/19 09:41 05/18/19 09:05 103 H 99 H 20 20 05/18/19 08:27 05/18/19 08:21 97.9 F 88 18 05/18/19 03:47 97.8 F 88 18 05/18/19 02:31 102 H 104 H 20 20 05/17/19 22:18 98.4 F 106 H 18 05/17/19 21:49 70 25 H 05/17/19 21:03 05/17/19 20:59 96 H 98 H 20 20 05/17/19 19:32 97.8 F 96 H 20 05/17/19 15:57 97.9 F 101 H 18 05/17/19 15:30 98 H 88 18 18 BP Pulse Ox 05/18/19 11:41 138/79 95 05/18/19 09:59 101/59 05/18/19 09:58 113/60 05/18/19 09:57 106/61 05/18/19 09:55 108/57 05/18/19 09:54 112/56 05/18/19 09:53 115/55 05/18/19 09:51 119/55 05/18/19 09:48 129/79 05/18/19 09:41 129/78 05/18/19 09:05 05/18/19 08:27 97 05/18/19 08:21 140/81 100 05/18/19 03:47 113/66 96 05/18/19 02:31 05/17/19 22:18 105/60 94 05/17/19 21:49 96 05/17/19 21:03 99 05/17/19 20:59 05/17/19 19:32 116/70 98 05/17/19 15:57 114/67 95 05/17/19 15:30 - Physical Examination HEENT: Positive: PERRL Neck: Positive: trachea midline Neuro: Positive: Grossly Intact Extremities: Absent: edema - Labs and Meds Cardiac Enzymes 05/17/19 Range/Units 22:49 CK-MB (CK-2) 1.5 (0.0-4.0) ng/mL - Imaging and Cardiology EKG: report reviewed - Allied health notes Allied health notes reviewed: nursing
--- NOTE | 2019-05-18 12:29 | Discharge Summary ---
Providers - Providers Date of Admission: 05/13/19 16:19 Attending physician: SARAY MILLS MD 05/13/19 21:42 Consult to Physician [CONS] Routine Comment: Consulting Provider: ELO PENDLETON Physician Instructions: Reason For Exam: COPD exacerbation 05/17/19 12:47 Consult to Physician [CONS] Routine Comment: Consulting Provider: MICHAEL MARTINEZ Physician Instructions: Reason For Exam: nstemi Primary care physician: HR REPRESENTATIVE Hospitalization Reason for admission: shortness of breath Condition: Stable Hospital course: Patient is a 64 yo woman with a history of prior intubation due to COPD, CHF, hypertension, OA and anxiety who presents with SOB. She was found with a pulse ox of only 72% on 2 liters. She was given Solu-Medrol and placed on BiPAP. Patient was upset about restraints used for + but mental clear now No further need of restraints. Patient underwent stress test but showed no inducible ischemia. The patient was also seen by cardiology, EF was 69% Patient REPORTS AT baseline that she has baseline dyspnea with less than 15 feet Acute respiratory failure with hypoxia: Patient was initially on BIPAP with IV Solumedrol, nebs, abx, and then tapered off. pAfib: on Eliquis Positive tropnin likely type 2 MA NTEMI RULED OUT Acute COPD exacerbation: treated with IV steroid, nebs, and abx. per discussion likely endstaged copd, patient states ambulation is severely limited at baseline Anxiety disorder: Cont anxiolytics OAB (overactive bladder) Off label use of Flomax HTN (hypertension): Monitor BP and adjust meds as necessary Hx of LUE DVT -on eliquis for oral anticoagulation Disposition: DC-01 TO HOME OR SELFCARE Time spent for discharge: 35 mins Core Measure Documentation - Palliative Care Palliative Care/ Comfort Measures: Not Applicable - Core Measures Any of the following diagnoses?: none Exam - Physical Exam Narrative exam: Gen: WDWN, ill appearing, NAD, Awake, Alert, Orientated x 3 HEENT: NCAT, EOMI, PERRL, OP Clear Neck: supple, no adenopathy, no thyromegaly, no JVD CVS/Heart: RRR, normal S1S2, pulses present bilaterally Chest/Lungs: diminished bs bilateral, Symmetrical chest expansion, good air entry bilaterally, mild accessory muscle use GI/Abdomen: soft, NTND, good bowel sounds, no guarding or rebound /Bladder: no suprapubic tenderness, no CVA or paraspinal tenderness Extermity/Skin: no c/c/e, no obvious rash MSK: FROM x 4 Neuro: CN 2-12 grossly intact, no new focal deficits Psych: calm - Constitutional Vitals: Temp Pulse Resp BP Pulse Ox 98.6 F 94 H 18 138/79 95 05/18/19 11:41 05/18/19 11:41 05/18/19 11:41 05/18/19 11:41 05/18/19 11:41 Plan Activity: advance as tolerated, fall precautions Diet: low fat Special Instructions: record daily BP diary, home oxygen via (nasal cannula @ 2 liters per minute) Care Plan Goals: improved oxygenation status Plan of Treatment: steroids taper Health Concerns: complications from COPD Follow up with: PRIMARY CAREMD [Primary Care Provider] - 7 Days ELO PENDLETON MD [Staff Physician] - 7 Days MICHAEL MARTINEZ MD [Staff Physician] - 7 Days Prescriptions: Prednisone [predniSONE 10 mg (6-Day Pack, 21 Tabs)] 10 mg PO .TAPER #1 tab.ds.pk
[2019-05-18] MEDS: TAMSULOSIN 0.4 MG CAP PO SCH (15:15)
[2019-05-18] MEDS: amLODIPine 5 MG TAB PO SCH (15:15)
[2019-05-18] MEDS: APIXABAN 5 MG TAB PO SCH (15:15)
[2019-05-18] MEDS: FAMOTIDINE 20 MG TAB PO SCH (15:15)
[2019-05-18] MEDS: LORazepam 0.5 MG TAB PO SCH (15:16)
[2019-05-18] MEDS: methylPREDNISolone Sod Succinate 125 MG/2 ML INJ IV SCH (15:17)
[2019-05-18 15:48] VITALS: BP 110/73
--- NOTE | 2019-05-18 18:22 | Progress Note ---
Assessment and Plan . - Patient Problems (1) Acute respiratory failure with hypoxia Status: Acute (2) COPD exacerbation Status: Acute (3) Elevated troponin I level Status: Acute (4) Anxiety Status: Acute Subjective Date of service: 05/18/19 Principal diagnosis: Ac on Ch hypoxemic resp failure; AE-COPD; HTN; CAD; tobacco abuse Interval history: Patient left before I see her. Patient not seen by me today. Objective Vital Signs - 12hr 05/18/19 05/18/19 05/18/19 08:21 08:27 09:05 Temperature 97.9 F Pulse Rate 88 Pulse Rate [ 103 H Anterior Bilateral Throughout] Pulse Rate [ Apical] Pulse Rate [ 99 H Posterior Bilateral Throughout] Respiratory 18 Rate Respiratory 20 Rate [Anterior Bilateral Throughout] Respiratory 20 Rate [Posterior Bilateral Throughout] Blood Pressure 140/81 O2 Sat by Pulse 100 97 Oximetry 05/18/19 05/18/19 05/18/19 09:41 09:48 09:51 Temperature Pulse Rate Pulse Rate [ Anterior Bilateral Throughout] Pulse Rate [ Apical] Pulse Rate [ Posterior Bilateral Throughout] Respiratory Rate Respiratory Rate [Anterior Bilateral Throughout] Respiratory Rate [Posterior Bilateral Throughout] Blood Pressure 129/78 129/79 119/55 O2 Sat by Pulse Oximetry 05/18/19 05/18/19 05/18/19 09:53 09:54 09:55 Temperature Pulse Rate Pulse Rate [ Anterior Bilateral Throughout] Pulse Rate [ Apical] Pulse Rate [ Posterior Bilateral Throughout] Respiratory Rate Respiratory Rate [Anterior Bilateral Throughout] Respiratory Rate [Posterior Bilateral Throughout] Blood Pressure 115/55 112/56 108/57 O2 Sat by Pulse Oximetry 05/18/19 05/18/19 05/18/19 09:57 09:58 09:59 Temperature Pulse Rate Pulse Rate [ Anterior Bilateral Throughout] Pulse Rate [ Apical] Pulse Rate [ Posterior Bilateral Throughout] Respiratory Rate Respiratory Rate [Anterior Bilateral Throughout] Respiratory Rate [Posterior Bilateral Throughout] Blood Pressure 106/61 113/60 101/59 O2 Sat by Pulse Oximetry 05/18/19 05/18/19 05/18/19 10:00 11:41 12:00 Temperature 98.6 F Pulse Rate 110 H 94 H Pulse Rate [ Anterior Bilateral Throughout] Pulse Rate [ 110 H Apical] Pulse Rate [ Posterior Bilateral Throughout] Respiratory 18 18 Rate Respiratory Rate [Anterior Bilateral Throughout] Respiratory Rate [Posterior Bilateral Throughout] Blood Pressure 138/79 O2 Sat by Pulse 95 Oximetry 05/18/19 05/18/19 05/18/19 15:15 15:43 15:46 Temperature 98.3 F Pulse Rate 117 H 107 H Pulse Rate [ 103 H Anterior Bilateral Throughout] Pulse Rate [ Apical] Pulse Rate [ 96 H Posterior Bilateral Throughout] Respiratory 18 Rate Respiratory 20 Rate [Anterior Bilateral Throughout] Respiratory 20 Rate [Posterior Bilateral Throughout] Blood Pressure 110/73 O2 Sat by Pulse 95 Oximetry Effort: normal Psychiatric: other (Patient sleeping at this time.) CBC and BMP: 05/15/19 07:37 05/15/19 07:37 ABG, PT/INR, D-dimer: ABG ABG pH 7.305 pH Units (7.350-7.450) L 05/14/19 18:40 ABG pCO2 83.2 mm Hg 05/14/19 18:40 ABG pO2 117.5 mm Hg (80.0-90.0) H 05/14/19 18:40 ABG O2 Saturation 97.7 % (95.0-99.0) 05/14/19 18:40 Abnormal lab findings: Abnormal Labs 05/13/19 05/13/19 05/14/19 14:58 14:58 03:56 WBC 4.3 L RBC 3.56 L RDW 16.9 H 16.0 H Lymph % (Auto) 11.0 L Lymph # 0.9 L 0.6 L Seg Neutrophils % 81.1 H 84.1 H ABG pH ABG pO2 ABG HCO3 ABG Base Excess ABG Hemoglobin Potassium 3.4 L Carbon Dioxide BUN Creatinine 0.6 L Glucose Total Creatine Kinase 272 H CK-MB (CK-2) 5.4 H Troponin T 0.101 H* Albumin 3.0 L HDL Cholesterol 62 H 05/14/19 05/14/19 05/15/19 03:56 18:40 07:37 WBC RBC RDW 16.3 H Lymph % (Auto) Lymph # Seg Neutrophils % ABG pH 7.305 L ABG pO2 117.5 H ABG HCO3 40.4 H ABG Base Excess 11.7 H ABG Hemoglobin 9.9 L Potassium Carbon Dioxide 31 H BUN Creatinine 0.6 L Glucose 149 H Total Creatine Kinase CK-MB (CK-2) Troponin T Albumin 3.2 L HDL Cholesterol 05/15/19 07:37 WBC RBC RDW Lymph % (Auto) Lymph # Seg Neutrophils % ABG pH ABG pO2 ABG HCO3 ABG Base Excess ABG Hemoglobin Potassium Carbon Dioxide 31 H BUN 21 H Creatinine Glucose 102 H Total Creatine Kinase CK-MB (CK-2) Troponin T Albumin HDL Cholesterol Allied health notes reviewed: nursing
--- NOTE | 2019-05-19 12:21 | Treadmill Report ---
THALLIUM STRESS TEST LEFT VENTRICLE: Left ventricular chamber size within normal limits. Perfusion study demonstrates homogeneous uptake of the tracer in all segments, no significant defects identified. Gated analysis demonstrates normal left ventricular systolic function, ejection fraction 69%. CONCLUSION: Normal myocardial perfusion study. JOB# [id number] CA/NTS
== END 2019-05-18 18:36 | disposition home health service (06) | DRG 189 ==
LOC: ED 13:25 → 4A 16:19
PROVIDERS: ADMIT Internal Medicine; ATTEND Internal Medicine
PROC: 5A09357 Assistance with Respiratory Ventilation, Less than 24 Consecutive Hours, Continuous Positive Airway Pressure (ICD-10-PCS; principal; 2019-05-14)
PROC: 4A033R1 Measurement of Arterial Saturation, Peripheral, Percutaneous Approach (ICD-10-PCS; 2019-05-14)
PROC: 5A09357 Assistance with Respiratory Ventilation, Less than 24 Consecutive Hours, Continuous Positive Airway Pressure (ICD-10-PCS; 2019-05-15)
PROC: 5A09357 Assistance with Respiratory Ventilation, Less than 24 Consecutive Hours, Continuous Positive Airway Pressure (ICD-10-PCS; 2019-05-16)
PROC: 5A09357 Assistance with Respiratory Ventilation, Less than 24 Consecutive Hours, Continuous Positive Airway Pressure (ICD-10-PCS; 2019-05-17)
DX: J96.21 Acute and chronic respiratory failure with hypoxia (principal); E87.6 Hypokalemia; J44.1 Chronic obstructive pulmonary disease with (acute) exacerbation; I25.10 Atherosclerotic heart disease of native coronary artery without angina pectoris; J44.9 Chronic obstructive pulmonary disease, unspecified; I11.0 Hypertensive heart disease with heart failure; I50.9 Heart failure, unspecified; F41.1 Generalized anxiety disorder; N32.81 Overactive bladder; I48.21 Permanent atrial fibrillation; F41.9 Anxiety disorder, unspecified; I25.2 Old myocardial infarction; Z87.891 Personal history of nicotine dependence; Z88.8 Allergy status to other drugs, medicaments and biological substances; Z79.899 Other long term (current) drug therapy; Z99.81 Dependence on supplemental oxygen; Z86.718 Personal history of other venous thrombosis and embolism; Z79.01 Long term (current) use of anticoagulants
CPT/HCPCS: 36415; 36600; 71045; 78452; 80048; 80053; 80061; 82140; 82550; 82553; 82803; 83036; 84484; 85025; 85027; 93005; 93010; 93017; 93306; 94640; 94644; 94660; 94760; 96374; G0378; A9502; J1170; J1650; J1956; J2785; J2930; J3475